=== PATIENT | male | born 1950 | race Caucasian/White ===

== ENCOUNTER 2016-09-04 22:00 | Inpatient (IN) | payer OTHER ==
[~2016-09-04] VITALS: Ht 172.7 cm; Wt 88.6 kg
[2016-09-04] MEDS ORDERED: TESTOSTERONE SUPP PO (22:29)
[2016-09-04] MEDS ORDERED: LEVO-519 PO (22:29)
[2016-09-04] MEDS ORDERED: MULT-513 PO (22:29)
[2016-09-04] MEDS ORDERED: LOSA50TA54 PO (22:29)
[2016-09-04] MEDS ORDERED: ACETAMINOPHEN 500 MG TAB PO STA (22:59)
[2016-09-04] MEDS ORDERED: CEFTRIAXONE SOD INJ 1 GM ADDVIAL IV STA (22:59)
[2016-09-04 23:59] LABS: PROTHROMBIN TIME (PATIENT) 10.7 SECONDS (9.0-12.0)
[2016-09-05 00:05] LABS: BUN/CREATININE RATIO 17.3 (10-20); CALCIUM 8.7 mg/dl (8.5-10.1); CREATININE 1.2 mg/dl (0.60-1.40); POTASSIUM 4.2 mmol/L (3.5-5.1)
[2016-09-05 00:08] LABS: ALB/GLOB RATIO 0.8 (0.9-2)
[2016-09-05 00:16] LABS: BASO % 0.1 %; BASO ABS # 0.02 K/uL (0-0.2); COMPLETE YES; EOS % 0.1 %; HEMATOCRIT 36.7 % (42-52); IG% 0.1 %; LYMPH % 6.1 %; LYMPH ABS # 0.86 K/uL (1.2-3.4); MEAN CELL VOLUME 86.6 fL (80-100); MEAN CORPUSCULAR HEMOGLOBIN 29.7 pg (25-34); MEAN CORPUSCULAR HGB CONC 34.3 g/dl (32-36); MEAN PLATELET VOLUME 10.9 fL (7.4-10.4); MONO % 7.2 %; NEUT % 86.4 %; PLATELET COUNT 85 K/uL (130-400); PLT ESTIMATE DECREASED; RED BLOOD COUNT 4.24 M/uL (4.7-6.1); WHITE BLOOD COUNT 14.08 K/uL (4.8-10.8)
[2016-09-05 00:38] LABS: LYME DISEASE AB IGG POS (NEG); LYME DISEASE AB IGM NEG (NEG)
[2016-09-05] MEDS ORDERED: OPTIRAY 320 IV PRN (01:15)
[2016-09-05] MEDS ORDERED: DOXYCYCLINE HYCLATE 100 MG CAP PO ONE (01:15)
--- NOTE | 2016-09-05 03:11 | EMERGENCY ROOM VISIT NOTE ---
History First contact with patient: 22:47 Chief Complaint: LEG PAIN,LEG INJURY Stated Complaint: RT LEG PAIN History of Present Illness The patient is a 65 year old male who presents to the Emergency Room with complaints of fever, chills, left knee and posterior thigh pain for the past day. Patient had tick bites before. No temperature was taken. Patient denies injury to the chest and, dyspnea, abdominal pain, vomiting, diarrhea, numbness, tingling. No IV drug abuse. No HIV. Review of Systems See HPI for pertinent positives & negatives. A total of 10 systems reviewed and were otherwise negative. Past Medical/Surgical History Hypertension, psoriasis, kidney stones, hypothyroidism, thrombocythemia Social History Smoking Status: Never Smoker Smokeless Tobacco Use: No Alcohol Use: none Drug Use: none Occupation Status: employed Current/Historical Medications Scheduled Levothyroxine Sodium (Synthroid), 137 MCG PO DAILY Losartan Potassium (Cozaar), 50 MG PO DAILY Multivitamins/Minerals (Mvi With Minerals), 1 TAB PO DAILY [Testosterone Supp], 1 TAB PO DAILY Allergies Uncoded Allergies: PCN (Allergy, Unknown, 10/24/02) Physical Exam Vital Signs Date Time Temp Pulse Resp B/P Pulse Ox O2 Delivery O2 Flow Rate FiO2 09/05/16 02:39 73 18 162/77 98 Room Air 09/05/16 00:40 85 18 138/68 97 Room Air 09/04/16 23:53 87 20 155/77 97 Room Air 09/04/16 22:08 37.8 107 20 168/94 97 Room Air Physical Exam VITALS: Vitals are noted on the nurse's note and reviewed by myself. Vital signs stable. GENERAL: Right posterior thigh erythematous and edematous concerning for cellulitis extending from the knee up to the groin region , in no acute distress , nondiaphoretic, well-developed well-nourished. SKIN: The skin was without rashes, erythema, edema, or bruising. There is no tenting of the skin. Capillary reflex less than 2 seconds. HEAD: Normocephalic atraumatic. EARS: External auditory canals clear, tympanic membranes pearly landry without erythema or effusion bilaterally. EYES: Pupils equal round and reactive to light and accommodation. Conjunctivae without injection, sclerae without icterus. Extraocular movements intact. NOSE: Patent, turbinates without inflammation or discharge. MOUTH: Mucous membranes moist. Pharynx without erythema or exudate. Uvula midline. Airway patent. Tongue does not deviate. NECK: Supple without nuchal rigidity. No lymphadenopathy. No thyromegaly. Cervical spine is nontender. No JVD. HEART: Regular rate and rhythm without murmurs gallops or rubs. LUNGS: Clear to auscultation bilaterally without wheezes, rales or rhonchi. No dullness to percussion. No retractions or accessory muscle use. ABDOMEN: Positive bowel sounds x 4. Normal tympanic percussion. Soft, nontender, without masses or organomegaly. Santo sign negative. No guarding or rebound tenderness. MUSCULOSKELETAL: No muscle atrophy, erythema, or edema noted. Right knee is slightly edematous and nontender to palpation. Right hip, ankle and foot nontender to palpation. Pedal pulses +2 equal present bilaterally. exam: No perineal infection, no testicular infection. Salon Manager present NEURO: Patient was alert and oriented to person place and time. Normal sensation to light and sharp touch. No focal neurological deficits. Medical Decision & Procedures Laboratory Results 09/04/16 23:30 Red Blood Count 4.24, Mean Corpuscular Volume 86.6, Mean Corpuscular Hemoglobin 29.7, Mean Corpuscular Hemoglobin Concent 34.3, Mean Platelet Volume 10.9, Neutrophils (%) (Auto) 86.4, Lymphocytes (%) (Auto) 6.1, Monocytes (%) (Auto) 7.2, Eosinophils (%) (Auto) 0.1, Basophils (%) (Auto) 0.1, Neutrophils # (Auto) 12.16, Lymphocytes # (Auto) 0.86, Monocytes # (Auto) 1.01, Eosinophils # (Auto) 0.01, Basophils # (Auto) 0.02 09/04/16 23:30 Test 09/04/16 23:30 09/04/16 23:45 White Blood Count 14.08 K/uL (4.8-10.8) Red Blood Count 4.24 M/uL (4.7-6.1) Hemoglobin 12.6 g/dL (14.0-18.0) Hematocrit 36.7 % (42-52) Mean Corpuscular Volume 86.6 fL (80-100) Mean Corpuscular Hemoglobin 29.7 pg (25-34) Mean Corpuscular Hemoglobin Concent 34.3 g/dl (32-36) Platelet Count 85 K/uL (130-400) Mean Platelet Volume 10.9 fL (7.4-10.4) Neutrophils (%) (Auto) 86.4 % Lymphocytes (%) (Auto) 6.1 % Monocytes (%) (Auto) 7.2 % Eosinophils (%) (Auto) 0.1 % Basophils (%) (Auto) 0.1 % Neutrophils # (Auto) 12.16 K/uL (1.4-6.5) Lymphocytes # (Auto) 0.86 K/uL (1.2-3.4) Monocytes # (Auto) 1.01 K/uL (0.11-0.59) Eosinophils # (Auto) 0.01 K/uL (0-0.5) Basophils # (Auto) 0.02 K/uL (0-0.2) RDW Standard Deviation 40.4 fL (36.4-46.3) RDW Coefficient of Variation 12.7 % (11.5-14.5) Immature Granulocyte % (Auto) 0.1 % Immature Granulocyte # (Auto) 0.02 K/uL (0.00-0.02) Platelet Estimate DECREASED Red Blood Cell Morphology Unremarkable Prothrombin Time 10.7 SECONDS (9.0-12.0) Prothromb Time International Ratio 1.0 (0.9-1.1) Activated Partial Thromboplast Time 25.4 SECONDS (21.0-31.0) Partial Thromboplastin Ratio 1.0 Anion Gap 9.0 mmol/L (3-11) Est Creatinine Clear Calc Drug Dose 68.7 ml/min Estimated GFR () 73.6 Estimated GFR (Non- 63.5 BUN/Creatinine Ratio 17.3 (10-20) Calcium Level 8.7 mg/dl (8.5-10.1) Total Bilirubin 0.8 mg/dl (0.2-1) Aspartate Amino Transf (AST/SGOT) 29 U/L (15-37) Alanine Aminotransferase (ALT/SGPT) 36 U/L (12-78) Alkaline Phosphatase 97 U/L (45-117) Total Protein 7.2 gm/dl (6.4-8.2) Albumin 3.3 gm/dl (3.4-5.0) Globulin 3.9 gm/dl (2.5-4.0) Albumin/Globulin Ratio 0.8 (0.9-2) Lyme Disease IgG Antibody POS (NEG) Bedside Lactic Acid Venous 1.21 mmol/L (0.90-1.70) Medications Administered Medications (Trade) Dose Ordered Sig/Jasmyne Route Start Time Stop Time Status Last Admin Dose Admin Ceftriaxone Sodium (Rocephin Inj) 1 gm NOW STAT IV 09/04/16 22:59 09/04/16 23:02 DC 09/04/16 23:49 1 GM Acetaminophen (Tylenol Tab) 1,000 mg NOW STAT PO 09/04/16 22:59 09/04/16 23:02 DC 09/04/16 23:49 1,000 MG Doxycycline Hyclate (Vibramycin Cap) 100 mg ONE ONCE PO 09/05/16 01:15 09/05/16 01:16 DC 09/05/16 01:10 100 MG ED Course Prior records reviewed and summarized as above. Triage Nursing notes reviewed. Additional history obtained from friend. The patient's history was concerning for swelling and redness of the skin. Differential diagnosis: Etiologies such as cellulitis, abscess, MRSA infection, DVT, necrotizing fasciitis, dermatitis, drug eruption, as well as others were entertained.. Physical examination: As above ER treatment provided: Rocephin, doxycycline On reassessment the patient felt better. Diagnostics interpreted by me: The labs revealed leukocytosis, thrombocytopenia, positive Lyme screen Imaging studies: Knee x-ray with soft tissue swelling without fracture per my interpretation CT EXTREMITY RIGHT LOWER: Comparison is made to right lower extremity venous ultrasound performed . Right knee demonstrates a large joint effusion. There is a multilobulated popliteal cyst extending from the popliteal fossa cephalad into the posterior soft tissues of the right thigh measuring approximately 1.8 x 3.4 x 18.2 cm. Mild peripheral enhancement within the popliteal cyst suggests synovitis. There is associated intramuscular edema within the posterior compartment of the thigh as well as edema along the fascial planes and in the subcutaneous tissues of the right thigh and leg. This may be a consequence of popliteal cyst rupture and/or cellulitis. Radiologist: Isaías Humphreys M.D. ultrasound was reviewed by radiology and CT was ordered per recommendation Consultation: A consultation was placed with Dr Noel, hospitalist. The case was discussed and diagnostics were reviewed. The patient was evaluated in the ER for further treatment. This appears to be extensive right leg cellulitis versus cyst rupture. Patient was febrile with a leukocytosis. He'll be evaluated by medicine. He was started on antibiotics. He had a positive Lyme screen. He was given doxycycline also. He has had tick bites in the past. Patient is agreeable to treatment plan. By the evaluation outlined above emergent etiologies such as DVT, as well as others were deemed relatively unlikely. The pt informed about the findings as listed above. All questions were answered and pleased with the treatment. case reviewed by my Attending Medical Decision As above Impression Primary Impression: Cellulitis of right leg Departure Information Dispostion Being Evaluated By Hospitalist Condition FAIR Referrals Rosalva Bowie M.D. (MEDICAL) (PCP) Patient Instructions A Signature Page, My [facility]
[2016-09-05] MEDS ORDERED: OXYCODONE/ACETAMINOPHEN 5-325 TAB PO PRN (05:00)
[2016-09-05] MEDS ORDERED: ONDANSETRON INJ 2 MG/ML 2 ML VIAL IV PRN (05:00)
[2016-09-05] MEDS ORDERED: CLONIDINE HCL 0.1 MG TAB PO PRN (05:00)
[2016-09-05] MEDS ORDERED: ACETAMINOPHEN 325 MG TAB PO PRN (05:00)
--- NOTE | 2016-09-05 05:04 | History and Physical ---
History & Physical Date & Time of Service: Sep 05, 2016 at 04:59 Chief Complaint: Rt Leg Pain Primary Care Physician: Rosalva Bowie M.D. (MEDICAL) History of Present Illness Source: patient, clinic records 65 year old male with history of hypertension, hypothyroidism presenting with right posterior knee and thigh swelling and pain x 2 days. Patient was at his usual state of health until about 2 days ago when he started to notice pain and swelling on the posterior aspect of his left knee, which eventually progressed to the posterior thigh. He also notes fever with this. He denies having any trauma to the leg. Last tick bite noted last year. Progression of symptoms prompted ER consult. Patient was received at the ER febrile, tachycardic,(+) leukocytosis. CT right leg reveals collection at the popliteal to the posterior thigh region. Doppler US of the right leg: no DVT. He was given Ceftri + Doxy. On my exam, patient was resting in bed, pleasant. He states his pain on the right thigh is severe. Denies any testicular pain. No chest pain, palpitations, dizziness, nausea/vomiting, abdominal pain, dyspnea. No other symptoms. Family History non contributory Social History Smoking Status: Never Smoker Smokeless Tobacco Use: No Drug Use: none Marital Status: Occupational Status: employed Multi-Drug Resistant Organisms History of MDRO: No Allergies Uncoded Allergies: PCN (Allergy, Unknown, 10/24/02) Home Medications Scheduled Levothyroxine Sodium (Synthroid), 137 MCG PO DAILY Losartan Potassium (Cozaar), 50 MG PO DAILY Multivitamins/Minerals (Mvi With Minerals), 1 TAB PO DAILY [Testosterone Supp], 1 TAB PO DAILY Review of Systems Constitutional- (+) as noted above Eyes- no acute visual changes ENT- no sinus drainage; no pharyngitis Pulmonary- no cough, no wheezing, no shortness of breath Cardiac- no chest pain, no palpitations, no orthopnea, no dependent edema GI- no nausea, no vomiting, no diarrhea, no melena, no hematochezia - no dysuria, no hematuria Musculoskeletal- (+) as noted above Derm- no rashes, no new skin lesions, no changing skin lesions Hematologic- no unusual bruising, no unusual bleeding Lymphatics- no adenopathy Endocrine- no polyuria or polydipsia; no heat or cold intolerance Neuro- no headaches, no focal neurologic symptoms Psych- no anxiety, no depression Physical Exam Vital Signs Date Time Temp Pulse Resp B/P Pulse Ox O2 Delivery O2 Flow Rate FiO2 09/05/16 04:39 82 18 146/62 97 Room Air 09/05/16 02:39 73 18 162/77 98 Room Air 09/05/16 00:40 85 18 138/68 97 Room Air 09/04/16 23:53 87 20 155/77 97 Room Air 09/04/16 22:08 37.8 107 20 168/94 97 Room Air General- adult , oriented x 3, not in distress, speaks in sentences with no effort Head- atraumatic Eyes- PERRL, EOMI, anicteric ENT- oropharynx clear Neck- supple, no JVD, no adenopathy, no thyromegaly Lungs- clear to auscultation bilaterally Heart-normal rate, regular rhythm; no murmur Abdomen- normal bowel sounds, soft, nontender Extremities- (+) right medial/posterior thigh edema, erythema, warmth, tenderness extending to right popliteal region left leg essentially normla Neuro- alert, oriented x 3; no gross focal deficits Skin- warm & dry Diagnostics Laboratory Results Results Past 24 Hours Test 09/04/16 23:30 09/04/16 23:45 Range/Units White Blood Count 14.08 4.8-10.8 K/uL Red Blood Count 4.24 4.7-6.1 M/uL Hemoglobin 12.6 14.0-18.0 g/dL Hematocrit 36.7 42-52 % Mean Corpuscular Volume 86.6 80-100 fL Mean Corpuscular Hemoglobin 29.7 25-34 pg Mean Corpuscular Hemoglobin Concent 34.3 32-36 g/dl Platelet Count 85 130-400 K/uL Mean Platelet Volume 10.9 7.4-10.4 fL Neutrophils (%) (Auto) 86.4 % Lymphocytes (%) (Auto) 6.1 % Monocytes (%) (Auto) 7.2 % Eosinophils (%) (Auto) 0.1 % Basophils (%) (Auto) 0.1 % Neutrophils # (Auto) 12.16 1.4-6.5 K/uL Lymphocytes # (Auto) 0.86 1.2-3.4 K/uL Monocytes # (Auto) 1.01 0.11-0.59 K/uL Eosinophils # (Auto) 0.01 0-0.5 K/uL Basophils # (Auto) 0.02 0-0.2 K/uL RDW Standard Deviation 40.4 36.4-46.3 fL RDW Coefficient of Variation 12.7 11.5-14.5 % Immature Granulocyte % (Auto) 0.1 % Immature Granulocyte # (Auto) 0.02 0.00-0.02 K/uL Platelet Estimate DECREASED Red Blood Cell Morphology Unremarkable Prothrombin Time 10.7 9.0-12.0 SECONDS Prothromb Time International Ratio 1.0 0.9-1.1 Activated Partial Thromboplast Time 25.4 21.0-31.0 SECONDS Partial Thromboplastin Ratio 1.0 Sodium Level 137 136-145 mmol/L Potassium Level 4.2 3.5-5.1 mmol/L Chloride Level 104 98-107 mmol/L Carbon Dioxide Level 24 21-32 mmol/L Anion Gap 9.0 3-11 mmol/L Blood Urea Nitrogen 21 7-18 mg/dl Creatinine 1.20 0.60-1.40 mg/dl Est Creatinine Clear Calc Drug Dose 68.7 ml/min Estimated GFR () 73.6 Estimated GFR (Non- 63.5 BUN/Creatinine Ratio 17.3 10-20 Random Glucose 167 70-99 mg/dl Calcium Level 8.7 8.5-10.1 mg/dl Total Bilirubin 0.8 0.2-1 mg/dl Aspartate Amino Transf (AST/SGOT) 29 15-37 U/L Alanine Aminotransferase (ALT/SGPT) 36 12-78 U/L Alkaline Phosphatase 97 45-117 U/L Total Protein 7.2 6.4-8.2 gm/dl Albumin 3.3 3.4-5.0 gm/dl Globulin 3.9 2.5-4.0 gm/dl Albumin/Globulin Ratio 0.8 0.9-2 Lyme Disease IgG Antibody POS NEG Lyme Disease IgM Antibody NEG NEG Bedside Lactic Acid Venous 1.21 0.90-1.70 mmol/L Microbiology Results 09/04/16 Blood Culture, Received Pending 09/04/16 Blood Culture, Received Pending Diagnostic Radiology CT leg: per H&P Doppler US: no DVT on the right leg Impression Assessment and Plan 65 year old male with history of hypertension, hypothyroidism presenting with right posterior knee and thigh swelling and pain x 2 days. SEPSIS SECONDARY TO POSSIBLE RIGHT KNEE SEPTIC ARTHRITIS VS. INFECTED RUPTURED POPLITEAL CYST R/O NECROTIZING FASCIITIS IV fluids empiric Daptomycin, Zosyn, Clindamycin IV ID and Ortho consult NPO for now PRN analgesics POSSIBLE LYME DISEASE ID consulted HYPERTENSION resume usual Losartan PRN Clonidine HYPOTHYROIDISM continue usual Lthyroxine CHRONIC THROMBOCYTOPENIA stable FULL CODE PER PATIENT SCDs for now DISPOSITION pending lives at home VTE Prophylaxis VTE Risk Assessment Done? Y/N: Yes Risk Level: Moderate
[2016-09-05 05:47] VITALS: BP 164/75; PULSE 77; TEMP 36.8; O2SAT 98; Ht 172.7 cm; Wt 88.6 kg
[2016-09-05] MEDS ORDERED: DAPTOMYCIN CONSULT ACTIVE PRN ×2 (06:15)
[2016-09-05] MEDS ORDERED: CLINDAMYCIN CONSULT ACTIVE PRN ×2 (06:15)
[2016-09-05] MEDS ORDERED: DAPTOMYCIN IV 500 MG in NSS 50ML IV SCH (06:15)
[2016-09-05] MEDS ORDERED: AZTREONAM CONSULT ACTIVE PRN ×2 (06:15)
[2016-09-05] MEDS: SODIUM CHLORIDE 0.9% 1000ML 1,000 ML IV SCH ×3 (06:17→19:06)
[2016-09-05] MEDS: TRAMADOL HCL 50 MG TAB PO PRN ×3 (06:18→20:05)
[2016-09-05] MEDS: LEVOTHYROXINE 137 MCG TAB PO SCH (06:18)
[2016-09-05] MEDS ORDERED: CLINDAMYCIN IV 900 MG in DEXTROSE 5% ADD-VANTAGE 100ML 100 ML IV SCH ×2 (07:00→08:00)
[2016-09-05] MEDS ORDERED: AZTREONAM 2000 MG in DEXTROSE 5% 100 ML IV ONE (07:00)
[2016-09-05 07:05] VITALS: BP 139/72; PULSE 79; TEMP 37.1; O2SAT 97
--- NOTE | 2016-09-05 07:06 | DIAGNOSTIC IMAGING REPORT ---
ULTRASOUND RIGHT LOWER EXTREMITY VENOUS CLINICAL HISTORY: Right leg pain and swelling. COMPARISON STUDY: No priors. TECHNIQUE: Real-time, grayscale, and color Doppler sonography of the deep veins of the right lower extremity was performed from the inguinal crease to the calf. Compression and augmentation were utilized. FINDINGS: There is no sonographic evidence of deep venous thrombosis identified in the right lower extremity. The common femoral, superficial femoral, and popliteal veins are patent and normally compressible. The greater saphenous vein and the profunda femoris vein at the junction with the common femoral vein are clear. The visualized calf veins are patent. A complex popliteal cyst measures 13.5 x 3.6 x 2.4 cm. IMPRESSION: 1. There is no sonographic evidence of deep venous thrombosis identified in the right lower extremity. 2. Complex popliteal cyst as above. Electronically signed by: Valdemar Carvajal M.D. 09/05/2016 7:05 AM
--- NOTE | 2016-09-05 07:18 | DIAGNOSTIC IMAGING REPORT ---
CT RIGHT THIGH WITH CONTRAST CT DOSE: 472.89 mGy.cm CLINICAL HISTORY: Right proximal leg swelling and redness. Possible abscess. TECHNIQUE: The patient was scanned in a dynamic helical fashion during intravenous administration of 92 cc of Optiray 320. Coronal and sagittal reformatted images were acquired. COMPARISON STUDY: DVT study dated 09/04/2016 FINDINGS: There are mildly prominent inguinal lymph nodes, likely reactive. The prostate is enlarged measuring 66 mm. There is diffuse soft tissue edema within the thigh. There is fluid abutting the muscular fascia laterally. Popliteal cyst which appears to extend cephalad into the posterior soft tissues of the right thigh. The popliteal fluid collection extends cephalad and measures 18 x 33 x 23 mm. The fluid collection extends within or adjacent to the semimembranosus muscle. There is edema within the posterior compartment of the thigh. No fractures are visualized. No bony destructive lesions are evident. IMPRESSION: 1. Large joint effusion 2. Popliteal cyst which appears to extend cephalad at the posterior soft tissues of the thigh measuring 18 x 33 x 23 mm. The fluid is contiguous with the semitendinosus muscle and there is posterior compartment edema 3. Nonspecific 9 mm hyperdense focus within the fluid collection abutting or within the semimembranous muscle. This could represent a small enhancing nodule, a focus of hemorrhage, or aneurysm. 4. Diffuse edema with fluid abutting the fascial margin of the vastus lateralis 5. No evidence of fracture. No destructive lesions identified 6. Prominent inguinal nodes likely reactive 7. Prostamegaly Electronically signed by: Stevo Lyon M.D. 09/05/2016 7:16 AM
--- NOTE | 2016-09-05 07:44 | DIAGNOSTIC IMAGING REPORT ---
RIGHT KNEE 3 VIEWS CLINICAL HISTORY: Right knee pain and swelling. FINDINGS: AP, crosstable lateral, and sunrise views of the right knee are obtained. No prior studies are available for comparison at the time of dictation. The skeletal structures are well mineralized. No fracture is seen. There is mild degenerative narrowing of the patellofemoral articulation. The medial and lateral compartments appear preserved. There are small patellar enthesophytes. A large joint effusion is identified. There is prepatellar soft tissue edema as well as soft tissue swelling present around the knee. IMPRESSION: Soft tissue edema and joint effusion. No acute bony abnormality is identified in the right knee. Electronically signed by: Valdemar Carvajal M.D. 09/05/2016 7:43 AM
[2016-09-05] MEDS: CEROVITE ADV FORMULA TAB PO SCH (09:23)
[2016-09-05] MEDS: LOSARTAN POTASSIUM 50 MG TAB PO SCH (09:23)
--- NOTE | 2016-09-05 12:39 | Medical Consult ---
Consultation Date of Consultation: Sep 05, 2016. Attending Physician: Martin Elizabeth M.D. Reason for Consultation: Right leg cellulitis History of Present Illness Patient is a 65 yo male who presented to the ED with concerns of fever, chills, right knee and posterior thigh pain, and malaise for the past few days. The patient states that the swelling behind his knee started approximately 3 days ago, but gradually worsened since that time. He states that he has had mild swelling of his knee in the past but it has typically gone away "on its own". This time, the swelling began to increase and he noted pain and erythema of the knee and right inner thigh. The patient started to feel ill and his family encouraged him to be evaluated at the ED. the patient was initially given IV Ceftriaxone and Doxycycline in the ED. He denies groin pain. His fever, sweats and chills have subsided since admission. He had a low grade fever of 37.8 C on admission but has since been afebrile. WBC count on admission was 14.08. His platelets were noted to be low at 85. Creatinine was 1.2. Lyme screen IgG is positive and IgM is negative. WB is pending. He was changed to IV Daptomycin, Aztreonam, and Clindamycin. Blood cultures are pending. Right lower extremity CT scan showed large joint effusion, popliteal cyst measuring [id number] mm extending into the posterior soft tissues of the thigh, hyperdense focus within that fluid, diffuse edema, prominent inguinal lymph nodes, and prostatomegaly. Patient states that he did noted some swelling over the posterior portion of his knee approximately 2 years ago which resolved on its own at the time. He has not had swelling in that area since, but does get on and off swelling of the prepatellar region that resolves on its own. The patient does have mild psoriasis as well which he has a small lesion over his right prepatellar area now. He also notes that he does sometimes get some tenderness in his bilateral inguinal/groin areas which feels like he was "kicked in the groin". He notes this feeling approximately 1-2 times per year. Following the groin tenderness, he then develops mild fever, sweats, and chills for a days or so. After the fever resolves, he gets severe penile swelling for multiple days. He does not have difficulty urinating when this happens, but he does have difficulty with intercourse and also pain/tenderness of the area. He has never had this evaluated. The patient also notes that he had a kidney stone which require lithotripsy approximately 10 years ago or so at which time he had routine labs drawn pre-op and was noted to have a platelet count of 4,000. He had these labs drawn again and was still very low. He was evaluated for splenectomy but did not wish to have that done at the time. He was given a long course of prednisone during which time his platelets did increase slightly. He has not had labs drawn since that time, but was noted to have mild thrombocytopenia on admission. Past Medical/Surgical History Medical Problems: (1) Cellulitis of right leg Status: Acute Medical Problems: (1) Sepsis Family History Noncontributory Social History Smoking Status: Never Smoker Smokeless Tobacco Use: No Drug Use: none Marital Status: Occupation Status: employed Allergies Coded Allergies: Penicillins (Verified Allergy, Unknown, ., 09/05/16) Home Medications Reported Home Medications Medications Dose Route/Sig Max Daily Dose Days Date Category [Testosterone Supp] 1 Tab PO DAILY 09/04/16 Reported Mvi With Minerals (Multivitamins/Minerals) Tab 1 Tab PO DAILY 09/04/16 Reported Cozaar (Losartan Potassium) 50 Mg Tab 50 Mg PO DAILY 09/04/16 Reported Synthroid (Levothyroxine Sodium) 137 Mcg Tab 137 Mcg PO DAILY 09/04/16 Reported Current Inpatient Medications Current Inpatient Medications Medications (Trade) Dose Ordered Sig/Jasmyne Route Start Time Stop Time Status Last Admin Dose Admin Ioversol (Optiray 320) 100 ml UD PRN IV 09/05/16 01:15 09/09/16 01:14 Acetaminophen (Tylenol Tab) 650 mg Q4H PRN PO 09/05/16 05:00 10/05/16 04:59 Ondansetron HCl 4 mg 4 mg Q6H PRN IV 09/05/16 05:00 10/05/16 04:59 Sodium Chloride (Nss 1000ml) 1,000 ml @ 150 mls/hr Q6H40M IV 09/05/16 06:00 10/05/16 05:59 09/05/16 06:17 150 MLS/HR Daptomycin (Consult) 1 ea UD PRN N/A 09/05/16 06:15 10/05/16 06:14 Tramadol HCl (Ultram Tab) 50 mg Q6H PRN PO 09/05/16 05:00 10/05/16 04:59 09/05/16 06:18 50 MG Oxycodone/ Acetaminophen (Percocet 5-325MG Tab) 1 tab Q6H PRN PO 09/05/16 05:00 09/19/16 04:59 Levothyroxine Sodium (Synthroid Tab) 137 mcg DAILYBB PO 09/05/16 06:00 10/05/16 05:59 09/05/16 06:18 137 MCG Losartan Potassium (coZAAR TAB) 50 mg DAILY PO 09/05/16 09:00 10/05/16 08:59 09/05/16 09:23 50 MG Multivitamins/ Minerals (Multivitamin W/ Minerals Tab) 1 tab DAILY PO 09/05/16 09:00 10/05/16 08:59 09/05/16 09:23 1 TAB Clonidine HCl (Catapres Tab) 0.1 mg Q6H PRN PO 09/05/16 05:00 10/05/16 04:59 Aztreonam (Consult) 1 ea UD PRN N/A 09/05/16 06:15 10/05/16 06:14 Clindamycin Phosphate 1 ea 1 ea UD PRN N/A 09/05/16 06:15 10/05/16 06:14 Daptomycin 525 mg/ Sodium Chloride 60.5 ml @ 120 mls/hr Q24H IV 09/06/16 06:00 09/15/16 05:59 Aztreonam 2000 mg/ Dextrose 110 ml @ 110 mls/hr Q8H IV 09/05/16 16:00 09/15/16 15:59 Clindamycin Phosphate/Dextrose (Cleocin Iv/ Dextrose Add-[place] 100ML) 106 ml @ 106 mls/hr Q8H IV 09/05/16 16:00 09/15/16 15:59 Review of Systems Constitutional: + chills, + fever (101 F at home), + sweats (OSTOMY RN- now resolved) Eyes: No worsening of vision ENT: No hearing loss, No sore throat Respiratory: No cough, No shortness of breath Cardiovascular: No chest pain, No palpitations Abdomen: No diarrhea, No nausea, No pain, No vomiting Musculoskeletal: + joint pain (right knee- severe, can not weight bear), + swelling (right thigh, posterior knee (right)) Genitourinary - Male: + problem reported (intermittent groin pain/penile swelling described in HPI), No dysuria, No hematuria, No urinary frequency Neurologic: No numbness/tingling Integumentary: + color change (erythema right thigh), No rash Physical Exam Date Time Temp Pulse Resp B/P Pulse Ox O2 Delivery O2 Flow Rate FiO2 09/05/16 08:00 Room Air 09/05/16 07:05 37.1 79 16 139/72 97 Room Air 09/05/16 05:47 36.8 77 20 164/75 98 Room Air 09/05/16 05:06 37.0 82 18 146/62 97 09/05/16 04:39 82 18 146/62 97 Room Air 09/05/16 02:39 73 18 162/77 98 Room Air 09/05/16 00:40 85 18 138/68 97 Room Air 09/04/16 23:53 87 20 155/77 97 Room Air 09/04/16 22:08 37.8 107 20 168/94 97 Room Air General Appearance: WD/WN, no apparent distress Head: normocephalic, atraumatic Eyes: normal inspection, sclerae normal ENT: hearing grossly normal Neck: supple, trachea midline Respiratory/Chest: chest non-tender, normal breath sounds, no respiratory distress, no accessory muscle use, + crackles (mild bilateral bases) Cardiovascular: regular rate, rhythm Abdomen/GI: normal bowel sounds, non tender, soft Back: normal inspection Extremities/Musculoskelatal: + swelling (right knee joint with mild swelling. Posterior knee moderate swelling and tenderness. Inner thigh with moderate swelling/induration) Neurologic/Psych: alert, normal mood/affect Skin: warm/dry, no rash, + pertinent finding (Moderate erythema of the right inner thigh tracking down below knee and up almost to groin) Laboratory Results CT RIGHT THIGH WITH CONTRAST CT DOSE: 472.89 mGy.cm CLINICAL HISTORY: Right proximal leg swelling and redness. Possible abscess. TECHNIQUE: The patient was scanned in a dynamic helical fashion during intravenous administration of 92 cc of Optiray 320. Coronal and sagittal reformatted images were acquired. COMPARISON STUDY: DVT study dated 09/04/2016 FINDINGS: There are mildly prominent inguinal lymph nodes, likely reactive. The prostate is enlarged measuring 66 mm. There is diffuse soft tissue edema within the thigh. There is fluid abutting the muscular fascia laterally. Popliteal cyst which appears to extend cephalad into the posterior soft tissues of the right thigh. The popliteal fluid collection extends cephalad and measures 18 x 33 x 23 mm. The fluid collection extends within or adjacent to the semimembranosus muscle. There is edema within the posterior compartment of the thigh. No fractures are visualized. No bony destructive lesions are evident. IMPRESSION: 1. Large joint effusion 2. Popliteal cyst which appears to extend cephalad at the posterior soft tissues of the thigh measuring 18 x 33 x 23 mm. The fluid is contiguous with the semitendinosus muscle and there is posterior compartment edema 3. Nonspecific 9 mm hyperdense focus within the fluid collection abutting or within the semimembranous muscle. This could represent a small enhancing nodule, a focus of hemorrhage, or aneurysm. 4. Diffuse edema with fluid abutting the fascial margin of the vastus lateralis 5. No evidence of fracture. No destructive lesions identified 6. Prominent inguinal nodes likely reactive 7. Prostamegaly Item Value Date Time Blood Culture Received 09/04/162337 Blood Pending Blood Culture Received 09/04/162329 Blood Pending Last 24 Hours Test 09/04/16 23:30 09/04/16 23:45 White Blood Count 14.08 K/uL Red Blood Count 4.24 M/uL Hemoglobin 12.6 g/dL Hematocrit 36.7 % Mean Corpuscular Volume 86.6 fL Mean Corpuscular Hemoglobin 29.7 pg Mean Corpuscular Hemoglobin Concent 34.3 g/dl Platelet Count 85 K/uL Mean Platelet Volume 10.9 fL Neutrophils (%) (Auto) 86.4 % Lymphocytes (%) (Auto) 6.1 % Monocytes (%) (Auto) 7.2 % Eosinophils (%) (Auto) 0.1 % Basophils (%) (Auto) 0.1 % Neutrophils # (Auto) 12.16 K/uL Lymphocytes # (Auto) 0.86 K/uL Monocytes # (Auto) 1.01 K/uL Eosinophils # (Auto) 0.01 K/uL Basophils # (Auto) 0.02 K/uL RDW Standard Deviation 40.4 fL RDW Coefficient of Variation 12.7 % Immature Granulocyte % (Auto) 0.1 % Immature Granulocyte # (Auto) 0.02 K/uL Platelet Estimate DECREASED Red Blood Cell Morphology Unremarkable Prothrombin Time 10.7 SECONDS Prothromb Time International Ratio 1.0 Activated Partial Thromboplast Time 25.4 SECONDS Partial Thromboplastin Ratio 1.0 Sodium Level 137 mmol/L Potassium Level 4.2 mmol/L Chloride Level 104 mmol/L Carbon Dioxide Level 24 mmol/L Anion Gap 9.0 mmol/L Blood Urea Nitrogen 21 mg/dl Creatinine 1.20 mg/dl Est Creatinine Clear Calc Drug Dose 68.7 ml/min Estimated GFR () 73.6 Estimated GFR (Non- 63.5 BUN/Creatinine Ratio 17.3 Random Glucose 167 mg/dl Calcium Level 8.7 mg/dl Total Bilirubin 0.8 mg/dl Aspartate Amino Transf (AST/SGOT) 29 U/L Alanine Aminotransferase (ALT/SGPT) 36 U/L Alkaline Phosphatase 97 U/L Total Protein 7.2 gm/dl Albumin 3.3 gm/dl Globulin 3.9 gm/dl Albumin/Globulin Ratio 0.8 Lyme Disease IgG Antibody POS Lyme Disease IgM Antibody NEG Bedside Lactic Acid Venous 1.21 mmol/L Assessment & Plan Patient with right inner thigh, posterior knee, and knee joint swelling along with erythema and warmth. Question whether this patient may have septic popiteal cyst versus cellulitis versus septic joint. No history of knee surgery/ trauma. Patient is currently on IV Azactam, IV Clindamycin, and IV Daptomycin. Will change IV Daptomycin to IV Vancomycin, but otherwise this is appropriate coverage given the patient's PCN allergy and severe infection. Continue Clindamycin for anaerobic coverage and toxin reduction. Will wait orthopedic opinion but feel that this patient likely will need an aspiration of the right knee/popliteal fossa if able due to fluid collection with clear surrounding infection. We will continue to follow and adjust abx as able. Plan: 1. D/C Daptomycin- start IV Vancomycin 2. Continue Clinda and Azactam 3. Await ortho opinion- aspiration? 4. Still question possibility of Lyme arthritis, but seems less likely- will await aspiration. Case reviewed and agree with above assessment.
[2016-09-05] MEDS ORDERED: NURSING VERBAL MED ORDER ONE (14:00)
[2016-09-05] MEDS ORDERED: LIDOCAINE HCL 1% 20 ML VIAL INFIL SCH (14:15)
[2016-09-05 15:05] VITALS: BP 132/71; PULSE 77; TEMP 36.8; O2SAT 97
[2016-09-05] MEDS: AZTREONAM 2000 MG in DEXTROSE 5% 100 ML IV SCH ×2 (15:38→23:20)
[2016-09-05] MEDS: CLINDAMYCIN IV 900 MG in DEXTROSE 5% ADD-VANTAGE 100ML 100 ML IV SCH ×2 (15:40→23:24)
--- NOTE | 2016-09-05 16:38 | OPERATIVE REPORT ---
DATE OF OPERATION: 09/05/2016 PREOPERATIVE DIAGNOSIS: Large effusion, right knee. POSTOPERATIVE DIAGNOSIS: Same. PROCEDURE: Aspiration, right knee. SURGEON: Dr. York. ANESTHESIA: Local using 3 mL of 1% lidocaine. CULTURES: Aerobic and anaerobic. COMPLICATIONS: None. DESCRIPTION OF PROCEDURE: Following satisfactory local anesthesia using lidocaine, the site was prepared with Betadine and alcohol was discussed with the patient. An aspiration was then performed using an 18 gauge needle in the superior lateral portal. Approximately 60-80 mL of what appeared to be inflammatory class fluid which was not purulent, but inflammatory in nature was aspirated and sent for culture, Gram stain, synovial fluid analysis and cell count also crystal analysis. A dry dressing was applied. The patient tolerated the procedure well. I attest to the content of the Intraoperative Record and any orders documented therein. Any exceptio ns are noted below.
--- NOTE | 2016-09-05 16:50 | ORTHOPEDIC CONSULTATION ---
DATE OF CONSULTATION: 09/05/2016 CHIEF COMPLAINT: Right knee swelling and pain. HISTORY OF PRESENT ILLNESS: This patient is a 65-year-old male with a relatively benign medical history which includes hypertension and hypothyroidism. He was admitted on the evening prior because of swelling and discomfort in his knee. He states that he was in his usual state of health. Approximately 3 or 4 days ago began noticing some swelling. The swelling got worse over the last 24-48 hours and became more intolerable. He was admitted apparently yesterday for rule out infection versus sepsis. The patient has been on IV antibiotics. He basically is complaining of significant knee pain. He states that he did have a similar episode about a year or two ago where the knee swelled up, but it went away on without any specific treatment. Has a remote history of tick bite as well. MEDICAL AND SURGICAL HISTORY: See history and physical. MEDICATIONS: On admission Synthroid 137 mcg per day and Cozaar 50 mg per day. REVIEW OF SYSTEMS: No real fever or chills. Is positive for mostly pain and swelling in the knee. PHYSICAL EXAMINATION: Pleasant, engaging gentleman who is in bed. General exam of the skin shows he has some mild psoriatic lesions on the knee. His knee is somewhat swollen and very warm to touch. It is not really that red. His swelling is mostly in the knee and in the popliteal space. I do not appreciate any cellulitis. The knee is painful on range of motion. White blood cell count is 14.8. Differential shows 86% neutrophils. Of note, other laboratories sed rate and CRP are not done, uric acid is also not done. X-rays were reviewed, plain imaging of the knee shows a relatively normal knee with moderate effusion but no arthritis. CT scan shows a large joint effusion with popliteal cyst continuous. There is diffuse edema. IMPRESSION: Knee swelling and discomfort. PROCEDURE: The patient's knee was aspirated. This was aspirated under sterile technique for about 65-80 mL of what appeared to be inflammatory fluid. It did not look like pus. The appearance of this fluid would be more consistent with gout than it would be infection. Fluid was sent for Gram stain, culture, cell count and synovial fluid analysis. IMPRESSION: Knee effusion most likely due to gout. PLAN: At this point, await cultures, would recommend continuing IV antibiotics pending the culture results. Would also recommend obtaining a serum uric acid, sed rate, CRP and began empiric treatment for gout. This was discussed with the attending physician. We will follow him pending the results of his cultures. Thank you for this consult.
[2016-09-05] MEDS ORDERED: VANCOMYCIN CONSULT ACTIVE PRN (17:00)
[2016-09-05 17:23] LABS: SYNOVIAL FLUID APPEARANCE TURBID; SYNOVIAL FLUID COLOR YELLOW
[2016-09-05 17:24] LABS: SYNOVIAL FLUID MONONUC RELAT 5.7 %; SYNOVIAL FLUID POLYNUC RELAT 94.3 %
[2016-09-05 17:25] LABS: SALINE CHECK YES
--- NOTE | 2016-09-05 17:57 | Progress Note ---
Medicine Progress Note Date & Time of Visit: Sep 05, 2016 at 17:32. Subjective Pt was seen and examined Lying in bed watching TV with no distress Pt said that the pain improved, but pigment furnace tender if he tries to bed the knee Denies any fever, palpitation, dizziness and SOB Pt said that he is hungry Objective Last 8 Hrs Date Time Temp Pulse Resp B/P Pulse Ox O2 Delivery O2 Flow Rate FiO2 09/05/16 15:05 36.8 77 16 132/71 97 Room Air Physical Exam: General- No acute distress, very pleasant Head- atraumatic Eyes- PERRL, EOMI ENT- oropharynx clear Neck- supple, no JVD Lungs- clear to auscultation and percussion Heart- regular rhythm; no murmur Abdomen- normal bowel sounds, soft, nontender Extremities- right knee swelling and tenderness and warm, Neuro- alert, oriented x 3; PERRL, EOMI Skin- warm & dry Laboratory Results: Last 24 Hours Test 09/04/16 23:30 09/04/16 23:45 09/05/16 16:15 White Blood Count 14.08 K/uL Red Blood Count 4.24 M/uL Hemoglobin 12.6 g/dL Hematocrit 36.7 % Mean Corpuscular Volume 86.6 fL Mean Corpuscular Hemoglobin 29.7 pg Mean Corpuscular Hemoglobin Concent 34.3 g/dl Platelet Count 85 K/uL Mean Platelet Volume 10.9 fL Neutrophils (%) (Auto) 86.4 % Lymphocytes (%) (Auto) 6.1 % Monocytes (%) (Auto) 7.2 % Eosinophils (%) (Auto) 0.1 % Basophils (%) (Auto) 0.1 % Neutrophils # (Auto) 12.16 K/uL Lymphocytes # (Auto) 0.86 K/uL Monocytes # (Auto) 1.01 K/uL Eosinophils # (Auto) 0.01 K/uL Basophils # (Auto) 0.02 K/uL RDW Standard Deviation 40.4 fL RDW Coefficient of Variation 12.7 % Immature Granulocyte % (Auto) 0.1 % Immature Granulocyte # (Auto) 0.02 K/uL Platelet Estimate DECREASED Red Blood Cell Morphology Unremarkable Prothrombin Time 10.7 SECONDS Prothromb Time International Ratio 1.0 Activated Partial Thromboplast Time 25.4 SECONDS Partial Thromboplastin Ratio 1.0 Sodium Level 137 mmol/L Potassium Level 4.2 mmol/L Chloride Level 104 mmol/L Carbon Dioxide Level 24 mmol/L Anion Gap 9.0 mmol/L Blood Urea Nitrogen 21 mg/dl Creatinine 1.20 mg/dl Est Creatinine Clear Calc Drug Dose 68.7 ml/min Estimated GFR () 73.6 Estimated GFR (Non- 63.5 BUN/Creatinine Ratio 17.3 Random Glucose 167 mg/dl Calcium Level 8.7 mg/dl Total Bilirubin 0.8 mg/dl Aspartate Amino Transf (AST/SGOT) 29 U/L Alanine Aminotransferase (ALT/SGPT) 36 U/L Alkaline Phosphatase 97 U/L Total Protein 7.2 gm/dl Albumin 3.3 gm/dl Globulin 3.9 gm/dl Albumin/Globulin Ratio 0.8 Lyme Disease IgG Antibody POS Lyme Disease IgM Antibody NEG Bedside Lactic Acid Venous 1.21 mmol/L Synovial Fluid Source RIGHT KNEE ASPIRATE Synovial Fluid Color YELLOW Synovial Fluid Appearance TURBID Synovial Fluid WBC 47808 /uL Synovial Fluid RBC 3000 /uL Synovial Fluid Polynuclear WBCs % 94.3 % Synovial Fluid Mononuclear WBCs % 5.7 % Date/Time Source Procedure Growth Status 09/04/16 23:38 Blood Blood Culture Pending Received 09/04/16 23:30 Blood Blood Culture Pending Received 09/05/16 16:15 Joint Fluid/Space (Synovial) Knee Right Gram Stain Pending Received 09/05/16 16:15 Joint Fluid/Space (Synovial) Knee Right Bacterial Culture Pending Received Assessment & Plan Right knee swollen, tenderness an warm Possible related to cellulitis vs septic joint vs gout CT done showed Large joint effusion. Popliteal cyst which appears to extend cephalad at the posterior soft tissues of the thigh measuring 18 x 33 x 23 mm. ID consulted recommended to continue clinda and azactam. Dapto changed to IV vanco Knee aspiration done today by ortho Dr. York that removed about 65-80 mL that looks more of inflammatory fluid, there was no pus. Waiting for cultures, Gram stain, culture, cell count and synovial fluid analysis. will start pt on treatment for gout with indomethacin will check for ESR, CRP and uric acid level Continue pain management HYPERTENSION Continue Losartan PRN Clonidine Stable HYPOTHYROIDISM continue usual Lthyroxine Stable CHRONIC THROMBOCYTOPENIA stable DVT px SCDs CODE STATUS FULL CODE DISPOSITION Consultants: Ortho ID Current Inpatient Medications: Current Inpatient Medications Medications (Trade) Dose Ordered Sig/Jasmyne Route Start Time Stop Time Status Last Admin Dose Admin Ioversol (Optiray 320) 100 ml UD PRN IV 09/05/16 01:15 09/09/16 01:14 Acetaminophen (Tylenol Tab) 650 mg Q4H PRN PO 09/05/16 05:00 10/05/16 04:59 Ondansetron HCl 4 mg 4 mg Q6H PRN IV 09/05/16 05:00 10/05/16 04:59 Sodium Chloride (Nss 1000ml) 1,000 ml @ 150 mls/hr Q6H40M IV 09/05/16 06:00 10/05/16 05:59 09/05/16 13:41 150 MLS/HR Tramadol HCl (Ultram Tab) 50 mg Q6H PRN PO 09/05/16 05:00 10/05/16 04:59 09/05/16 13:38 50 MG Oxycodone/ Acetaminophen (Percocet 5-325MG Tab) 1 tab Q6H PRN PO 09/05/16 05:00 09/19/16 04:59 Levothyroxine Sodium (Synthroid Tab) 137 mcg DAILYBB PO 09/05/16 06:00 10/05/16 05:59 09/05/16 06:18 137 MCG Losartan Potassium (coZAAR TAB) 50 mg DAILY PO 09/05/16 09:00 10/05/16 08:59 09/05/16 09:23 50 MG Multivitamins/ Minerals (Multivitamin W/ Minerals Tab) 1 tab DAILY PO 09/05/16 09:00 10/05/16 08:59 09/05/16 09:23 1 TAB Clonidine HCl (Catapres Tab) 0.1 mg Q6H PRN PO 09/05/16 05:00 10/05/16 04:59 Aztreonam (Consult) 1 ea UD PRN N/A 09/05/16 06:15 10/05/16 06:14 Clindamycin Phosphate 1 ea 1 ea UD PRN N/A 09/05/16 06:15 10/05/16 06:14 Aztreonam 2000 mg/ Dextrose 110 ml @ 110 mls/hr Q8H IV 09/05/16 16:00 09/15/16 15:59 09/05/16 15:38 110 MLS/HR Clindamycin Phosphate 900 mg/ Dextrose 106 ml @ 106 mls/hr Q8H IV 09/05/16 16:00 09/15/16 15:59 09/05/16 15:40 106 MLS/HR Vancomycin HCl/ Sodium Chloride (Vancomycin Inj/ Nss 500ml) 535 ml @ 200 mls/hr TODAY@0400 IV 09/06/16 04:00 09/06/16 06:41 Vancomycin HCl 1 ea 1 ea UD PRN N/A 09/05/16 17:00 10/05/16 16:59 Vancomycin HCl/ Sodium Chloride (Vancomycin Inj/ Nss 250ml) 277 ml @ 125 mls/hr Q14H IV 09/06/16 16:00 09/14/16 15:59
--- NOTE | 2016-09-05 19:08 | Pharmacy Progress Note ---
Pharmacy Antibiotic Consult Date of Service: Sep 05, 2016. Pharmacy Dosing Scope Pharmacy is consulted to initiate vancomycin IV dosing therapy, order appropriate labs and adjust drug dose/frequency. Subjective The patient is a 65 year old male admitted on Sep 05, 2016 at 04:48 Objective Height (Feet): 5 Height (Inches): 8.00 Weight (Kilograms): 88.600 Lab Results (24hrs): Laboratory Tests Test 09/04/16 23:30 BUN/Creatinine Ratio 17.3 Blood Urea Nitrogen 21 mg/dl Creatinine 1.20 mg/dl White Blood Count 14.08 K/uL Red Blood Count 4.24 M/uL Hemoglobin 12.6 g/dL Hematocrit 36.7 % Mean Corpuscular Volume 86.6 fL Mean Corpuscular Hemoglobin 29.7 pg Mean Corpuscular Hemoglobin Concent 34.3 g/dl Platelet Count 85 K/uL Mean Platelet Volume 10.9 fL Neutrophils (%) (Auto) 86.4 % Lymphocytes (%) (Auto) 6.1 % Monocytes (%) (Auto) 7.2 % Eosinophils (%) (Auto) 0.1 % Basophils (%) (Auto) 0.1 % Neutrophils # (Auto) 12.16 K/uL Lymphocytes # (Auto) 0.86 K/uL Monocytes # (Auto) 1.01 K/uL Eosinophils # (Auto) 0.01 K/uL Basophils # (Auto) 0.02 K/uL Micro Results: Item Value Date Time Blood Culture Received 09/04/16 2330 Blood Pending Blood Culture Received 09/04/16 2338 Blood Pending Gram Stain Received 09/05/16 1615 Joint Fluid/Space (Synovial) Knee Right Pending Item Value Date Time Lyme Disease IgM Antibody NEG 09/04/16 2330 Lyme Disease IgG Antibody POS H 09/04/16 2330 Synovial Fluid Source RIGHT KNEE ASPIRATE 09/05/16 1615 Synovial Fluid Color YELLOW 09/05/16 1615 Synovial Fluid WBC 16387 /uL H 09/05/16 1615 Synovial Fluid Appearance TURBID 09/05/16 1615 Synovial Fluid RBC 3000 /uL 09/05/16 1615 Synovial Fluid Polynuclear WBCs % 94.3 % 09/05/16 1615 Synovial Fluid Mononuclear WBCs % 5.7 % 09/05/16 1615 Recent Pertinent Medications Item Value Date Time Aztreonam 2000 mg/ 110 ml @ 110 mls/hr 09/05/16 1600 Dextrose Q8H/IV CONTINUES 09/05/16 1538 Aztreonam 2000 mg/ 110 ml @ 110 mls/hr 09/05/16 0700 Dextrose TODAY@0700 ONCE/IV ONE TIME DOSE 09/05/16 0720 Ceftriaxone Sodium 1 gm 09/04/16 2259 (Rocephin Inj) NOW STAT/IV ONE TIME DOSE IN ED 09/04/16 2349 Clindamycin 106 ml @ 106 mls/hr 09/05/16 1600 Phosphate 900 mg/ Q8H/IV 09/05/16 1540 Dextrose CONTINUES Clindamycin 106 ml @ 106 mls/hr 09/05/16 0700 Phosphate 900 mg/ TODAY@0700/IV 09/05/16 0720 Dextrose ONE TIME DOSE Daptomycin 500 mg/ 60 ml @ 120 mls/hr 09/05/16 0615 Sodium Chloride TODAY@0615/IV ONE TIME DOSE 09/05/16 0642 Daptomycin 525 mg/ 60.5 ml @ 120 mls/hr 09/06/16 0600 Sodium Chloride Q24H/IV DISCONTINUED Doxycycline 100 mg 09/05/16 0115 Hyclate ONE ONCE/PO 09/05/16 0110 (Vibramycin Cap) ONE TIME DOSE Assessment & Plan Assessment: * 65 y/o male with possible cellulitis vs septic joint vs gout * CT done showed Large joint effusion. Popliteal cyst which appears to extend cephalad at the posterior soft tissues of the thigh measuring 18 x 33 x 23 mm. * ID consulted recommended to continue clindamycin and Azactam. Daptomycin changed to IV vancomycin * Knee aspiration done today by ortho Dr. York that removed about 65-80 mL that looks more of inflammatory fluid, there was no pus. * Waiting for cultures, Gram stain, culture, cell count and synovial fluid analysis. Plan: 1.) Begin vancomycin * start ~24 hours after daptomycin dose 2/2 decreasing overlapping of therapy * Loading dose: 1750 mg IV X 1 dose * Maintenance dose: 1350 mg IV q14 hours * Estimated kinetics: T1/2~ 11 hours, Haroldo~ 0.06hours-1, Vd ~0.7L/kg * Goal trough 15-20mcg/mL if septic joint * may have success with lower trough if only cellulitis * Trough level prior to 10:00 dose on 09/08/16 2.) Continue aztreonam and clindamycin * Aztreonam 2000mg IV q8 hours * no dose adj needed * gram negative coverage for patient with PCN allergy * Clindamycin 900mg IV q8 hours * no dose adj needed * used for antitoxin effect Pharmacy will continue to follow and will adjust dose/frequency as necessary. Thank you
[2016-09-05] MEDS: INDOMETHACIN 25 MG CAP PO SCH (20:32)
[2016-09-05 23:21] VITALS: BP 130/79; PULSE 69; TEMP 36.7; O2SAT 96
[2016-09-06] VITALS (7 sets, daily range): BP systolic 126–152; BP diastolic 64–80; PULSE 66–75; TEMP 36.4–36.9; O2SAT 96–99
[2016-09-06] MEDS: SODIUM CHLORIDE 0.9% 1000ML 1,000 ML IV SCH ×4 (01:48→22:23)
[2016-09-06] MEDS ORDERED: VANCOMYCIN INJ 1,750 MG in SODIUM CHLORIDE 0.9% 500ML 500 ML IV SCH (04:00)
[2016-09-06] MEDS: LEVOTHYROXINE 137 MCG TAB PO SCH (05:45)
[2016-09-06] MEDS ORDERED: DAPTOmycin IV 525 MG in SODIUM CHLORIDE 0.9% 50ML 50 ML IV SCH (06:00)
[2016-09-06 07:36] LABS: HEMATOCRIT 33.5 % (42-52); MEAN CELL VOLUME 87.5 fL (80-100); MEAN CORPUSCULAR HGB CONC 34.3 g/dl (32-36); RED BLOOD COUNT 3.83 M/uL (4.7-6.1); WHITE BLOOD COUNT 9.96 K/uL (4.8-10.8)
[2016-09-06 07:38] LABS: MEAN PLATELET VOLUME 11.7 fL (7.4-10.4); PLATELET COUNT 78 K/uL (130-400)
[2016-09-06 08:05] LABS: BASO % 0.1 %; BASO ABS # 0.01 K/uL (0-0.2); COMPLETE YES; IG% 0.2 %; LARGE PLATELETS 1+; LYMPH % 10.5 %; LYMPH ABS # 1.05 K/uL (1.2-3.4); MONO % 6.7 %; NEUT % 81.5 %; PLT ESTIMATE DECREASED
[2016-09-06 08:08] LABS: BUN/CREATININE RATIO 20.5 (10-20); CALCIUM 8.2 mg/dl (8.5-10.1); CREATININE 0.91 mg/dl (0.60-1.40); URIC ACID 3.7 mg/dl (2.6-7.2)
[2016-09-06 08:13] LABS: C-REACTIVE PROTEIN 21.9 mg/dl (0-0.29)
[2016-09-06] MEDS: AZTREONAM 2000 MG in DEXTROSE 5% 100 ML IV SCH ×2 (08:33→15:32)
[2016-09-06] MEDS: CLINDAMYCIN IV 900 MG in DEXTROSE 5% ADD-VANTAGE 100ML 100 ML IV SCH ×2 (08:33→15:32)
[2016-09-06] MEDS: INDOMETHACIN 25 MG CAP PO SCH ×2 (08:34→13:43)
[2016-09-06] MEDS: LOSARTAN POTASSIUM 50 MG TAB PO SCH (08:35)
[2016-09-06] MEDS: CEROVITE ADV FORMULA TAB PO SCH (08:35)
--- NOTE | 2016-09-06 10:26 | Progress Note ---
Subjective Date of Service: Sep 06, 2016. Subjective Pt evaluation today including: conversation w/ patient, physical exam, chart review, lab review pt seen in follow up, s/p aspiration of right knee yesterday, >5000wbc, no crystals seen. culture pending gram stain negative, blood cultures negative. still with pain and swelling, states knee still feels warm to touch. no erythema. has some eczema over knee, states unchanged for years, no recent bleeding or drainage from the area. denies any trauma to the knee. no f/c overnight. Continues on multiple abx, tolerating well. wbc improved. pt npo for possible OR washout. All remaining ros reviewed and are negative, except as noted. Problem List Medical Problems: (1) Cellulitis of right leg Status: Acute Objective Vital Signs Date Time Temp Pulse Resp B/P Pulse Ox O2 Delivery O2 Flow Rate FiO2 09/06/16 06:52 36.7 75 18 133/64 98 Room Air 09/05/16 23:21 36.7 69 18 130/79 96 Room Air 09/05/16 19:15 Room Air 09/05/16 15:30 Room Air 09/05/16 15:05 36.8 77 16 132/71 97 Room Air Physical Exam General Appearance: WD/WN, no apparent distress Eyes: EOMI Neck: supple Respiratory/Chest: lungs clear, normal breath sounds, no respiratory distress Cardiovascular: no edema Abdomen: soft Extremities: no pedal edema Neurologic/Psychiatric: alert, + abnormal cerebellar tests Skin: normal color Comments: right knee with edema and warmth, no erythema, no open areas, tender to touch Laboratory Results Item Value Date Time Gram Stain - Final Resulted 09/05/16 1615 Joint Fluid/Space (Synovial) Knee Right Blood Culture - Preliminary Resulted 09/04/16 2338 Blood NO GROWTH TO DATE. Blood Culture - Preliminary Resulted 09/04/16 2330 Blood NO GROWTH TO DATE. Synovial Fluid WBC 57635 /uL H 09/05/16 1615 Last 24 Hours Test 09/05/16 16:15 09/06/16 06:55 Synovial Fluid Source RIGHT KNEE ASPIRATE Synovial Fluid Color YELLOW Synovial Fluid Appearance TURBID Synovial Fluid WBC 75073 /uL Synovial Fluid RBC 3000 /uL Synovial Fluid Polynuclear WBCs % 94.3 % Synovial Fluid Mononuclear WBCs % 5.7 % Synovial Fluid Crystals White Blood Count 9.96 K/uL Red Blood Count 3.83 M/uL Hemoglobin 11.5 g/dL Hematocrit 33.5 % Mean Corpuscular Volume 87.5 fL Mean Corpuscular Hemoglobin 30.0 pg Mean Corpuscular Hemoglobin Concent 34.3 g/dl Platelet Count 78 K/uL Mean Platelet Volume 11.7 fL Neutrophils (%) (Auto) 81.5 % Lymphocytes (%) (Auto) 10.5 % Monocytes (%) (Auto) 6.7 % Eosinophils (%) (Auto) 1.0 % Basophils (%) (Auto) 0.1 % Neutrophils # (Auto) 8.11 K/uL Lymphocytes # (Auto) 1.05 K/uL Monocytes # (Auto) 0.67 K/uL Eosinophils # (Auto) 0.10 K/uL Basophils # (Auto) 0.01 K/uL RDW Standard Deviation 41.8 fL RDW Coefficient of Variation 12.9 % Immature Granulocyte % (Auto) 0.2 % Immature Granulocyte # (Auto) 0.02 K/uL Platelet Estimate DECREASED Large Platelets 1+ Erythrocyte Sedimentation Rate 40 mm/hr Sodium Level 138 mmol/L Potassium Level 4.0 mmol/L Chloride Level 106 mmol/L Carbon Dioxide Level 24 mmol/L Anion Gap 8.0 mmol/L Blood Urea Nitrogen 19 mg/dl Creatinine 0.91 mg/dl Est Creatinine Clear Calc Drug Dose 88.7 ml/min Estimated GFR () 102.9 Estimated GFR (Non- 88.8 BUN/Creatinine Ratio 20.5 Random Glucose 117 mg/dl Uric Acid 3.7 mg/dl Calcium Level 8.2 mg/dl C-Reactive Protein 21.90 mg/dl Assessment and Plan (1) Cellulitis of right leg Status: Acute Assessment & Plan: concerned for septic arthritis, no crystals seen. follow cultures, continue broad spectrum abx for now. will follow cultures and adjust abx as needed. await decision regarding OR.
--- NOTE | 2016-09-06 12:21 | Orthopedic Progress Note ---
Orthopedic Progress Note Date of Service Sep 06, 2016. Subjective Additional Notes: STIL W DISCOMFORT Objective KNEE SWOLLEN WARM Date Time Temp Pulse Resp B/P Pulse Ox O2 Delivery O2 Flow Rate FiO2 09/06/16 08:30 Room Air 09/06/16 06:52 36.7 75 18 133/64 98 Room Air 09/05/16 23:21 36.7 69 18 130/79 96 Room Air 09/05/16 19:15 Room Air 09/05/16 15:30 Room Air 09/05/16 15:05 36.8 77 16 132/71 97 Room Air Laboratory Results 24 Hours: Test 09/06/16 06:55 White Blood Count 9.96 K/uL Red Blood Count 3.83 M/uL Hemoglobin 11.5 g/dL Hematocrit 33.5 % Mean Corpuscular Volume 87.5 fL Mean Corpuscular Hemoglobin 30.0 pg Mean Corpuscular Hemoglobin Concent 34.3 g/dl Platelet Count 78 K/uL Mean Platelet Volume 11.7 fL Neutrophils (%) (Auto) 81.5 % Lymphocytes (%) (Auto) 10.5 % Monocytes (%) (Auto) 6.7 % Eosinophils (%) (Auto) 1.0 % Basophils (%) (Auto) 0.1 % Neutrophils # (Auto) 8.11 K/uL Lymphocytes # (Auto) 1.05 K/uL Monocytes # (Auto) 0.67 K/uL Eosinophils # (Auto) 0.10 K/uL Basophils # (Auto) 0.01 K/uL Assessment & Plan Assessment: PROBABLE INFECTION R KNEE NO CRYSTALS IN FLUID 55K WBC Plan: PT WILL NEED I AND D MOST LIKELY ARTHROSCOPIC DISCUSSED W PT CONSENT OBTAINED FOR OR TODAY (1) Cellulitis of right leg Acute
[2016-09-06] MEDS ORDERED: MIDAZOLAM HCL 1 MG/ML 2ML VIAL ONE (16:17)
[2016-09-06] MEDS ORDERED: FENTANYL CITRATE INJ 50 MCG/1 ML 2 ML VIAL ONE (16:17)
[2016-09-06] MEDS ORDERED: CEFAZOLIN IV 2,000 MG/60 ML D5W IV ONE (17:48)
[2016-09-06] MEDS ORDERED: NURSING VERBAL MED ORDER ONE (18:00)
--- NOTE | 2016-09-06 18:04 | History & Physical Bridge Note ---
H&P Re-Evaluation Bridge Note: I have examined the patient, reviewed the History & Physical and in the interval since the performance of the History & Physical I have noted the following changes of clinical significance: + Knee aspirate for 55k WBC
[2016-09-06] MEDS ORDERED: PROPOFOL IV EMULSION 10 MG/ML 20 ML VIAL IV ONE (18:17)
[2016-09-06] MEDS ORDERED: LIDOCAINE HCL 2% 2 ML VIAL (20MG/ML) ONE (18:17)
[2016-09-06] MEDS ORDERED: ONDANSETRON INJ 2 MG/ML 2 ML VIAL ONE (18:17)
[2016-09-06] MEDS ORDERED: BACITRACIN 50,000 UNITS IR ONE (18:38)
[2016-09-06] MEDS ORDERED: KETOROLAC TROMETHAMINE 30 MG/ML VIAL ONE (18:41)
[2016-09-06] MEDS ORDERED: BUPIVACAINE/EPINEPHRINE 0.5% MPF 1:200,000 30 ML VIAL INJ ONE (18:51)
--- NOTE | 2016-09-06 19:12 | [facility] Post Operative Brief Note ---
Immediate Operative Summary Operative Date Sep 06, 2016. Pre-Operative Diagnosis Right Knee Septic Arthritis Post-Operative Diagnosis Right Knee Septic Arthritis, Lateral Meniscus Tear, Synovitis Procedure(s) Performed Right knee arthroscopic irrigation and debridement, partial lateral menisectomy, major synovectomy Surgeon Dr. Wesley Legal Paraprofessional Surgeon(s) None Estimated Blood Loss 20ml Findings See dict Specimens None Drains HV x 1 Anesthesia GLMA w/ local Complication(s) None Disposition Recovery Room / PACU
[2016-09-06] MEDS ORDERED: HYDROmorphone INJ 1 MG/ML SYR IV PRN (19:15)
[2016-09-06] MEDS ORDERED: FLUMAZENIL 0.1 MG/1 ML 10 ML VIAL IV PRN (19:15)
[2016-09-06] MEDS ORDERED: EpHEDrine SULFATE INJ 50 MG/ML AMP IV PRN (19:15)
[2016-09-06] MEDS ORDERED: ATROPINE SULFATE 0.1 MG/ML 5ML SYR IV PRN (19:15)
[2016-09-06] MEDS ORDERED: ONDANSETRON INJ 2 MG/ML 2 ML VIAL IV PRN (19:15)
[2016-09-06] MEDS ORDERED: NALOXONE HCL 0.4 MG/1 ML VIAL/CARP IV PRN (19:15)
[2016-09-06] MEDS ORDERED: PROMETHAZINE HCL INJ 12.5 MG in SODIUM CHLORIDE 0.9% 50ML 50 ML IV PRN (19:15)
[2016-09-06] MEDS ORDERED: LABETALOL HCL IV 5 MG/ML 20ML IV PRN (19:15)
--- NOTE | 2016-09-06 19:35 | Anesthesiology Progress Note ---
Anesthesia Post Op Note Date & Time Sep 06, 2016 at 19:35 Vital Signs Pain Intensity: 0 Vital Signs Past 12 Hours Date Time Temp Pulse Resp B/P Pulse Ox O2 Delivery O2 Flow Rate FiO2 09/06/16 19:20 59 14 135/72 97 Nasal Cannula 3 09/06/16 19:19 59 13 135/72 97 09/06/16 19:19 58 13 09/06/16 19:14 61 16 122/67 97 09/06/16 19:14 61 16 09/06/16 19:10 58 16 117/67 99 Mask 10 09/06/16 19:09 68 16 117/67 98 09/06/16 19:09 59 16 09/06/16 19:04 58 13 09/06/16 19:04 57 13 116/74 97 09/06/16 19:04 36.8 57 16 122/67 98 Mask 10 09/06/16 15:17 36.6 69 18 147/76 97 Room Air 09/06/16 15:15 Room Air 09/06/16 08:30 Room Air Notes Mental Status: alert / awake / arousable, participated in evaluation Pt Amnestic to Procedure: Yes Nausea / Vomiting: adequately controlled Pain: adequately controlled Airway Patency, RR, SpO2: stable & adequate BP & HR: stable & adequate Hydration State: stable & adequate Anesthetic Complications: no major complications apparent
--- NOTE | 2016-09-06 19:47 | Progress Note ---
Internal Med Progress Note Date of Service: Sep 06, 2016. Provider Documentation: SUBJECTIVE: was taken OR today for I&D of his rt knee no fever or chills OBJECTIVE: Vital Signs-as noted below Exam: General-no sign of distress Eyes-sclera non icteric , PERRLA/EOMI ENT-NAD Neck-TRACHEA midline , no thyromegaly Lungs-CTA , no wheeze or rales Heart-regular S1/S2 Abdomen-sot, non tender Extremities-no rash or deformity Neuro-no focal neurological deficit Lab data as noted below. ASSESSMENT & PLAN: INFECTED Right knee CT done showed Large joint effusion. Popliteal cyst which appears to extend cephalad at the posterior soft tissues of the thigh measuring 18 x 33 x 23 mm. ID consulted recommended to continue clinda and Azactam. Dapto changed to IV vanco Knee aspiration done today by ortho Dr. York that removed about 65-80 mL that looks more of inflammatory fluid, there was no pus. synovial fluid gram stain : many WBC no organism culture -no growth blood culture X2 no growth synovial fluid analysis shows no Crystals, WBC > 55 K suggestive of infected /septic joint appreciate Ortho eval pt is taken to OR today for arthroscopic I&D HYPERTENSION Continue Losartan PRN Clonidine Stable HYPOTHYROIDISM continue usual L thyroxine Stable CHRONIC THROMBOCYTOPENIA stable DVT px SCDs CODE STATUS FULL CODE DVT PROPHYLAXIS scd and teds added sub q heparin -high risk for DVT post knee procedure DISPOSITION possible discharge home when medically stable Vital Signs: Date Time Temp Pulse Resp B/P Pulse Ox O2 Delivery O2 Flow Rate FiO2 09/07/16 15:16 36.9 74 18 118/68 96 Room Air 09/07/16 11:35 36.8 66 18 122/70 97 Room Air 09/07/16 07:55 Room Air 09/07/16 07:05 36.8 68 16 132/79 98 Room Air 09/07/16 03:26 36.8 70 16 125/62 97 Room Air 09/06/16 23:30 Room Air 09/06/16 22:58 36.9 69 16 127/72 97 Room Air 09/06/16 21:49 36.4 72 18 152/80 98 Nasal Cannula 2.0 09/06/16 21:21 36.6 69 18 126/75 98 Nasal Cannula 2.0 09/06/16 20:29 36.4 66 18 135/71 99 Nasal Cannula 2.0 09/06/16 19:50 96 Nasal Cannula 2.0 09/06/16 19:40 36.6 58 16 129/69 97 Nasal Cannula 2 09/06/16 19:30 36.6 17 141/74 97 Nasal Cannula 2 09/06/16 19:20 59 14 135/72 97 Nasal Cannula 3 09/06/16 19:19 59 13 135/72 97 09/06/16 19:19 58 13 09/06/16 19:14 61 16 122/67 97 09/06/16 19:14 61 16 09/06/16 19:10 58 16 117/67 99 Mask 10 09/06/16 19:09 68 16 117/67 98 09/06/16 19:09 59 16 09/06/16 19:04 58 13 09/06/16 19:04 57 13 116/74 97 09/06/16 19:04 36.8 57 16 122/67 98 Mask 10 Lab Results: Results Past 24 Hours Test 09/07/16 06:20 Range/Units White Blood Count 8.11 4.8-10.8 K/uL Red Blood Count 3.64 4.7-6.1 M/uL Hemoglobin 10.8 14.0-18.0 g/dL Hematocrit 32.1 42-52 % Mean Corpuscular Volume 88.2 80-100 fL Mean Corpuscular Hemoglobin 29.7 25-34 pg Mean Corpuscular Hemoglobin Concent 33.6 32-36 g/dl Platelet Count 101 130-400 K/uL Mean Platelet Volume 11.8 7.4-10.4 fL Neutrophils (%) (Auto) 77.8 % Lymphocytes (%) (Auto) 13.7 % Monocytes (%) (Auto) 7.4 % Eosinophils (%) (Auto) 0.9 % Basophils (%) (Auto) 0.1 % Neutrophils # (Auto) 6.31 1.4-6.5 K/uL Lymphocytes # (Auto) 1.11 1.2-3.4 K/uL Monocytes # (Auto) 0.60 0.11-0.59 K/uL Eosinophils # (Auto) 0.07 0-0.5 K/uL Basophils # (Auto) 0.01 0-0.2 K/uL RDW Standard Deviation 42.4 36.4-46.3 fL RDW Coefficient of Variation 13.0 11.5-14.5 % Immature Granulocyte % (Auto) 0.1 % Immature Granulocyte # (Auto) 0.01 0.00-0.02 K/uL Sodium Level 141 136-145 mmol/L Potassium Level 4.0 3.5-5.1 mmol/L Chloride Level 107 98-107 mmol/L Carbon Dioxide Level 26 21-32 mmol/L Anion Gap 8.0 3-11 mmol/L Blood Urea Nitrogen 16 7-18 mg/dl Creatinine 0.96 0.60-1.40 mg/dl Est Creatinine Clear Calc Drug Dose 84.1 ml/min Estimated GFR () 96.4 Estimated GFR (Non- 83.2 BUN/Creatinine Ratio 16.4 10-20 Random Glucose 93 70-99 mg/dl Calcium Level 8.2 8.5-10.1 mg/dl
[2016-09-06] MEDS: VANCOMYCIN INJ 1,350 MG in SODIUM CHLORIDE 0.9% 250ML 250 ML IV SCH (20:04)
--- NOTE | 2016-09-06 21:15 | OPERATIVE REPORT ---
DATE OF OPERATION: 09/06/2016 PREOPERATIVE DIAGNOSIS: Right knee septic arthritis. POSTOPERATIVE DIAGNOSES: 1. Right knee septic arthritis. 2. Lateral meniscus tear, posterior horn. 3. Synovitis major. PROCEDURES: 1. Right knee arthroscopic irrigation and debridement. 2. Partial lateral meniscectomy. 3. Major synovectomy. SURGEON: Dr. Wesley. WEBMETHODS ARCHITECT: None. ANESTHESIA: General LMA with local. SPECIMENS: None. Previous aspirate had been processed. DRAINS: Hemovac x1. COMPLICATIONS: None. BLOOD LOSS: 20 mL. PERTINENT HISTORY: This is a 65-year-old gentleman with onset of right knee pain and swelling. It had been progressive over 3-4 days, he presented to the Emergency Department and was then eventually admitted to the hospital. Orthopedics was consulted, my partner Dr. York aspirated the knee. The patient was noted to have 55,000 white cells within the synovial fluid, presents for Lyme and other potential causes, none was revealed. The patient is felt to have a culture negative septic arthritis. The patient was then scheduled for arthroscopic irrigation and debridement. All potential risks, benefits, complications, alternatives, rehab, potential for incomplete relief of symptoms, need for further surgery, DVT, PE, , persistent pain, swelling, scarring, weakness, neurovascular injury, wound complications or further sepsis was discussed with the patient. The patient decided to proceed with the procedure as indicated. DESCRIPTION OF PROCEDURE: The patient was taken to the operative suite, placed supine on the operating room table. After review of the consent and identification of proper operative site, the patient was anesthetized, LMA was placed. Tourniquet was placed high on the right thigh over cast padding. Right lower extremity was then sterilely prepped and draped in usual fashion, elevated and tourniquet inflated to 350 mmHg. There was no exsanguination performed due to the infection. Next, an 11 blade scalpel was used to make an incision inferolateral aspect the following placement of blunt trocar and sleeve, camera and inflow. Next, a superior medial portal was established for outflow, a 11-blade scalpel incision followed up with placement of blunt trocar, sleeve and outflow. Next, sequential diagnostic arthroscopy was commenced in the suprapatellar pouch noting thick murky fluid within the suprapatellar pouch. Did not have the consistency of typical infectious exudate; however, certainly more dense than typical synovial fluid. The suprapatellar pouch was inspected and noted to have significant synovitis both centrally, medially and laterally extending into the medial and lateral gutters. Next, the medial gutter was inspected. No loose bodies, significant synovitis in the medial gutter. Next, the medial compartment was inspected, 18 gauge spinal needle was inserted for localization for the medial portal followed with 11-blade scalpel incision followed by placement 4.5 mm incisor sucker shaver. The compartment was lavaged and a synovectomy was performed in the medial compartment. Next, the blunt tipped probe was inserted, the meniscus was probed and noted to be stable and intact. There was noted to be some traces of grade 2 chondromalacia on the medial femoral condyle; however, there was nothing operable. There is some slight softening and fissuring. No significant fibrillation. Next, the synovectomy was then performed of the anterior compartment to improve visualization and also to remove hypertrophic synovium. Next, the ACL and PCL were probed with small blunt tipped probe and noted to be stable and intact. Next, the lateral compartment was inspected and noted to have synovitis. Synovectomy was performed with the sucker shaver and the posterior horn of the lateral meniscus noted to have tear in the white-white zone extending into the red-white zone. At this point, the sucker shaver was used to perform a partial lateral meniscectomy. After this was completed, the chondral surfaces were inspected and noted to be essentially unremarkable with the exception of some minor grade 1 chondromalacia. Next, the scope was directed into the lateral gutter and synovitis was noted. No loose bodies. Synovectomy was performed in the lateral gutter and then continuing, the scope was then directed into the suprapatellar pouch. Synovectomy was performed and then attention was then directed back toward the medial gutter and synovectomy was performed in the medial gutter with the sucker shaver. After this was completed, final pass through the compartments of the joint was then performed to ensure no loose bodies. Next lavage was completed with 9 liters total with bacitracin laden lavage solution. Next, a 10 Telugu Hemovac drain was passed through the superior medial portal and the cannula was then removed. Next, the portal sites were then closed using 3-0 nylon suture due to the thickness of the patient's skin. Of note, there is noted to be small psoriatic plaques in the infrapatellar region of the right knee as well as was noted prior to surgery in the infrapatellar region of the left knee. After the portal sites were closed, approximately 30 mL of 0.25% Marcaine with epinephrine was injected into the joint for postop pain and bleeding control. Next, a sterile compressive dressing was applied, overwrapped with ABD pads x2 and a double length Dwaine wrap. The tourniquet was released. The patient was awakened and taken to recovery in stable condition. I attest to the content of the Intraoperative Record and any orders documented therein. Any exceptio ns are noted below.
[2016-09-07 03:26] VITALS: BP 125/62; PULSE 70; TEMP 36.8; O2SAT 97
[2016-09-07] MEDS: SODIUM CHLORIDE 0.9% 1000ML 1,000 ML IV SCH ×4 (04:56→18:05)
[2016-09-07] MEDS: LEVOTHYROXINE 137 MCG TAB PO SCH (06:36)
[2016-09-07] MEDS: VANCOMYCIN INJ 1,350 MG in SODIUM CHLORIDE 0.9% 250ML 250 ML IV SCH ×2 (06:37→20:27)
[2016-09-07 07:02] LABS: BASO % 0.1 %; BASO ABS # 0.01 K/uL (0-0.2); COMPLETE YES; EOS % 0.9 %; HEMATOCRIT 32.1 % (42-52); IG% 0.1 %; LYMPH % 13.7 %; LYMPH ABS # 1.11 K/uL (1.2-3.4); MEAN CELL VOLUME 88.2 fL (80-100); MEAN CORPUSCULAR HEMOGLOBIN 29.7 pg (25-34); MEAN CORPUSCULAR HGB CONC 33.6 g/dl (32-36); MEAN PLATELET VOLUME 11.8 fL (7.4-10.4); MONO % 7.4 %; NEUT % 77.8 %; PLATELET COUNT 101 K/uL (130-400); RED BLOOD COUNT 3.64 M/uL (4.7-6.1); WHITE BLOOD COUNT 8.11 K/uL (4.8-10.8)
[2016-09-07 07:05] VITALS: BP 132/79; PULSE 68; TEMP 36.8; O2SAT 98
[2016-09-07 07:38] LABS: BUN/CREATININE RATIO 16.4 (10-20); CALCIUM 8.2 mg/dl (8.5-10.1); CREATININE 0.96 mg/dl (0.60-1.40)
--- NOTE | 2016-09-07 09:01 | Anesthesiology Progress Note ---
Anesthesia Post Op Note Date & Time Sep 07, 2016 at 09:01 Vital Signs Pain Intensity: 0.0 Vital Signs Past 12 Hours Date Time Temp Pulse Resp B/P Pulse Ox O2 Delivery O2 Flow Rate FiO2 09/07/16 07:05 36.8 68 16 132/79 98 Room Air 09/07/16 03:26 36.8 70 16 125/62 97 Room Air 09/06/16 23:30 Room Air 09/06/16 22:58 36.9 69 16 127/72 97 Room Air 09/06/16 21:49 36.4 72 18 152/80 98 Nasal Cannula 2.0 09/06/16 21:21 36.6 69 18 126/75 98 Nasal Cannula 2.0 Notes Mental Status: alert / awake / arousable, participated in evaluation Pt Amnestic to Procedure: Yes Nausea / Vomiting: adequately controlled Pain: adequately controlled Airway Patency, RR, SpO2: stable & adequate BP & HR: stable & adequate Hydration State: stable & adequate Anesthetic Complications: no major complications apparent
--- NOTE | 2016-09-07 10:02 | Orthopedic Progress Note ---
Orthopedic Progress Note Date of Service Sep 07, 2016. Subjective Reports: complaints (Knee pain improved. Continued swelling and tenderness medial thigh. No F/C. ), feeling well, Denies: SOB, calf pain, chest pain, light headedness, nausea / vomiting Objective calves soft nontender, N/V intact, capillary refill less than 2 sec., dressing C /D/I, A&O x3, toes mobile, hemovac drainage (25cc) Diminished effusion knee with slight increase ease of AROM/PROM. DP/PT 2/4 B LE. Date Time Temp Pulse Resp B/P Pulse Ox O2 Delivery O2 Flow Rate FiO2 09/07/16 07:05 36.8 68 16 132/79 98 Room Air 09/07/16 03:26 36.8 70 16 125/62 97 Room Air 09/06/16 23:30 Room Air 09/06/16 22:58 36.9 69 16 127/72 97 Room Air 09/06/16 21:49 36.4 72 18 152/80 98 Nasal Cannula 2.0 09/06/16 21:21 36.6 69 18 126/75 98 Nasal Cannula 2.0 09/06/16 20:29 36.4 66 18 135/71 99 Nasal Cannula 2.0 09/06/16 19:50 96 Nasal Cannula 2.0 09/06/16 19:40 36.6 58 16 129/69 97 Nasal Cannula 2 09/06/16 19:30 36.6 17 141/74 97 Nasal Cannula 2 09/06/16 19:20 59 14 135/72 97 Nasal Cannula 3 09/06/16 19:19 59 13 135/72 97 09/06/16 19:19 58 13 09/06/16 19:14 61 16 122/67 97 09/06/16 19:14 61 16 09/06/16 19:10 58 16 117/67 99 Mask 10 09/06/16 19:09 68 16 117/67 98 09/06/16 19:09 59 16 09/06/16 19:04 58 13 09/06/16 19:04 57 13 116/74 97 09/06/16 19:04 36.8 57 16 122/67 98 Mask 10 09/06/16 15:17 36.6 69 18 147/76 97 Room Air 09/06/16 15:15 Room Air Laboratory Results 24 Hours: Test 09/07/16 06:20 White Blood Count 8.11 K/uL Red Blood Count 3.64 M/uL Hemoglobin 10.8 g/dL Hematocrit 32.1 % Mean Corpuscular Volume 88.2 fL Mean Corpuscular Hemoglobin 29.7 pg Mean Corpuscular Hemoglobin Concent 33.6 g/dl Platelet Count 101 K/uL Mean Platelet Volume 11.8 fL Neutrophils (%) (Auto) 77.8 % Lymphocytes (%) (Auto) 13.7 % Monocytes (%) (Auto) 7.4 % Eosinophils (%) (Auto) 0.9 % Basophils (%) (Auto) 0.1 % Neutrophils # (Auto) 6.31 K/uL Lymphocytes # (Auto) 1.11 K/uL Monocytes # (Auto) 0.60 K/uL Eosinophils # (Auto) 0.07 K/uL Basophils # (Auto) 0.01 K/uL Assessment & Plan Assessment: Culture Negative septic arthritis right knee S/P Arthroscopic I and D right knee POD#1 Plan: Continue IV anbx Continue Hemovac drain NPO after MN for reassessment and possible repeat arthroscopic I and D with I and D adductor canal/ medial thigh tomorrow by Dr Bishop. (1) Cellulitis of right leg Acute
[2016-09-07] MEDS: AZTREONAM 2000 MG in DEXTROSE 5% 100 ML IV SCH ×5 (10:17→23:33)
[2016-09-07] MEDS: CEROVITE ADV FORMULA TAB PO SCH (10:17)
[2016-09-07] MEDS: LOSARTAN POTASSIUM 50 MG TAB PO SCH (10:17)
[2016-09-07] MEDS: CLINDAMYCIN IV 900 MG in DEXTROSE 5% ADD-VANTAGE 100ML 100 ML IV SCH ×5 (10:17→23:33)
--- NOTE | 2016-09-07 10:30 | Progress Note ---
Subjective Date of Service: Sep 07, 2016. Subjective s/p washout yesterday, for ? repeat OR in am. Initial cultures remain negative, blood cultures negative as well. Tolerating abx,remains on broad spectrum abx. Afebrile. wbc 8.1. No crystals noted on aspirate fluid. No overnight events. Problem List Medical Problems: (1) Cellulitis of right leg Status: Acute Objective Vital Signs Date Time Temp Pulse Resp B/P Pulse Ox O2 Delivery O2 Flow Rate FiO2 09/07/16 07:05 36.8 68 16 132/79 98 Room Air 09/07/16 03:26 36.8 70 16 125/62 97 Room Air 09/06/16 23:30 Room Air 09/06/16 22:58 36.9 69 16 127/72 97 Room Air 09/06/16 21:49 36.4 72 18 152/80 98 Nasal Cannula 2.0 09/06/16 21:21 36.6 69 18 126/75 98 Nasal Cannula 2.0 09/06/16 20:29 36.4 66 18 135/71 99 Nasal Cannula 2.0 09/06/16 19:50 96 Nasal Cannula 2.0 09/06/16 19:40 36.6 58 16 129/69 97 Nasal Cannula 2 09/06/16 19:30 36.6 17 141/74 97 Nasal Cannula 2 09/06/16 19:20 59 14 135/72 97 Nasal Cannula 3 09/06/16 19:19 59 13 135/72 97 09/06/16 19:19 58 13 09/06/16 19:14 61 16 122/67 97 09/06/16 19:14 61 16 09/06/16 19:10 58 16 117/67 99 Mask 10 09/06/16 19:09 68 16 117/67 98 09/06/16 19:09 59 16 09/06/16 19:04 58 13 09/06/16 19:04 57 13 116/74 97 09/06/16 19:04 36.8 57 16 122/67 98 Mask 10 09/06/16 15:17 36.6 69 18 147/76 97 Room Air 09/06/16 15:15 Room Air Laboratory Results Item Value Date Time Gram Stain - Final Resulted 09/05/16 1615 Joint Fluid/Space (Synovial) Knee Right Blood Culture - Preliminary Resulted 09/04/16 2338 Blood NO GROWTH TO DATE. Blood Culture - Preliminary Resulted 09/04/16 2330 Blood NO GROWTH TO DATE. Last 24 Hours Test 09/07/16 06:20 White Blood Count 8.11 K/uL Red Blood Count 3.64 M/uL Hemoglobin 10.8 g/dL Hematocrit 32.1 % Mean Corpuscular Volume 88.2 fL Mean Corpuscular Hemoglobin 29.7 pg Mean Corpuscular Hemoglobin Concent 33.6 g/dl Platelet Count 101 K/uL Mean Platelet Volume 11.8 fL Neutrophils (%) (Auto) 77.8 % Lymphocytes (%) (Auto) 13.7 % Monocytes (%) (Auto) 7.4 % Eosinophils (%) (Auto) 0.9 % Basophils (%) (Auto) 0.1 % Neutrophils # (Auto) 6.31 K/uL Lymphocytes # (Auto) 1.11 K/uL Monocytes # (Auto) 0.60 K/uL Eosinophils # (Auto) 0.07 K/uL Basophils # (Auto) 0.01 K/uL RDW Standard Deviation 42.4 fL RDW Coefficient of Variation 13.0 % Immature Granulocyte % (Auto) 0.1 % Immature Granulocyte # (Auto) 0.01 K/uL Sodium Level 141 mmol/L Potassium Level 4.0 mmol/L Chloride Level 107 mmol/L Carbon Dioxide Level 26 mmol/L Anion Gap 8.0 mmol/L Blood Urea Nitrogen 16 mg/dl Creatinine 0.96 mg/dl Est Creatinine Clear Calc Drug Dose 84.1 ml/min Estimated GFR () 96.4 Estimated GFR (Non- 83.2 BUN/Creatinine Ratio 16.4 Random Glucose 93 mg/dl Calcium Level 8.2 mg/dl Assessment and Plan (1) Cellulitis of right leg Status: Acute Assessment & Plan: continue abx, follow cultures, negative to date. For repeat OR in am, follow results, if any findings concerning for infection, please send for culture. If cultures remain negative, will likely suggest course of po abx but will await initial cultures and repeat OR findings.
[2016-09-07 11:35] VITALS: BP 122/70; PULSE 66; TEMP 36.8; O2SAT 97
[2016-09-07 15:16] VITALS: BP 118/68; PULSE 74; TEMP 36.9; O2SAT 96
--- NOTE | 2016-09-07 18:31 | Progress Note ---
Internal Med Progress Note Date of Service: Sep 07, 2016. Provider Documentation: SUBJECTIVE: having pain on rt inner and upper thigh area no fever or chills rt knee still remains swelled OBJECTIVE: Vital Signs-as noted below Exam: General-no sign of distress Eyes-sclera non icteric , PERRLA/EOMI ENT-NAD Neck-TRACHEA midline , no thyromegaly Lungs-CTA , no wheeze or rales Heart-regular S1/S2 Abdomen-sot, non tender Extremities-no rash or deformity ; rt knee bandage /drain present , + erythema on inner upper rt thigh Neuro-no focal neurological deficit Lab data as noted below. ASSESSMENT & PLAN: INFECTED Right knee CT done showed Large joint effusion. Popliteal cyst which appears to extend cephalad at the posterior soft tissues of the thigh measuring 18 x 33 x 23 mm. ID consulted on clindamycin and Azactam. Dapto changed to IV vanco Knee aspiration done by ortho Dr. York synovial fluid analysis shows no Crystals, WBC > 55 K suggestive of infected /septic joint appreciate Ortho eval pt is taken to OR today for arthroscopic I&D synovial fluid culture and gram stain 09/05/16 shows multiple WBC , no organism culture negative pt continues to have clinical sign of septic joint plan for OR tomorrow for further exploration of rt joint in AM HYPERTENSION Continue Losartan PRN Clonidine Stable HYPOTHYROIDISM continue usual L thyroxine Stable CHRONIC THROMBOCYTOPENIA stable DVT px SCDs CODE STATUS FULL CODE DVT PROPHYLAXIS scd and teds hold sub q heparin - knee procedure DISPOSITION possible discharge home when medically stable pt may need skilled nursing Abx -depending on culture -will be determined IV vs PO will need continued PT/rehab of Rt knee Social service consulted for DC planning updated at bedside Vital Signs: Date Time Temp Pulse Resp B/P Pulse Ox O2 Delivery O2 Flow Rate FiO2 09/07/16 15:16 36.9 74 18 118/68 96 Room Air 09/07/16 11:35 36.8 66 18 122/70 97 Room Air 09/07/16 07:55 Room Air 09/07/16 07:05 36.8 68 16 132/79 98 Room Air 09/07/16 03:26 36.8 70 16 125/62 97 Room Air 09/06/16 23:30 Room Air 09/06/16 22:58 36.9 69 16 127/72 97 Room Air 09/06/16 21:49 36.4 72 18 152/80 98 Nasal Cannula 2.0 09/06/16 21:21 36.6 69 18 126/75 98 Nasal Cannula 2.0 09/06/16 20:29 36.4 66 18 135/71 99 Nasal Cannula 2.0 Lab Results: Results Past 24 Hours Test 09/07/16 06:20 Range/Units White Blood Count 8.11 4.8-10.8 K/uL Red Blood Count 3.64 4.7-6.1 M/uL Hemoglobin 10.8 14.0-18.0 g/dL Hematocrit 32.1 42-52 % Mean Corpuscular Volume 88.2 80-100 fL Mean Corpuscular Hemoglobin 29.7 25-34 pg Mean Corpuscular Hemoglobin Concent 33.6 32-36 g/dl Platelet Count 101 130-400 K/uL Mean Platelet Volume 11.8 7.4-10.4 fL Neutrophils (%) (Auto) 77.8 % Lymphocytes (%) (Auto) 13.7 % Monocytes (%) (Auto) 7.4 % Eosinophils (%) (Auto) 0.9 % Basophils (%) (Auto) 0.1 % Neutrophils # (Auto) 6.31 1.4-6.5 K/uL Lymphocytes # (Auto) 1.11 1.2-3.4 K/uL Monocytes # (Auto) 0.60 0.11-0.59 K/uL Eosinophils # (Auto) 0.07 0-0.5 K/uL Basophils # (Auto) 0.01 0-0.2 K/uL RDW Standard Deviation 42.4 36.4-46.3 fL RDW Coefficient of Variation 13.0 11.5-14.5 % Immature Granulocyte % (Auto) 0.1 % Immature Granulocyte # (Auto) 0.01 0.00-0.02 K/uL Sodium Level 141 136-145 mmol/L Potassium Level 4.0 3.5-5.1 mmol/L Chloride Level 107 98-107 mmol/L Carbon Dioxide Level 26 21-32 mmol/L Anion Gap 8.0 3-11 mmol/L Blood Urea Nitrogen 16 7-18 mg/dl Creatinine 0.96 0.60-1.40 mg/dl Est Creatinine Clear Calc Drug Dose 84.1 ml/min Estimated GFR () 96.4 Estimated GFR (Non- 83.2 BUN/Creatinine Ratio 16.4 10-20 Random Glucose 93 70-99 mg/dl Calcium Level 8.2 8.5-10.1 mg/dl
[2016-09-07 23:04] VITALS: BP 132/68; PULSE 73; TEMP 37; O2SAT 97
[2016-09-08] MEDS: LEVOTHYROXINE 137 MCG TAB PO SCH (05:51)
[2016-09-08 07:03] LABS: HEMATOCRIT 32.1 % (42-52); MEAN CELL VOLUME 88.4 fL (80-100); MEAN CORPUSCULAR HEMOGLOBIN 29.5 pg (25-34); MEAN CORPUSCULAR HGB CONC 33.3 g/dl (32-36); MEAN PLATELET VOLUME 10.9 fL (7.4-10.4); PLATELET COUNT 152 K/uL (130-400); RED BLOOD COUNT 3.63 M/uL (4.7-6.1)
[2016-09-08 07:15] LABS: BASO % 0.3 %; BASO ABS # 0.02 K/uL (0-0.2); COMPLETE YES; EOS % 2.5 %; IG% 0.3 %; LYMPH % 16.4 %; LYMPH ABS # 1.13 K/uL (1.2-3.4); MONO % 9.6 %; NEUT % 70.9 %
[2016-09-08 07:16] LABS: BUN/CREATININE RATIO 13.2 (10-20); CALCIUM 8.1 mg/dl (8.5-10.1); CREATININE 0.95 mg/dl (0.60-1.40); POTASSIUM 4.4 mmol/L (3.5-5.1)
[2016-09-08 07:23] VITALS: BP 155/88; PULSE 69; TEMP 37; O2SAT 98
[2016-09-08] MEDS: CLINDAMYCIN IV 900 MG in DEXTROSE 5% ADD-VANTAGE 100ML 100 ML IV SCH (08:40)
[2016-09-08] MEDS: AZTREONAM 2000 MG in DEXTROSE 5% 100 ML IV SCH (08:40)
[2016-09-08] MEDS: CEROVITE ADV FORMULA TAB PO SCH (08:41)
[2016-09-08] MEDS: LOSARTAN POTASSIUM 50 MG TAB PO SCH (08:41)
[2016-09-08] MEDS ORDERED: VANCOMYCIN TROUGH SCH (09:30)
[2016-09-08] MEDS: VANCOMYCIN INJ 1,350 MG in SODIUM CHLORIDE 0.9% 250ML 250 ML IV SCH (09:57)
--- NOTE | 2016-09-08 12:05 | Infectious Disease Progress Nt ---
Progress Note Date of Service Sep 08, 2016. Subjective Pt evaluation today including: conversation w/ patient, physical exam, chart review, lab review, review of studies, review of inpatient medication list White blood cell count today is 6.90. His creatinine was 0.95. His joint space fluid culture was finalized with no growth. His blood cultures continue to show no growth. His Western blot is pending. His synovial fluid analysis showed 55,000 white blood cells and no crystals. He has been afebrile. He states that he does have some pain and aching in his right knee and thigh. He does still have tenderness to touch of the right thigh as well. He is anticipating a possible 2nd right knee washout today. All Other Systems: Reviewed and Negative Medications Current Inpatient Medications Medications (Trade) Dose Ordered Sig/Jasmyne Route Start Time Stop Time Status Last Admin Dose Admin Ioversol (Optiray 320) 100 ml UD PRN IV 09/05/16 01:15 09/09/16 01:14 Acetaminophen (Tylenol Tab) 650 mg Q4H PRN PO 09/05/16 05:00 10/05/16 04:59 Ondansetron HCl (Zofran Inj) 4 mg Q6H PRN IV 09/05/16 05:00 10/05/16 04:59 Tramadol HCl (Ultram Tab) 50 mg Q6H PRN PO 09/05/16 05:00 10/05/16 04:59 09/05/16 20:05 50 MG Oxycodone/ Acetaminophen (Percocet 5-325MG Tab) 1 tab Q6H PRN PO 09/05/16 05:00 09/19/16 04:59 Levothyroxine Sodium (Synthroid Tab) 137 mcg DAILYBB PO 09/05/16 06:00 10/05/16 05:59 09/08/16 05:51 137 MCG Losartan Potassium (coZAAR TAB) 50 mg DAILY PO 09/05/16 09:00 10/05/16 08:59 09/08/16 08:41 50 MG Multivitamins/ Minerals (Multivitamin W/ Minerals Tab) 1 tab DAILY PO 09/05/16 09:00 10/05/16 08:59 09/08/16 08:41 1 TAB Clonidine HCl (Catapres Tab) 0.1 mg Q6H PRN PO 09/05/16 05:00 10/05/16 04:59 Vancomycin HCl 1 ea 1 ea UD PRN N/A 09/05/16 17:00 10/05/16 16:59 Vancomycin HCl 1500 mg/Sodium Chloride 530 ml @ 200 mls/hr Q12H IV 09/08/16 18:00 09/14/16 15:59 Ceftriaxone Sodium/Dextrose (Rocephin Inj/D5 50ml) 70 ml @ 100 mls/hr Q24H IV 09/08/16 16:00 09/18/16 11:59 Objective Vital Signs Date Time Temp Pulse Resp B/P Pulse Ox O2 Delivery O2 Flow Rate FiO2 09/08/16 07:23 37.0 69 16 155/88 98 Room Air 09/08/16 07:15 Room Air 09/07/16 23:38 Room Air 09/07/16 23:04 37.0 73 16 132/68 97 Room Air 09/07/16 15:50 Room Air 09/07/16 15:16 36.9 74 18 118/68 96 Room Air Physical Exam General Appearance: WD/WN, no apparent distress Eyes: normal inspection, sclerae normal ENT: hearing grossly normal Neck: supple, trachea midline Respiratory/Chest: no respiratory distress, no accessory muscle use Cardiovascular: regular rate, rhythm Extremities: + pertinent finding (Large dressing on the entire right leg. Note some drainage around the surgical drain of the right knee saturating the dressing in this area.) Neurologic/Psychiatric: alert, normal mood/affect Skin: warm/dry, + pertinent finding (Continued mild erythema of the right inner thigh) Laboratory Results Item Value Date Time Gram Stain - Final Complete 09/05/16 1615 Joint Fluid/Space (Synovial) Knee Right Blood Culture - Preliminary Resulted 09/04/16 2338 Blood NO GROWTH TO DATE. Blood Culture - Preliminary Resulted 09/04/16 2330 Blood NO GROWTH TO DATE. RUN DATE: 09/07/16 [facility] PAGE 1 RUN TIME: 1218 Specimen Inquiry PATIENT: KISHA NIELSEN [facility] [facility] [place] : [id number] AGE/SX: 65/M ROOM: [facility] REG : 09/05/[address]: Alexandra Castillo M.D. : 1950 BED: 2 DIS : STATUS: ADM IN TLOC: SPEC #: [id number] OPAL: 09/05/16 STATUS: COMP REQ #: [id number] RECD: 09/05/[address] [facility] [address]: Douglas York M.D. SOURCE: JOINT FLSP ENTR: 09/05/[address] [facility] [address]: Torsten Muhammad MD SPDES: KNEE RIGHT Rosalva Bowie M.D. (MEDICAL) Martin Elizabeth M.D. Panlilio, Robin A., MD Roeshot, Douglas, M.D. ORDERED: CAMILA FL/SP CU/SM Procedure Result Verified Site GRAM STAIN Final 09/06/16-905 RESULT MANY WBCs SEEN NO ORGANISMS SEEN JOINT FLUID/SPACE CULTURE Final 09/07/16-1217 NO GROWTH Last 24 Hours Test 09/08/16 06:20 09/08/16 09:30 White Blood Count 6.90 K/uL Red Blood Count 3.63 M/uL Hemoglobin 10.7 g/dL Hematocrit 32.1 % Mean Corpuscular Volume 88.4 fL Mean Corpuscular Hemoglobin 29.5 pg Mean Corpuscular Hemoglobin Concent 33.3 g/dl Platelet Count 152 K/uL Mean Platelet Volume 10.9 fL Neutrophils (%) (Auto) 70.9 % Lymphocytes (%) (Auto) 16.4 % Monocytes (%) (Auto) 9.6 % Eosinophils (%) (Auto) 2.5 % Basophils (%) (Auto) 0.3 % Neutrophils # (Auto) 4.90 K/uL Lymphocytes # (Auto) 1.13 K/uL Monocytes # (Auto) 0.66 K/uL Eosinophils # (Auto) 0.17 K/uL Basophils # (Auto) 0.02 K/uL RDW Standard Deviation 42.8 fL RDW Coefficient of Variation 13.1 % Immature Granulocyte % (Auto) 0.3 % Immature Granulocyte # (Auto) 0.02 K/uL Sodium Level 143 mmol/L Potassium Level 4.4 mmol/L Chloride Level 110 mmol/L Carbon Dioxide Level 26 mmol/L Anion Gap 7.0 mmol/L Blood Urea Nitrogen 13 mg/dl Creatinine 0.95 mg/dl Est Creatinine Clear Calc Drug Dose 85.0 ml/min Estimated GFR () 97.7 Estimated GFR (Non- 84.3 BUN/Creatinine Ratio 13.2 Random Glucose 115 mg/dl Calcium Level 8.1 mg/dl Vancomycin Level Trough 9.2 mcg/ml Assessment and Plan (1) Cellulitis of right leg Status: Acute Patient with right inner thigh, posterior knee, and knee joint swelling along with erythema and warmth. Patient is s/p knee aspiration and s/p I & D of the right knee as well. Aspirate culture is showing no growth to date. No crystals seen on analysis but 55,000 WBC's. Patient with positive Lyme IgG as well but WB pending. Question whether patient has septic arthritis versus Lyme arthritis versus Psoriatic arthritis with superimposed cellulitis of the right thigh. He is currently on IV Azactam, Clindamycin, and Vancomycin. He is tolerating these well. He has completed 48 hours of Clindamycin for toxin reduction, therefore will D/C this. Will also change IV Azactam to IV Ceftriaxone for coverage of gram negatives but also for the possibility of Lyme arthritis. Will await repeat operative findings. Patient continues to have tenderness and erythema of the right inner thigh- question underlying infection in this area. We will follow. Plan: 1. Continue IV Vancomycin 2. D/C Clindamycin and Azactam- change to IV Ceftriaxone 3. Await further operative findings- please culture findings case reviewed and agree with above assessment.
--- NOTE | 2016-09-08 14:03 | Pharmacy Progress Note ---
Pharmacy Antibiotic Prog Note Date of Service: Sep 08, 2016. Subjective: The patient is currently receiving vancomycin and aztreonam for the treatment of RLE cellulitis, r/o septic joint. The patient is currently on day # 4 of anti-MRSA antibiotics (daptomycin then vancomycin) and day # 4 aztreonam/clindamycin IV therapy. Objective: Height (Feet): 5 Height (Inches): 8.00 Weight (Kilograms): 88.600 Levels: Item Value Date Time Vancomycin Level Trough 9.2 mcg/ml 09/08/16 0930 Lab Results (24hrs): Laboratory Tests Test 09/08/16 06:20 BUN/Creatinine Ratio 13.2 Blood Urea Nitrogen 13 mg/dl Creatinine 0.95 mg/dl White Blood Count 6.90 K/uL Red Blood Count 3.63 M/uL Hemoglobin 10.7 g/dL Hematocrit 32.1 % Mean Corpuscular Volume 88.4 fL Mean Corpuscular Hemoglobin 29.5 pg Mean Corpuscular Hemoglobin Concent 33.3 g/dl Platelet Count 152 K/uL Mean Platelet Volume 10.9 fL Neutrophils (%) (Auto) 70.9 % Lymphocytes (%) (Auto) 16.4 % Monocytes (%) (Auto) 9.6 % Eosinophils (%) (Auto) 2.5 % Basophils (%) (Auto) 0.3 % Neutrophils # (Auto) 4.90 K/uL Lymphocytes # (Auto) 1.13 K/uL Monocytes # (Auto) 0.66 K/uL Eosinophils # (Auto) 0.17 K/uL Basophils # (Auto) 0.02 K/uL Micro Results: Item Value Date Time Blood Culture - Preliminary Resulted 09/04/16 2330 Blood NO GROWTH TO DATE. Blood Culture - Preliminary Resulted 09/04/16 2338 Blood NO GROWTH TO DATE. Gram Stain - Final Complete 09/05/16 1615 Joint Fluid/Space (Synovial) Knee Right Assessment & Plan: Assessment: * 65 y/o male with possible cellulitis vs septic joint vs gout PER ID NOTE: * Patient is s/p knee aspiration and s/p I & D of the right knee as well. * Aspirate culture is showing no growth to date. No crystals seen on analysis but 55,000 WBC's. * Patient with positive Lyme IgG as well but WB pending. * Question whether patient has septic arthritis versus Lyme arthritis versus Psoriatic arthritis with superimposed cellulitis of the right thigh. * He is currently on IV Azactam, Clindamycin, and Vancomycin. * He is tolerating these well. He has completed 48 hours of Clindamycin for toxin reduction, therefore will D/C this. * Will also change IV Azactam to IV Ceftriaxone for coverage of gram negatives but also for the possibility of Lyme arthritis. Plan: 1.) Continue vancomycin * Current level shows sub-therapeutic concentrations * increase dose to 1500mg IV q12H * follow up trough on 09/10 prior to the 06:00 dose * Goal trough 15-20mcg/mL if septic joint 2.) Aztreonam and clindamycin discontinued 3.) Ceftriaxone began * 2000mg IV q24H for both gram negative and Lyme disease coverage Pharmacy will continue to follow and will adjust dose/frequency as necessary. Thank you
--- NOTE | 2016-09-08 15:06 | ORTHOPEDICS PROGRESS NOTE ---
DATE: 09/08/2016 DATE: 09/08/2016. SUBJECTIVE: The patient is a 65-year-old male who has got a suspected septic left knee and possible abscess in his thigh. He was originally made n.p.o. for an I\T\D today, but this was not communicated to me and I do not appreciate enough of a collection on imaging currently available to know where I would even approach this. PHYSICAL EXAMINATION: The patient appears to be comfortable, complaining of medial thigh pain. Cultures continue to show no gross. ASSESSMENT: Possible ongoing septic left knee, possible abscess thigh. PLAN: Will feed today, make him n.p.o. after midnight once again, consult general surgery and order an MRI for more definitive soft tissue imaging of the right thigh.
[2016-09-08 15:35] VITALS: BP 144/85; PULSE 62; TEMP 36.5; O2SAT 99
[2016-09-08] MEDS: CEFTRIAXONE SOD INJ 2,000 MG in DEXTROSE 5% 50ML 50 ML IV SCH (16:00)
[2016-09-08 16:23] VITALS: O2SAT 99
[2016-09-08] MEDS: VANCOMYCIN INJ 1,500 MG in SODIUM CHLORIDE 0.9% 500ML 500 ML IV SCH (18:04)
--- NOTE | 2016-09-08 22:15 | DIAGNOSTIC IMAGING REPORT ---
MRI THE RIGHT THIGH NO CONTRAST CLINICAL HISTORY: Right thigh abscess COMPARISON STUDY: CT scan dated 09/05/2016 FINDINGS: Imaging was performed in the sagittal coronal and axial planes. There are no pathologic foci of marrow replacement. There is a suprapatellar joint effusion. There is a popliteal cyst present. There is edema present within the abductor maría muscle. Foci of edema are also present within the vastus medialis and vastus intermedius. There is moderate cutaneous and subcutaneous edema present. There is edema surrounding the periosteum of the mid to distal femur. There is a fluid collection measuring 21 x 5 x 2 cm located between the semimembranosus and abductor maría muscles. Given the clinical history, this could represent an abscess. Foci of intramuscular edema could indicate a myositis. IMPRESSION: 1. 21 x 5 x 2 cm fluid collection within the posterior thigh located between the semimembranosus and abductor maría muscles. Given the clinical history this could represent an abscess 2. Foci of intramuscular edema within the abductor maría, vastus medialis, and vastus intermedius muscles. This may indicate a myositis. 3. Cutaneous and subcutaneous edema consistent with a cellulitis 4. Joint effusion popliteal cyst 5. No evidence of pathologic marrow edema Electronically signed by: Stevo Lyon M.D. 09/08/2016 10:13 PM
[2016-09-08 23:03] VITALS: BP 157/77; PULSE 65; TEMP 36.9; O2SAT 97
--- NOTE | 2016-09-08 23:11 | Progress Note ---
Internal Med Progress Note Date of Service: Sep 08, 2016. Provider Documentation: SUBJECTIVE: continued to have pain and discomfort in rt inner thigh no fever or chills OBJECTIVE: Vital Signs-as noted below Exam: General-no sign of distress Eyes-sclera non icteric , PERRLA/EOMI ENT-NAD Neck-TRACHEA midline , no thyromegaly Lungs-CTA , no wheeze or rales Heart-regular S1/S2 Abdomen-sot, non tender Extremities-no rash or deformity ; rt knee bandage /drain present , + persisted erythema/swelling and tenderness on Rt inner upper thigh Neuro-no focal neurological deficit Lab data as noted below. ASSESSMENT & PLAN: INFECTED Right knee CT done showed Large joint effusion. Popliteal cyst which appears to extend cephalad at the posterior soft tissues of the thigh measuring 18 x 33 x 23 mm. Knee aspiration done by ortho Dr. York synovial fluid analysis shows no Crystals, WBC > 55 K suggestive of infected /septic joint appreciate Ortho wilmaral underwent arthroscopic I&D of rt knee synovial fluid culture and gram stain 09/05/16 shows multiple WBC , no organism culture negative ID following Lyme Ig G + ve , western blot pending as per pt had multiple tickbite last year , does no recall any tick exposure this year Abx adjusted to IV Vancomycin /Rocephin pt is afebrile , normal white count RT INNER THIGH PAIN : has ongoing pain /erythema extending form rt upper knee to inner thigh general surgery consulted MRI of lower ext shows: 1. 21 x 5 x 2 cm fluid collection within the posterior thigh located between the semimembranosus and abductor maría muscles. 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 Abx -depending on culture -will be determined IV vs PO will need continued PT/rehab of Rt knee Social service consulted for DC planning Vital Signs: Date Time Temp Pulse Resp B/P Pulse Ox O2 Delivery O2 Flow Rate FiO2 09/09/16 07:14 36.7 69 16 138/92 97 Room Air 09/08/16 23:32 Room Air 09/08/16 23:03 36.9 65 16 157/77 97 Room Air 09/08/16 16:23 99 Room Air 09/08/16 15:35 36.5 62 16 144/85 99 Room Air Lab Results: Results Past 24 Hours Test 09/08/16 09:30 09/09/16 06:25 Range/Units Vancomycin Level Trough 9.2 SEE COMMENT mcg/ml White Blood Count 8.38 4.8-10.8 K/uL Red Blood Count 4.23 4.7-6.1 M/uL Hemoglobin 12.9 14.0-18.0 g/dL Hematocrit 37.7 42-52 % Mean Corpuscular Volume 89.1 80-100 fL Mean Corpuscular Hemoglobin 30.5 25-34 pg Mean Corpuscular Hemoglobin Concent 34.2 32-36 g/dl Platelet Count 242 130-400 K/uL Mean Platelet Volume 10.5 7.4-10.4 fL Neutrophils (%) (Auto) 71.0 % Lymphocytes (%) (Auto) 18.5 % Monocytes (%) (Auto) 7.6 % Eosinophils (%) (Auto) 2.3 % Basophils (%) (Auto) 0.5 % Neutrophils # (Auto) 5.95 1.4-6.5 K/uL Lymphocytes # (Auto) 1.55 1.2-3.4 K/uL Monocytes # (Auto) 0.64 0.11-0.59 K/uL Eosinophils # (Auto) 0.19 0-0.5 K/uL Basophils # (Auto) 0.04 0-0.2 K/uL RDW Standard Deviation 42.5 36.4-46.3 fL RDW Coefficient of Variation 13.1 11.5-14.5 % Immature Granulocyte % (Auto) 0.1 % Immature Granulocyte # (Auto) 0.01 0.00-0.02 K/uL Sodium Level 140 136-145 mmol/L Potassium Level 4.1 3.5-5.1 mmol/L Chloride Level 104 98-107 mmol/L Carbon Dioxide Level 28 21-32 mmol/L Anion Gap 8.0 3-11 mmol/L Blood Urea Nitrogen 13 7-18 mg/dl Creatinine 1.00 0.60-1.40 mg/dl Est Creatinine Clear Calc Drug Dose 80.7 ml/min Estimated GFR () 91.8 Estimated GFR (Non- 79.2 BUN/Creatinine Ratio 13.3 10-20 Random Glucose 128 70-99 mg/dl Calcium Level 8.9 8.5-10.1 mg/dl
--- NOTE | 2016-09-08 23:55 | SURGICAL CONSULTATION ---
DATE OF CONSULTATION: 09/08/2016 PROVIDER: Dr. Condon, general surgery. CONSULTATION REPORT: I have been asked by Dr. Bishop to evaluate this patient regarding a potential right medial thigh abscess. HISTORY OF PRESENT ILLNESS: This is a 65-year-old male who developed a painful right knee joint and medial thigh about 5 days ago. One day later, he came to the hospital and was found to be febrile leukocytosis with a tachycardia. A CT scan at that time revealed a large right knee joint effusion, popliteal cyst measuring 1.8 x 3.3 x 2.3 cm, a 9 mm hyperdense focus in the fluid collection abutting the semimembranous muscle, diffuse edema and fluid abutting the fascial margin of the vastus lateralis. The patient had aspiration of the knee joint which yielded serous colored fluid. The white count was 55,000. The following day, he underwent a right knee arthroscopy, irrigation and debridement with partial lateral meniscectomy and major synovectomy. The patient presently has drains in place. He still has significant pain of his knee, but mostly of his right medial thigh with redness and tenderness progressing up to the proximal medial thigh. The right lower leg is spared. The patient presently does not have fever, chills, night sweats, nausea or vomiting. PAST MEDICAL HISTORY: Hypertension, hypothyroidism, psoriasis. PAST SURGICAL HISTORY: Recent arthritis. ALLERGIES: PENICILLIN. PRESENT MEDICATION: Levothyroxine, losartan, testosterone supplement, and multiple vitamins. SOCIAL HISTORY: No tobacco use or drug use. FAMILY HISTORY: Unknown. REVIEW OF SYSTEMS: GENERAL: The patient has no weakness or fatigue. SKIN: He does have some active psoriasis, rashes but no itching. EYES: No visual change or ocular pain. BREASTS: No breast lump or nipple discharge. CARDIAC: No chest pain or palpitations. PULMONARY: No shortness of breath or productive cough. ABDOMEN: No nausea, vomiting. GENITOURINARY: No penile discharge or frequent urination. NEUROLOGIC: No seizures or numbness. SKELETAL: No back pain, but he does have right joint pain. PHYSICAL EXAMINATION: VITAL SIGNS: Temperature 36.5, blood pressure 144/85, heart rate 62, respirations 16, O2 saturation 99% on room air. HEENT: Ears, nose and throat clear. Pupils equal and reactive. Nonicteric sclerae. Normal skin turgor, normal hearing, dentition intact. Midline tongue. NECK: Soft, supple, no cervical bruits or lymphadenopathy, midline trachea. CHEST: Clear. No rales or rhonchi. HEART: Regular rate and rhythm with a very soft systolic murmur may be 1/6. GASTROINTESTINAL: Abdomen slightly distended, soft, nontender, no guarding, no rebound. Bowel sounds are present in all 4 quadrants. No scars, no palpable masses or hernias. GENITOURINARY: Normal external genitalia, no inguinal masses. NEUROLOGIC: Alert, oriented x3. Cranial nerves III-XII intact. Peripheral sensory equal and symmetrical. EXTREMITIES: Normal range of motion of bilateral arm and left leg. The right knee is slightly stiff. It is still swollen. He has active drains in the right knee. He also has a large area of erythema and induration with tenderness arising from the medial thigh at the level of the knee joint all the way up to the proximal thigh just below the groin. There is no discrete fluctuant mass. There are no pustules or pointing in the skin. No evidence of lymphangitis. Bilateral calves are soft, supple and nontender to palpation. LABORATORY DATA: White count 6.9, hemoglobin 10.7, platelets 152, polys 71%. Electrolytes normal. Glucose 115. IMPRESSION: 1. Right knee joint effusion. 2. Right medial thigh cellulitis, etiology unknown. 3. Possible ruptured right Be cyst. 4. No obvious clinical abscess, right thigh. PLAN: From a clinical point of view, I do not see a discrete abscess fluid collection that needs to be drained immediately. The patient states that he is scheduled for an imaging study of the right thigh. Hopefully, this will give us further inflammation. If there is an underlying abscess, we can schedule him for drainage. I will have the nursing staff rewrapped the dressings and apply an Dwaine wrap. Dr. Justice will cover Dr. Condon starting at 7:00 a.m. on 09/09/2016. I have discussed my clinical findings with the patient and his . They understand that he will not be scheduled for an incision and drainage of abscess tonight. The imaging study will first need to be done. They understand that I am coming off service tomorrow morning and that Dr. Justice and TABATHA Romero will be covering the surgery service.
[2016-09-09] VITALS (7 sets, daily range): BP systolic 136–167; BP diastolic 68–92; PULSE 55–69; TEMP 36.3–36.7; O2SAT 94–100
[2016-09-09] MEDS: LEVOTHYROXINE 137 MCG TAB PO SCH ×2 (05:42→07:33)
[2016-09-09] MEDS: VANCOMYCIN INJ 1,500 MG in SODIUM CHLORIDE 0.9% 500ML 500 ML IV SCH ×2 (05:50→18:16)
[2016-09-09 07:04] LABS: BASO % 0.5 %; BASO ABS # 0.04 K/uL (0-0.2); COMPLETE YES; EOS % 2.3 %; HEMATOCRIT 37.7 % (42-52); IG% 0.1 %; LYMPH % 18.5 %; LYMPH ABS # 1.55 K/uL (1.2-3.4); MEAN CELL VOLUME 89.1 fL (80-100); MEAN CORPUSCULAR HEMOGLOBIN 30.5 pg (25-34); MEAN CORPUSCULAR HGB CONC 34.2 g/dl (32-36); MEAN PLATELET VOLUME 10.5 fL (7.4-10.4); MONO % 7.6 %; PLATELET COUNT 242 K/uL (130-400); RED BLOOD COUNT 4.23 M/uL (4.7-6.1); WHITE BLOOD COUNT 8.38 K/uL (4.8-10.8)
[2016-09-09 07:15] LABS: BUN/CREATININE RATIO 13.3 (10-20); CALCIUM 8.9 mg/dl (8.5-10.1); POTASSIUM 4.1 mmol/L (3.5-5.1)
--- NOTE | 2016-09-09 07:58 | Progress Note ---
Progress Note ATTENDING NOTE : LOWER EXTREMITY MRI : 21 x 5 x 2 cm fluid collection within the posterior thigh located between the semimembranosus and abductor maría muscles. Given the clinical history this could represent an abscess Paged Surgery team -MRI finding updated to Fredis Justice shipping lead person for surgical team pt will be kept NPO till evaluated by surgical team
[2016-09-09] MEDS: CEROVITE ADV FORMULA TAB PO SCH (08:25)
[2016-09-09] MEDS: LOSARTAN POTASSIUM 50 MG TAB PO SCH (08:25)
--- NOTE | 2016-09-09 10:29 | Infectious Disease Progress Nt ---
Progress Note Date of Service Sep 09, 2016. Subjective Pt evaluation today including: conversation w/ patient, physical exam, chart review, lab review, review of studies, conversation w/ funeral pre need consultant (general surgery), review of inpatient medication list Patient is feeling OK this morning, but continues to have erythema and tenderness of the right medial thigh. His right thigh MRI showed a fluid collection measuring 21 x 5x 2 cm within the posterior thigh between the musculature suggestive of possible abscess along with potential surrounding myositis, cutaneous and subcutaneous edema, and joint effusion with popliteal cyst. His platelets are increase to 242 today. Western blot is still pending. WBC count today is 8.38. He is currently on IV Vancomycin and Ceftriaxone and tolerating these well. He states he did have a mildly loose bowel movement this morning, but no diarrhea or abdominal pain. All Other Systems: Reviewed and Negative Medications Current Inpatient Medications Medications (Trade) Dose Ordered Sig/Jasmyne Route Start Time Stop Time Status Last Admin Dose Admin Acetaminophen (Tylenol Tab) 650 mg Q4H PRN PO 09/05/16 05:00 10/05/16 04:59 Ondansetron HCl (Zofran Inj) 4 mg Q6H PRN IV 09/05/16 05:00 10/05/16 04:59 Tramadol HCl (Ultram Tab) 50 mg Q6H PRN PO 09/05/16 05:00 10/05/16 04:59 09/05/16 20:05 50 MG Oxycodone/ Acetaminophen (Percocet 5-325MG Tab) 1 tab Q6H PRN PO 09/05/16 05:00 09/19/16 04:59 Levothyroxine Sodium (Synthroid Tab) 137 mcg DAILYBB PO 09/05/16 06:00 10/05/16 05:59 09/09/16 07:33 137 MCG Losartan Potassium (coZAAR TAB) 50 mg DAILY PO 09/05/16 09:00 10/05/16 08:59 09/09/16 08:25 50 MG Multivitamins/ Minerals (Multivitamin W/ Minerals Tab) 1 tab DAILY PO 09/05/16 09:00 10/05/16 08:59 09/09/16 08:25 1 TAB Clonidine HCl (Catapres Tab) 0.1 mg Q6H PRN PO 09/05/16 05:00 10/05/16 04:59 Vancomycin HCl 1 ea 1 ea UD PRN N/A 09/05/16 17:00 10/05/16 16:59 Vancomycin HCl 1500 mg/Sodium Chloride 530 ml @ 200 mls/hr Q12H IV 09/08/16 18:00 09/14/16 15:59 09/09/16 05:50 200 MLS/HR Ceftriaxone Sodium/Dextrose (Rocephin Inj/D5 50ml) 70 ml @ 100 mls/hr Q24H IV 09/08/16 16:00 09/18/16 11:59 09/08/16 16:00 100 MLS/HR Objective Vital Signs Date Time Temp Pulse Resp B/P Pulse Ox O2 Delivery O2 Flow Rate FiO2 09/09/16 07:30 Room Air 09/09/16 07:14 36.7 69 16 138/92 97 Room Air 09/08/16 23:32 Room Air 09/08/16 23:03 36.9 65 16 157/77 97 Room Air 09/08/16 16:23 99 Room Air 09/08/16 15:35 36.5 62 16 144/85 99 Room Air Physical Exam General Appearance: WD/WN, no apparent distress Eyes: normal inspection, sclerae normal ENT: hearing grossly normal Neck: supple, trachea midline Respiratory/Chest: no respiratory distress, no accessory muscle use Cardiovascular: regular rate, rhythm Extremities: + pertinent finding (right inner thigh continued induration and tenderness. Dressing on the right lower extremity with continued saturation around the right knee) Neurologic/Psychiatric: alert, normal mood/affect Skin: warm/dry, + pertinent finding (mild erythema of the right inner thigh) Laboratory Results MRI THE RIGHT THIGH NO CONTRAST CLINICAL HISTORY: Right thigh abscess COMPARISON STUDY: CT scan dated 09/05/2016 FINDINGS: Imaging was performed in the sagittal coronal and axial planes. There are no pathologic foci of marrow replacement. There is a suprapatellar joint effusion. There is a popliteal cyst present. There is edema present within the abductor maría muscle. Foci of edema are also present within the vastus medialis and vastus intermedius. There is moderate cutaneous and subcutaneous edema present. There is edema surrounding the periosteum of the mid to distal femur. There is a fluid collection measuring 21 x 5 x 2 cm located between the semimembranosus and abductor maría muscles. Given the clinical history, this could represent an abscess. Foci of intramuscular edema could indicate a myositis. IMPRESSION: 1. 21 x 5 x 2 cm fluid collection within the posterior thigh located between the semimembranosus and abductor maría muscles. Given the clinical history this could represent an abscess 2. Foci of intramuscular edema within the abductor maría, vastus medialis, and vastus intermedius muscles. This may indicate a myositis. 3. Cutaneous and subcutaneous edema consistent with a cellulitis 4. Joint effusion popliteal cyst 5. No evidence of pathologic marrow edema Last 24 Hours Test 09/09/16 06:25 White Blood Count 8.38 K/uL Red Blood Count 4.23 M/uL Hemoglobin 12.9 g/dL Hematocrit 37.7 % Mean Corpuscular Volume 89.1 fL Mean Corpuscular Hemoglobin 30.5 pg Mean Corpuscular Hemoglobin Concent 34.2 g/dl Platelet Count 242 K/uL Mean Platelet Volume 10.5 fL Neutrophils (%) (Auto) 71.0 % Lymphocytes (%) (Auto) 18.5 % Monocytes (%) (Auto) 7.6 % Eosinophils (%) (Auto) 2.3 % Basophils (%) (Auto) 0.5 % Neutrophils # (Auto) 5.95 K/uL Lymphocytes # (Auto) 1.55 K/uL Monocytes # (Auto) 0.64 K/uL Eosinophils # (Auto) 0.19 K/uL Basophils # (Auto) 0.04 K/uL RDW Standard Deviation 42.5 fL RDW Coefficient of Variation 13.1 % Immature Granulocyte % (Auto) 0.1 % Immature Granulocyte # (Auto) 0.01 K/uL Sodium Level 140 mmol/L Potassium Level 4.1 mmol/L Chloride Level 104 mmol/L Carbon Dioxide Level 28 mmol/L Anion Gap 8.0 mmol/L Blood Urea Nitrogen 13 mg/dl Creatinine 1.00 mg/dl Est Creatinine Clear Calc Drug Dose 80.7 ml/min Estimated GFR () 91.8 Estimated GFR (Non- 79.2 BUN/Creatinine Ratio 13.3 Random Glucose 128 mg/dl Calcium Level 8.9 mg/dl Assessment and Plan (1) Cellulitis of right leg Status: Acute Patient with right inner thigh, posterior knee, and knee joint swelling along with erythema and warmth. Patient is s/p knee aspiration and s/p I & D of the right knee as well. Aspirate culture is showing no growth to date. No crystals seen on analysis but 55,000 WBC's. Patient with positive Lyme IgG as well but WB pending. Question whether patient has septic arthritis versus Lyme arthritis versus Psoriatic arthritis with superimposed cellulitis of the right thigh. He is currently on IV Ceftriaxone and Vancomycin. He is tolerating these well. It appears that the patient will need an I & D to drain the large muscular fluid collection of the right thigh. This is highly concerning for abscess with overlying induration/cellulitis. Because his cultures were negative thus far, will also order rheumatoid panel and GC/Chlamydia screen to R/O Rheumatoid or reactive cause of inflammatory arthritis. We will continue to follow. More than likely this patient will need treatment for both abscess and the potential for Lyme arthritis pending his culture. Continue current abx pending further I & D. Plan: 1. Continue IV Vancomycin and Ceftriaxone 2. Await further operative findings- please culture findings 3. Rheumatoid panel, GC/Chlamydia test Case reviewed and agree with above assessment, continue abx, follow cultures.
[2016-09-09] MEDS ORDERED: MIDAZOLAM HCL 1 MG/ML 2ML VIAL ONE ×2 (10:46→13:02)
[2016-09-09] MEDS ORDERED: FENTANYL CITRATE INJ 50 MCG/1 ML 2 ML VIAL ONE ×3 (10:46→13:59)
[2016-09-09] MEDS ORDERED: HYDROmorphone INJ 1 MG/ML SYR IV PRN (11:45)
[2016-09-09] MEDS ORDERED: ONDANSETRON INJ 2 MG/ML 2 ML VIAL IV PRN (11:45)
[2016-09-09] MEDS ORDERED: ATROPINE SULFATE 0.1 MG/ML 5ML SYR IV PRN (11:45)
[2016-09-09] MEDS ORDERED: EpHEDrine SULFATE INJ 50 MG/ML AMP IV PRN (11:45)
--- NOTE | 2016-09-09 13:07 | History & Physical Bridge Note ---
H&P Re-Evaluation Bridge Note: I have examined the patient, reviewed the History & Physical and in the interval since the performance of the History & Physical I have noted the following changes of clinical significance: Continued effusion with recurrent Hemovac drainage from knee. Medial thigh region with diminished erythema, edema and turgor. No fluctuance medial thigh.
[2016-09-09] MEDS ORDERED: BACITRACIN 50000 UNIT VIAL IR ONE (14:32)
[2016-09-09] MEDS ORDERED: DEXAMETHASONE SOD INJ 4 MG/ML VIAL ONE (14:40)
[2016-09-09] MEDS ORDERED: ONDANSETRON INJ 2 MG/ML 2 ML VIAL ONE (14:40)
[2016-09-09 14:44] LABS: 18KDIGG BAND REACTIVE (NONREACTIVE); 23KDIGG BAND NONREACTIVE (NONREACTIVE); 23KDIGM BAND NONREACTIVE (NONREACTIVE); 28KDIGG BAND REACTIVE (NONREACTIVE); 30KDIGG BAND NONREACTIVE (NONREACTIVE); 39KDIGG BAND REACTIVE (NONREACTIVE); 39KDIGM BAND NONREACTIVE (NONREACTIVE); 41KDIGG BAND REACTIVE (NONREACTIVE); 41KDIGM BAND NONREACTIVE (NONREACTIVE); 45KDIGG BAND REACTIVE (NONREACTIVE); 58KDIGG BAND REACTIVE (NONREACTIVE); 66KDIGG BAND REACTIVE (NONREACTIVE); 93KDIGG BAND REACTIVE (NONREACTIVE)
[2016-09-09] MEDS: FENTANYL CITRATE INJ 50 MCG/1 ML 2 ML VIAL IV PRN ×2 (14:50→14:55)
--- NOTE | 2016-09-09 14:54 | Anesthesiology Progress Note ---
Anesthesia Post Op Note Date & Time Sep 09, 2016 at 14:54 Vital Signs Pain Intensity: 3 Vital Signs Past 12 Hours Date Time Temp Pulse Resp B/P Pulse Ox O2 Delivery O2 Flow Rate FiO2 09/09/16 07:30 Room Air 09/09/16 07:14 36.7 69 16 138/92 97 Room Air Notes Mental Status: alert / awake / arousable, participated in evaluation Pt Amnestic to Procedure: Yes Nausea / Vomiting: adequately controlled Pain: adequately controlled Airway Patency, RR, SpO2: stable & adequate BP & HR: stable & adequate Hydration State: stable & adequate Anesthetic Complications: no major complications apparent
--- NOTE | 2016-09-09 14:55 | [facility] Post Operative Brief Note ---
Immediate Operative Summary Operative Date Sep 09, 2016. Pre-Operative Diagnosis Right knee Septic arthritis and effusion Post-Operative Diagnosis Right knee Septic Arthritis, Effusion, Synovitis Procedure(s) Performed Arthroscopic Irrigation and Debridement Right Knee, Synovectomy Surgeon Dr. Mina Wesley Tanning Salon Attendant Surgeon(s) None Estimated Blood Loss 10ml Findings See dict Specimens None per surgeon Drains HV x 1 Anesthesia GLMA Complication(s) None Disposition Recovery Room / PACU
[2016-09-09] MEDS: TRAMADOL HCL 50 MG TAB PO PRN (15:53)
[2016-09-09] MEDS: CEFTRIAXONE SOD INJ 2,000 MG in DEXTROSE 5% 50ML 50 ML IV SCH (15:54)
--- NOTE | 2016-09-09 17:27 | OPERATIVE REPORT ---
DATE OF OPERATION: 09/09/2016 PREOPERATIVE DIAGNOSES: 1. Septic arthritis right knee. 2. Effusion of the right knee. POSTOPERATIVE DIAGNOSES: Same. PROCEDURES: 1. Arthroscopic irrigation and debridement of the right knee. 2. Synovectomy of the knee. SURGEON: DO DAVID Rosa ASSISTANT: None. ANESTHESIA: General LMA. SPECIMENS: None. DRAINS: Hemovac x1. COMPLICATIONS: None. BLOOD LOSS: 10 mL. PERTINENT HISTORY: This is a 65-year-old gentleman with culture negative septic right knee with persistent pain in the knee, onset several days prior to first I\T\D. He had some improvements after the previous I\T\D; however, continued to have some continued drainage and effusion with medial-sided cellulitis extending slightly proximal into the thigh. This is improved somewhat within the thigh; however, the primary focus of infection appeared to be the knee. Therefore, he was scheduled for arthroscopic irrigation and debridement of the right knee. All potential risks, benefits, complications, alternatives, rehab, potential for incomplete relief of symptoms, need for further surgery, DVT, PE, , persistent pain, swelling, scarring, weakness, neurovascular injury, wound complications, need for further surgery, need for further I\T\D, DVT, PE, were discussed with patient. The patient decided to proceed with the procedure as indicated. DESCRIPTION OF PROCEDURE: The patient was taken to the operative suite and placed supine on the operating room table. I reviewed the consent and identification of proper operative site. The patient was anesthetized. LMA was placed. Tourniquet was placed high on the right thigh over cast padding. Right lower extremity was then sterilely prepped and draped in usual fashion, elevated and tourniquet inflated to 350 mmHg. There was no exsanguination performed due to the infection of the limb. Next, the previously placed sutures were then removed with a suture scissor and a hemostat followed by insertion of arthroscopic cannula in the inferolateral portal outflow on the superior medial portal and the inferomedial portal was then utilized for use with sucker shaver. Under direct visualization, sucker shaver was then used to debride the tissues of the capsule and the knee, and some hypertrophic synovium was noted. Synovectomy was performed throughout the knee joint beginning with the suprapatellar pouch, medial joint space, medial gutter, lateral joint space, lateral gutter until all was completely debrided. Nine liters of bacitracin-laden lavage solution was used and once this was completed, all excess fluid was expressed from the joint and the inferior portal sites were closed using interrupted 3-0 nylon sutures and the Hemovac 10-Czech drain was then placed through the superomedial portal. The drain was not sewn into the knee; however, the portal was closed superomedially with 3-0 nylon. Next, a sterile compressive dressing was applied overwrapped with ABD pads and an Dwaine wrap. The tourniquet was released. The patient was awakened and taken to recovery in stable condition. I attest to the content of the Intraoperative Record and any orders documented therein. Any exceptio ns are noted below.
--- NOTE | 2016-09-09 23:04 | Progress Note ---
Internal Med Progress Note Date of Service: Sep 09, 2016. Provider Documentation: SUBJECTIVE: continued to have pain and discomfort in rt inner thigh no fever or chills OBJECTIVE: Vital Signs-as noted below Exam: General-no sign of distress Eyes-sclera non icteric , PERRLA/EOMI ENT-NAD Neck-TRACHEA midline , no thyromegaly Lungs-CTA , no wheeze or rales Heart-regular S1/S2 Abdomen-sot, non tender Extremities-no rash or deformity ; rt knee bandage /drain present , + persisted erythema/swelling and tenderness on Rt inner upper thigh Neuro-no focal neurological deficit Lab data as noted below. ASSESSMENT & PLAN: INFECTED Right knee CT done showed Large joint effusion. Popliteal cyst which appears to extend cephalad at the posterior soft tissues of the thigh measuring 18 x 33 x 23 mm. Knee aspiration done by ortho Dr. York synovial fluid analysis shows no Crystals, WBC > 55 K suggestive of infected /septic joint appreciate Ortho eval underwent arthroscopic I&D of rt knee synovial fluid culture and gram stain 09/05/16 shows multiple WBC , no organism culture negative had repeat I&D with synovectomy today of rt knee ID following Lyme Ig G + ve , western blot + ve suggestive of Lyme arthritis -superimposed with cellulitis will D/c vancomycin cont IV Rocephin will need 2 weeks IV Abx will D/w ID plan for PICC line tomorrow D/w pt and , comfortable for home Iv Abx and PICC line management RT INNER THIGH PAIN : has ongoing pain /erythema extending form rt upper knee to inner thigh general surgery consulted MRI of lower ext shows: 1. 21 x 5 x 2 cm fluid collection within the posterior thigh located between the semimembranosus and abductor maría muscles. Given the clinical history this could represent an abscess surgery team updated regarding MRI finding given toady pain and discomfort improved on rt inner thigh no emergent indication for I&D D/w Ortho plan for continue IV abx for 2-3 weeks out pt imaging CT of lower ext to see improvement /resolution of fluid collection pt will be followed with ID team and Ortho as out pt if clinically symptom worsened /imaging shows unchanged or increased size of fluid while on IV abx pt need to re evaluated in hospital for I&D pt and in agreement with above option HYPERTENSION Continue Losartan Stable HYPOTHYROIDISM continue usual L thyroxine CHRONIC THROMBOCYTOPENIA follow CBC avoid antiplatelets CODE STATUS FULL CODE DVT PROPHYLAXIS scd and teds hold sub q heparin - surgical procedure /thrombocytopenia DISPOSITION possible discharge home in 1-2 days will order PICC Line tomorrow will need terminal carman 2-3 weeks of home Abx -IV Rocephin 1 gm daily Social service consulted for DC planning will update CM Vital Signs: Date Time Temp Pulse Resp B/P Pulse Ox O2 Delivery O2 Flow Rate FiO2 09/09/16 19:43 36.7 66 18 136/68 94 Room Air 09/09/16 18:42 Room Air 09/09/16 17:30 36.6 66 16 148/73 98 Room Air 09/09/16 16:30 36.4 57 18 167/89 100 Nasal Cannula 1.0 09/09/16 16:03 36.4 55 16 157/84 100 Nasal Cannula 2.0 09/09/16 16:00 Nasal Cannula 3.0 09/09/16 16:00 Nasal Cannula 3.0 09/09/16 15:30 36.3 65 18 164/88 99 Nasal Cannula 3.0 09/09/16 15:10 36.5 66 20 151/93 98 Nasal Cannula 3 09/09/16 15:00 62 20 144/86 98 Nasal Cannula 3 09/09/16 14:50 73 20 138/94 100 Mask 10 09/09/16 14:41 36.7 72 20 146/82 100 Mask 10 09/09/16 07:30 Room Air 09/09/16 07:14 36.7 69 16 138/92 97 Room Air 09/08/16 23:32 Room Air 09/08/16 23:03 36.9 65 16 157/77 97 Room Air Lab Results: Results Past 24 Hours Test 09/09/16 06:25 09/09/16 10:38 09/09/16 11:15 Range/Units White Blood Count 8.38 4.8-10.8 K/uL Red Blood Count 4.23 4.7-6.1 M/uL Hemoglobin 12.9 14.0-18.0 g/dL Hematocrit 37.7 42-52 % Mean Corpuscular Volume 89.1 80-100 fL Mean Corpuscular Hemoglobin 30.5 25-34 pg Mean Corpuscular Hemoglobin Concent 34.2 32-36 g/dl Platelet Count 242 130-400 K/uL Mean Platelet Volume 10.5 7.4-10.4 fL Neutrophils (%) (Auto) 71.0 % Lymphocytes (%) (Auto) 18.5 % Monocytes (%) (Auto) 7.6 % Eosinophils (%) (Auto) 2.3 % Basophils (%) (Auto) 0.5 % Neutrophils # (Auto) 5.95 1.4-6.5 K/uL Lymphocytes # (Auto) 1.55 1.2-3.4 K/uL Monocytes # (Auto) 0.64 0.11-0.59 K/uL Eosinophils # (Auto) 0.19 0-0.5 K/uL Basophils # (Auto) 0.04 0-0.2 K/uL RDW Standard Deviation 42.5 36.4-46.3 fL RDW Coefficient of Variation 13.1 11.5-14.5 % Immature Granulocyte % (Auto) 0.1 % Immature Granulocyte # (Auto) 0.01 0.00-0.02 K/uL Sodium Level 140 136-145 mmol/L Potassium Level 4.1 3.5-5.1 mmol/L Chloride Level 104 98-107 mmol/L Carbon Dioxide Level 28 21-32 mmol/L Anion Gap 8.0 3-11 mmol/L Blood Urea Nitrogen 13 7-18 mg/dl Creatinine 1.00 0.60-1.40 mg/dl Est Creatinine Clear Calc Drug Dose 80.7 ml/min Estimated GFR () 91.8 Estimated GFR (Non- 79.2 BUN/Creatinine Ratio 13.3 10-20 Random Glucose 128 70-99 mg/dl Calcium Level 8.9 8.5-10.1 mg/dl Rheumatoid Factor < 10.0 0-15 U/mL
[2016-09-10 03:44] VITALS: BP 131/77; PULSE 56; TEMP 36.6; O2SAT 98
[2016-09-10] MEDS ORDERED: VANCOMYCIN TROUGH SCH (05:30)
[2016-09-10 07:07] VITALS: BP 140/77; PULSE 60; TEMP 36.6; O2SAT 95
[2016-09-10 07:36] LABS: BASO % 0.2 %; BASO ABS # 0.02 K/uL (0-0.2); COMPLETE YES; EOS % 1.6 %; HEMATOCRIT 34.2 % (42-52); IG% 0.1 %; LYMPH % 17.7 %; LYMPH ABS # 1.44 K/uL (1.2-3.4); MEAN CELL VOLUME 88.4 fL (80-100); MEAN CORPUSCULAR HEMOGLOBIN 29.2 pg (25-34); MEAN PLATELET VOLUME 10.2 fL (7.4-10.4); MONO % 5.8 %; NEUT % 74.6 %; PLATELET COUNT 222 K/uL (130-400); RED BLOOD COUNT 3.87 M/uL (4.7-6.1); WHITE BLOOD COUNT 8.14 K/uL (4.8-10.8)
[2016-09-10 08:22] LABS: BUN/CREATININE RATIO 18.6 (10-20); CALCIUM 8.5 mg/dl (8.5-10.1); CREATININE 0.94 mg/dl (0.60-1.40); POTASSIUM 4.3 mmol/L (3.5-5.1)
[2016-09-10] MEDS: LOSARTAN POTASSIUM 50 MG TAB PO SCH (08:59)
[2016-09-10] MEDS: CEROVITE ADV FORMULA TAB PO SCH (08:59)
[2016-09-10 09:00] VITALS: BP 158/91; PULSE 60
--- NOTE | 2016-09-10 09:45 | Orthopedic Progress Note ---
Orthopedic Progress Note Date of Service Sep 10, 2016. Subjective Post OP Day: 1 Reports: feeling well, pain controlled w PO medications, Denies: SOB, calf pain , chest pain, complaints, light headedness, nausea / vomiting Objective calves soft nontender, N/V intact, capillary refill less than 2 sec., dressing C /D/I, A&O x3, toes mobile Date Time Temp Pulse Resp B/P Pulse Ox O2 Delivery O2 Flow Rate FiO2 09/10/16 09:00 60 158/91 09/10/16 07:07 36.6 60 19 140/77 95 Room Air 09/10/16 03:44 36.6 56 18 131/77 98 Room Air 09/10/16 00:15 Room Air 09/09/16 23:25 36.7 57 20 143/72 97 Room Air 09/09/16 19:43 36.7 66 18 136/68 94 Room Air 09/09/16 18:42 Room Air 09/09/16 17:30 36.6 66 16 148/73 98 Room Air 09/09/16 16:30 36.4 57 18 167/89 100 Nasal Cannula 1.0 09/09/16 16:03 36.4 55 16 157/84 100 Nasal Cannula 2.0 09/09/16 16:00 Nasal Cannula 3.0 09/09/16 16:00 Nasal Cannula 3.0 09/09/16 15:30 36.3 65 18 164/88 99 Nasal Cannula 3.0 09/09/16 15:10 36.5 66 20 151/93 98 Nasal Cannula 3 09/09/16 15:00 62 20 144/86 98 Nasal Cannula 3 09/09/16 14:50 73 20 138/94 100 Mask 10 09/09/16 14:41 36.7 72 20 146/82 100 Mask 10 Laboratory Results 24 Hours: Test 09/10/16 06:53 White Blood Count 8.14 K/uL Red Blood Count 3.87 M/uL Hemoglobin 11.3 g/dL Hematocrit 34.2 % Mean Corpuscular Volume 88.4 fL Mean Corpuscular Hemoglobin 29.2 pg Mean Corpuscular Hemoglobin Concent 33.0 g/dl Platelet Count 222 K/uL Mean Platelet Volume 10.2 fL Neutrophils (%) (Auto) 74.6 % Lymphocytes (%) (Auto) 17.7 % Monocytes (%) (Auto) 5.8 % Eosinophils (%) (Auto) 1.6 % Basophils (%) (Auto) 0.2 % Neutrophils # (Auto) 6.07 K/uL Lymphocytes # (Auto) 1.44 K/uL Monocytes # (Auto) 0.47 K/uL Eosinophils # (Auto) 0.13 K/uL Basophils # (Auto) 0.02 K/uL Assessment & Plan Assessment: POD #1, RIGHT KNEE ARTHROSCOPIC I&D, SYNOVECTOMY Plan: Continue IV anbx PER PRIMARY TEAM, ON CEFTRIAXONE Continue Hemovac drain WBAT RIGHT LE WILL GET PICC PER DR. JACKSON DISPOSITION PER PRIMARY TEAM. (1) Cellulitis of right leg Acute
--- NOTE | 2016-09-10 14:56 | Progress Note ---
Progress Note ATTENDING NOTE : D/W Mr Ahuja will order for PICC line today will need 2 weeks of IV Rocephin , out pt follow up with Orthopedics and ID team repeat CT of rt lower extremity before 2 weeks to see improvement of fluid collection in rt upper thigh may need extended IV ABx vs surgical drainage if clinically worsened or increase in size of fluid collection while on ABx pt is in agreement PICC line consent obtained plan for DC home with IV Rocephin 2 gm daily tomorrow for 14 days
[2016-09-10 15:38] VITALS: BP 154/89; PULSE 68; TEMP 36.8; O2SAT 97
[2016-09-10] MEDS: CEFTRIAXONE SOD INJ 2,000 MG in DEXTROSE 5% 50ML 50 ML IV SCH (16:31)
--- NOTE | 2016-09-10 18:32 | Progress Note ---
Internal Med Progress Note Date of Service: Sep 10, 2016. Provider Documentation: SUBJECTIVE: has PICC line placed already no pain or discomfort at PICC line placement site pain on rt inner thigh has improved minimum pain and swelling no fever or chills eager to be discharged home OBJECTIVE: Vital Signs-as noted below Exam: General-no sign of distress Eyes-sclera non icteric , PERRLA/EOMI ENT-NAD Neck-TRACHEA midline , no thyromegaly Lungs-CTA , no wheeze or rales Heart-regular S1/S2 Abdomen-sot, non tender Extremities-no rash or deformity ; rt knee bandage /drain present , improved erythema , swelling in rt inner thigh Neuro-no focal neurological deficit Lab data as noted below. ASSESSMENT & PLAN: INFECTED Right knee CT of lower ext Large joint effusion. Popliteal cyst which appears to extend cephalad at the posterior soft tissues of the thigh measuring 18 x 33 x 23 mm. Knee aspiration done by ortho Dr. York synovial fluid analysis shows no Crystals, WBC > 55 K suggestive of infected /septic joint appreciate Ortho eval underwent arthroscopic I&D of rt knee synovial fluid culture and gram stain 09/05/16 shows multiple WBC , no organism culture negative had repeat I&D with synovectomy today of rt knee ID following Lyme Ig G + ve , western blot + ve suggestive of Lyme arthritis -superimposed with cellulitis IV Rocephin will need 2 weeks IV Abx ID following PICC line placed D/w pt and , comfortable for home Iv Abx and PICC line management plan to D/c home tomorrow with IV Abx pt will be followed with Orthopedics service and ID as out pt RT INNER THIGH PAIN : has ongoing pain /erythema extending form rt upper knee to inner thigh general surgery consulted MRI of lower ext shows: 1. 21 x 5 x 2 cm fluid collection within the posterior thigh located between the semimembranosus and abductor maría muscles. Given the clinical history this could represent an abscess surgery team updated regarding MRI finding given pain and discomfort improved while on IV ABx on rt inner thigh no emergent indication for I&D D/w Ortho plan for continue IV abx for 2-3 weeks out pt imaging CT of lower ext to see improvement /resolution of fluid collection pt will be followed with ID team and Ortho as out pt if clinically symptom worsened /imaging shows unchanged or increased size of fluid while on IV abx pt need to re evaluated in hospital for I&D pt and in agreement with above option HYPERTENSION Continue Losartan Stable HYPOTHYROIDISM continue usual L thyroxine CHRONIC THROMBOCYTOPENIA follow CBC avoid antiplatelets CODE STATUS FULL CODE DVT PROPHYLAXIS scd and teds hold sub q heparin - surgical procedure /thrombocytopenia DISPOSITION possible discharge home in tomorrow will need half-way 2 weeks of home Abx -IV Rocephin 1 gm daily Social service consulted for DC planning Vital Signs: Date Time Temp Pulse Resp B/P Pulse Ox O2 Delivery O2 Flow Rate FiO2 09/11/16 07:07 36.9 69 18 151/78 98 Room Air 09/10/16 23:40 Room Air 09/10/16 23:05 36.7 77 18 149/73 97 Room Air 09/10/16 16:15 Room Air 09/10/16 15:38 36.8 68 16 154/89 97 Room Air 09/10/16 09:00 60 158/91 09/10/16 08:00 Room Air Lab Results:
[2016-09-10 23:05] VITALS: BP 149/73; PULSE 77; TEMP 36.7; O2SAT 97
[2016-09-11] MEDS: LEVOTHYROXINE 137 MCG TAB PO SCH (05:27)
[2016-09-11 07:07] VITALS: BP 151/78; PULSE 69; TEMP 36.9; O2SAT 98
[2016-09-11] MEDS ORDERED: OXYC-57 PO (08:01)
[2016-09-11] MEDS ORDERED: CEFT1INJ57 IV (08:01)
--- NOTE | 2016-09-11 08:08 | Discharge Instructions ---
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 (Alexandra Castillo M.D.) Instructions / Follow-Up Instructions / Follow-Up ORTHOPEDICS FOLLOW UP WITH DR JACKSON IN 2 WEEKS ID ( INFECTIOUS DISEASE FOLLOW UP ) IN 1-2 WEEKS , PLEASE CALL OFFICE FOR APPOINTMENT HOSPITAL FOLLOW UP WITH DR TANESHA BALLARD IN A WEEK , OFFICE WILL CALL WITH APPOINTMENT CT OF RT LOWER EXTREMITY WITH CONTRAST IN A WEEK TO ASSESS IMPROVEMENT OF RT UPPER THIGH CELLULITIS DISCONTINUE PICC LINE AFTER IV ANTIBIOTIC IS COMPLETE (Alexandra Castillo M.D.) Instructions / Follow-Up ACTIVITY RECOMMENDATIONS: * You may walk on the leg with or without crutches as comfort permits. * Bending of the knee should start at once. * Do not shower for 48 hours following surgery. SPECIAL CARE INSTRUCTIONS: * You may cleanse the skin adjacent to the small wounds with soap and water at the time of the first dressing change. * The application of an ice bag to the front and sides of the knee will decrease swelling and discomfort for the first 48 hours. * The small incisions may be sore and develop bruising. This bruising does not require any special care. SPECIAL PRECAUTIONS: * If you experience unusual pain unrelieved by prescriptions, temperature elevation (100 degrees F. or above) or progressive swelling or bleeding, you should contact our office at for further evaluation. * You may have been prescribed pain medication. If you experience nausea and/or fine skin rash, discontinue this medication and contact our office at for an alternate medication. DRESSING: * Dressing should be comfortable and absorb any leakage of fluid and/or blood. * The dressing may become moist or bloodstained. * Dressing may be removed 48 hours after surgery and bandaids placed over the small surgical incisions. If can be removed sooner if it becomes very soiled or loose. * Bandaids may be used over next several days as needed and can be discontinued when there is not further drainage from the wounds. FOLLOW UP VISIT: If appointment is not already scheduled: Please call [facility] [place] to make a follow-up appointment for 10 -14 days from the day of your surgery at . (Samuel RomoP.A.) Current Hospital Diet Patient's current hospital diet: AHA Diet (Heart Healthy) (Alexandra Castillo M.D.) Discharge Diet Recommended Diet: AHA Diet (Heart Healthy) (Alexandra Castillo M.D.) Procedures Procedures Performed: Arthroscopic Irrigation and Debridement Right Knee, Synovectomy (Alexandra Castillo M.D.) Pending Studies Studies pending at discharge: yes List of pending studies: CT OF RT LOWER EXTREMITY WITH CONTRAST IN 1 WEEK , PRIOR TO COMPLETION OF IV ANTIBIOTIC (Alexandra Castillo M.D.) Medical Emergencies . Who to Call and When: Medical Emergencies: If at any time you feel your situation is an emergency, please call 911 immediately. . (Alexandra Castillo M.D.) Non-Emergent Contact Non-Emergency issues call your: Primary Care Provider . (Alexandra Castillo M.D.) . "Provider Documentation" section prepared by Alexandra Castillo. (Alexandra Castillo M.D.) VTE Core Measure Inpt VTE Proph given/why not?: Lorenzo Gonzalez, SCD's (Alexandra Castillo M.D.) [place] Drug Monitoring Program Search Results: no issues identified (Alexandra Castillo M.D.)
[2016-09-11] MEDS: CEROVITE ADV FORMULA TAB PO SCH (08:37)
[2016-09-11] MEDS: LOSARTAN POTASSIUM 50 MG TAB PO SCH (08:38)
--- NOTE | 2016-09-11 09:29 | Orthopedic Progress Note ---
Orthopedic Progress Note Date of Service Sep 11, 2016. Subjective Reports: feeling well Additional Notes: Pt is s/p Arthroscopic I&D x 2. POD 2 from the most recent. Pt states he is feeling much better now. Swelling and erythema have gone considerably down. Thigh pain that he had earlier is now resolved. Hoping to go home today. Objective calves soft nontender, A&O x3, toes mobile Dressings removed. Drain taken out. Approx 25ml of drainage noted in HV reservoir that is serous in nature. No erythema of knee but knee still has some swelling to it. Pt states that it is decreased since he's been here. Better ROM of the knee with mild discomfort. Good SLR's. No pain in the medial thigh. No erythema noted at the medial thigh but the thigh continues to have some swelling compared to before. NT on palpation. Date Time Temp Pulse Resp B/P Pulse Ox O2 Delivery O2 Flow Rate FiO2 09/11/16 07:10 Room Air 09/11/16 07:07 36.9 69 18 151/78 98 Room Air 09/10/16 23:40 Room Air 09/10/16 23:05 36.7 77 18 149/73 97 Room Air 09/10/16 16:15 Room Air 09/10/16 15:38 36.8 68 16 154/89 97 Room Air Assessment & Plan Assessment: POD #2, RIGHT KNEE ARTHROSCOPIC I&D , SYNOVECTOMY Plan: Continue IV antibx PER PRIMARY TEAM, ON CEFTRIAXONE WBAT RIGHT LE PICC line in ARTHROSCOPY DISCHARGE INSTRUCTIONS PLACED IN DC TEMPLATE F/U WITH DR JACKSON IN 10-14 DAYS. OK FOR DC PER ORTHO. WILL ADD ASA 325MG TABLET DAILY FOR 2 WEEKS DISPOSITION PER PRIMARY TEAM. (1) Cellulitis of right leg Acute Inhouse Planning Pain Management: Percocet
[2016-09-11] MEDS ORDERED: ASPEC325 PO (09:30)
[2016-09-11] MEDS ORDERED: NURSING VERBAL MED ORDER ONE (11:45)
[2016-09-11 11:46] VITALS: BP 151/78; PULSE 69; TEMP 36.9; O2SAT 98
[2016-09-11] MEDS ORDERED: CEFTRIAXONE SOD INJ 2,000 MG in DEXTROSE 5% 50ML 50 ML IV SCH (12:00)
--- NOTE | 2016-09-11 20:56 | Discharge Summary ---
Discharge Summary Admission Date: Sep 05, 2016 at 04:48 Discharge Date: Sep 11, 2016 Discharge Disposition: Home Principal Diagnosis: LYME ARTHRITIS OF RT KNEE /CELLULITES OF RT UPPER THIGH Secondary Diagnoses/Problems: Medical Problems: (1) HTN (hypertension) Status: Chronic (2) Hypothyroidism Status: Chronic (3) Thrombocytopenia Status: Chronic Surgical Problems: (1) H/O: vasectomy Status: Chronic Procedures: Procedures Performed: Arthroscopic Irrigation and Debridement Right Knee, Synovectomy Consultations: Ortho ID Pending Studies/Follow-Up: ORTHOPEDICS FOLLOW UP WITH DR WESLEY IN 2 WEEKS ID ( INFECTIOUS DISEASE FOLLOW UP ) IN 1-2 WEEKS , PLEASE CALL OFFICE FOR APPOINTMENT HOSPITAL FOLLOW UP WITH DR TANESHA BALLARD IN A WEEK , OFFICE WILL CALL WITH APPOINTMENT CT OF RT LOWER EXTREMITY WITH CONTRAST IN A WEEK TO ASSESS IMPROVEMENT OF RT UPPER THIGH CELLULITIS DISCONTINUE PICC LINE AFTER IV ANTIBIOTIC IS COMPLETE Medication Reconciliation New Medications: Aspirin (Aspirin) 325 Mg Ectab 1 TAB PO DAILY for 14 Days Ceftriaxone Sod (Rocephin) 1 Gm Inj 2 GM IV DAILY for 10 Days, #10 VIAL Oxycodone/Acetaminophen 5MG/325MG (Percocet 5MG/325MG) Tab 1 TAB PO Q6H PRN for SEVERE PAIN, #30 TAB PAIN Continued Medications: Levothyroxine Sodium (Synthroid) 137 Mcg Tab 137 MCG PO DAILY Losartan Potassium (Cozaar) 50 Mg Tab 50 MG PO DAILY, TAB Multivitamins/Minerals (Mvi With Minerals) Tab 1 TAB PO DAILY, TAB [Testosterone Supp] () 1 TAB PO DAILY Referrals At Discharge Follow up Referrals: Physician Referral - Within 1-2 Weeks with Mina Wesley D.O. Physician Referral - Within 1-2 Weeks with Sara Blanco PA-C Admission Information HPI (per Admitting provider): 65 year old male with history of hypertension, hypothyroidism presenting with right posterior knee and thigh swelling and pain x 2 days. Patient was at his usual state of health until about 2 days ago when he started to notice pain and swelling on the posterior aspect of his left knee, which eventually progressed to the posterior thigh. He also notes fever with this. He denies having any trauma to the leg. Last tick bite noted last year. Progression of symptoms prompted ER consult. Patient was received at the ER febrile, tachycardic,(+) leukocytosis. CT right leg reveals collection at the popliteal to the posterior thigh region. Doppler US of the right leg: no DVT. He was given Ceftri + Doxy. On my exam, patient was resting in bed, pleasant. He states his pain on the right thigh is severe. Denies any testicular pain. No chest pain, palpitations, dizziness, nausea/vomiting, abdominal pain, dyspnea. No other symptoms. Physical Exam (per Admitting): General- adult , oriented x 3, not in distress, speaks in sentences with no effort Head- atraumatic Eyes- PERRL, EOMI, anicteric ENT- oropharynx clear Neck- supple, no JVD, no adenopathy, no thyromegaly Lungs- clear to auscultation bilaterally Heart-normal rate, regular rhythm; no murmur Abdomen- normal bowel sounds, soft, nontender Extremities- (+) right medial/posterior thigh edema, erythema, warmth, tenderness extending to right popliteal region left leg essentially normla Neuro- alert, oriented x 3; no gross focal deficits Skin- warm & dry Hospital Course INFECTED Right knee CT of lower ext Large joint effusion. Popliteal cyst which appears to extend cephalad at the posterior soft tissues of the thigh measuring 18 x 33 x 23 mm. Knee aspiration done by ortho Dr. York synovial fluid analysis shows no Crystals, WBC > 55 K suggestive of infected /septic joint appreciate Ortho estelita underwent arthroscopic I&D of rt knee synovial fluid culture and gram stain 09/05/16 shows multiple WBC , no organism culture negative had repeat I&D with synovectomy today of rt knee ID following Lyme Ig G + ve , western blot + ve suggestive of Lyme arthritis -superimposed with cellulitis IV Rocephin will need total 2 weeks IV Abx ID following PICC line placed arrangement made to out pt IV Rocephin at [facility] daily for 10 more remaining days ( home abx infusion could not be arrangement as pt does not have medical insurance /Self pay ) pt will be followed with Orthopedics service and ID as out pt repeat CT of rt lower ext in 1 weeks as out pt RT INNER THIGH PAIN : has ongoing pain /erythema extending form rt upper knee to inner thigh general surgery consulted MRI of lower ext shows: 1. 21 x 5 x 2 cm fluid collection within the posterior thigh located between the semimembranosus and abductor maría muscles. Given the clinical history this could represent an abscess surgery team updated regarding MRI finding given pain and discomfort improved while on IV ABx on rt inner thigh no emergent indication for I&D D/w Ortho pt will be treated with IV Rocephin for total 2 weeks out pt imaging CT of lower ext to see improvement /resolution of fluid collection pt will be followed with ID team and Ortho as out pt if clinically symptom worsened /imaging shows unchanged or increased size of fluid while on IV abx pt need to re evaluated in hospital for I&D pt and in agreement with above option HYPERTENSION Continue Losartan Stable HYPOTHYROIDISM continue usual L thyroxine CHRONIC THROMBOCYTOPENIA stable avoid antiplatelets CODE STATUS FULL CODE DVT PROPHYLAXIS scd and teds hold sub q heparin - surgical procedure /thrombocytopenia DISPOSITION discharge home in today Total time spent on discharge = 45 MINS This includes examination of the patient, discharge planning, medication reconciliation, and communication with other providers. Discharge Instructions Patient Name: Gerard Ahuja Unit Number: [id number] Date of : 1950 Patient Status: Discharged Inpatient Attending Doctor: Alexandra Castillo M.D. DI: Medical v4 Discharge Instructions Admission Reason for Admission: Sepsis (Alexandra Castillo M.D.) Discharge Discharge Diagnosis / Problem: LYME ARTHRITIS OF RT KNEE /CELLULITES OF RT UPPER THIGH (Alexandra Castillo M.D.) Discharge Goals Goal(s): Increase independence, Improve disease control, Diagnostic testing, Therapeutic intervention (Alexandra Castillo M.D.) Activity Recommendations Activity Limitations: as noted below ( TOLERATED , WT BEARING ON RT LEG TOLERATED ) Weightbearing Status: Right weightbearing (as tolerated) . (Alexandra Castillo M.D.) Instructions / Follow-Up Instructions / Follow-Up ORTHOPEDICS FOLLOW UP WITH DR WESLEY IN 2 WEEKS ID ( INFECTIOUS DISEASE FOLLOW UP ) IN 1-2 WEEKS , PLEASE CALL OFFICE FOR APPOINTMENT HOSPITAL FOLLOW UP WITH DR TANESHA BALLARD IN A WEEK , OFFICE WILL CALL WITH APPOINTMENT CT OF RT LOWER EXTREMITY WITH CONTRAST IN A WEEK TO ASSESS IMPROVEMENT OF RT UPPER THIGH CELLULITIS DISCONTINUE PICC LINE AFTER IV ANTIBIOTIC IS COMPLETE (Alexandra Castillo M.D.) Instructions / Follow-Up ACTIVITY RECOMMENDATIONS: * You may walk on the leg with or without crutches as comfort permits. * Bending of the knee should start at once. * Do not shower for 48 hours following surgery. SPECIAL CARE INSTRUCTIONS: * You may cleanse the skin adjacent to the small wounds with soap and water at the time of the first dressing change. * The application of an ice bag to the front and sides of the knee will decrease swelling and discomfort for the first 48 hours. * The small incisions may be sore and develop bruising. This bruising does not require any special care. SPECIAL PRECAUTIONS: * If you experience unusual pain unrelieved by prescriptions, temperature elevation (100 degrees F. or above) or progressive swelling or bleeding, you should contact our office at for further evaluation. * You may have been prescribed pain medication. If you experience nausea and/or fine skin rash, discontinue this medication and contact our office at for an alternate medication. DRESSING: * Dressing should be comfortable and absorb any leakage of fluid and/or blood. * The dressing may become moist or bloodstained. * Dressing may be removed 48 hours after surgery and bandaids placed over the small surgical incisions. If can be removed sooner if it becomes very soiled or loose. * Bandaids may be used over next several days as needed and can be discontinued when there is not further drainage from the wounds. FOLLOW UP VISIT: If appointment is not already scheduled: Please call [facility] [place] to make a follow-up appointment for 10 -14 days from the day of your surgery at . (Samuel Romo,P.A.) Current Hospital Diet Patient's current hospital diet: AHA Diet (Heart Healthy) (Alexandra Castillo M.D.) Discharge Diet Recommended Diet: AHA Diet (Heart Healthy) (Alexandra Castillo M.D.) Procedures Procedures Performed: Arthroscopic Irrigation and Debridement Right Knee, Synovectomy (Alexandra Castillo M.D.) Pending Studies Studies pending at discharge: yes List of pending studies: CT OF RT LOWER EXTREMITY WITH CONTRAST IN 1 WEEK , PRIOR TO COMPLETION OF IV ANTIBIOTIC (Alexandra Castillo M.D.) Medical Emergencies . Who to Call and When: Medical Emergencies: If at any time you feel your situation is an emergency, please call 911 immediately. . (Alexandra Castillo M.D.) Non-Emergent Contact Non-Emergency issues call your: Primary Care Provider . (Alexandra Castillo M.D.) . "Provider Documentation" section prepared by Alxeandra Castillo. (Alexandra Castillo M.D.) VTE Core Measure Inpt VTE Proph given/why not?: Lorenzo Gonzalez, SCD's (Alexandra Castillo M.D.) [place] Drug Monitoring Program Search Results: no issues identified (Alexandra Castillo M.D.) Additional Copies To Rosalva Ballard M.D. (MEDICAL) Sara Blanco ., [place]
[2016-09-14 14:53] LABS: CHLAMYDIA TRACH RNA*** NOT DETECTED (NOT DETECTED); GC (NEIS GONORRHOEAE)RNA** NOT DETECTED (NOT DETECTED)
== END 2016-09-11 15:30 | disposition home or self-care (01) | DRG 854 ==
LOC: CANRESERV → ENRESERVDT → ENRESERVTM → C.EDB 22:01 → C.MSN 09-05 04:48
PROVIDERS: ADMIT Internal Medicine; ATTEND Hospitalist
PROC: 0S9C3ZX Drainage of Right Knee Joint, Percutaneous Approach, Diagnostic (ICD-10-PCS; principal; 2016-09-05)
PROC: 0SBC4ZZ Excision of Right Knee Joint, Percutaneous Endoscopic Approach (ICD-10-PCS; 2016-09-06)
PROC: 0SBC4ZZ Excision of Right Knee Joint, Percutaneous Endoscopic Approach (ICD-10-PCS; 2016-09-09)
PROC: 02HV33Z Insertion of Infusion Device into Superior Vena Cava, Percutaneous Approach (ICD-10-PCS; 2016-09-10)
DX: A69.23 Arthritis due to Lyme disease (principal); L03.115 Cellulitis of right lower limb; I10 Essential (primary) hypertension; E03.9 Hypothyroidism, unspecified; D69.6 Thrombocytopenia, unspecified; Z79.899 Other long term (current) drug therapy

== ENCOUNTER 2017-03-24 14:15 | Emergency (ER) | payer OTHER ==
[~2017-03-24] VITALS: Ht 172.7 cm; Wt 89.7 kg
[~2017-03-24 14:15] MED LIST: ASPEC325 PO; LEVO-519 PO; LOSA50TA54 PO; MULT-513 PO; TESTOSTERONE SUPP PO
[2017-03-24 14:18] VITALS: TEMP 36.7; Ht 172.7 cm; Wt 89.7 kg
--- NOTE | 2017-03-24 15:47 | DIAGNOSTIC IMAGING REPORT ---
RIGHT KNEE 3 VIEWS CLINICAL HISTORY: Right knee pain and swelling. COMPARISON: Right knee radiographs August 30. FINDINGS: Alignment of the right knee is anatomic. No fracture or suspicious osseous lesion is identified. There is soft tissue swelling of the right knee. There is a possible right knee joint effusion. Joint spaces are preserved IMPRESSION: 1. No acute fracture. 2. Possible right knee joint effusion with soft tissue swelling of the right knee. Electronically signed by: Davon Ordaz M.D. 03/24/2017 3:46 PM Dictated Date/Time: 03/24/2017 3:44 PM
--- NOTE | 2017-03-24 16:22 | DIAGNOSTIC IMAGING REPORT ---
RIGHT VENOUS DOPP LOWER EXT UNILAT CLINICAL HISTORY: Right knee pain/swelling Right pain. Edema. TECHNIQUE: Venous Doppler COMPARISON STUDY: 09/04/2016 FINDINGS: No evidence for deep venous thrombosis. All major venous structures are unremarkable. 9 x 4 cm complex popliteal cyst posterior/nodule posterior to the right knee slightly diminished in maximum dimension compared to the prior study. The internal architecture of the potentially hemorrhagic popliteal fossa lesion is of concern. Orthopedic evaluation is suggested. IMPRESSION: 1. No evidence of deep venous thrombosis. 2. Solid/semisolid complex mass/hemorrhagic cyst posterior to the right knee. Although diminished in size from the prior study, its internal architecture is of some concern. Clinical or orthopedic follow-up is recommended. The above report was generated using voice recognition software. It may contain grammatical, syntax or spelling errors. Electronically signed by: Harry Thorpe M.D. 03/24/2017 4:21 PM Dictated Date/Time: 03/24/2017 4:17 PM
[2017-03-24 17:10] VITALS: BP 161/81; PULSE 71; O2SAT 96
--- NOTE | 2017-03-24 19:17 | EMERGENCY ROOM VISIT NOTE ---
History First contact with patient: 15:05 Chief Complaint: KNEEPAIN Stated Complaint: RIGHT KNEE History of Present Illness The patient is a 66 year old male who presents to the Emergency Room with complaints of right knee pain ongoing for the past several months. The patient states that his symptoms began the early part of this year when he was diagnosed with Lyme arthritis. He did have evaluation by orthopedics, and evidently had the joint drained. He was treated with antibiotics and had been doing fairly well. He has been following recently with his family doctor for ongoing pain in his right knee. He states that the pain is worse in the morning when he gets up and tries to walk. Over the course of the day the pain does worsen. He had been taking meloxicam for the past 3 weeks, however he has an upcoming prostate biopsy and had to discontinue NSAIDs and aspirin products. The patient states that he continues to have pain and swelling of this knee. No fevers, chills, chest pains, chest tightness, or shortness of breath. He does not have a history of DVT. There was discussion between him in orthopedics about removal of a large Be's cyst, but this has been put on hold pending more conservative measures. The patient rates his discomfort a 2/ 10 at rest and 6/10 with movement. No new injury or trauma that he can recall. Review of Systems More than 10 systems were reviewed and otherwise negative with the exception of history of present illness. Past Medical/Surgical History Medical Problems: (1) HTN (hypertension) (2) Hypothyroidism (3) Sepsis (4) Thrombocytopenia Surgical Problems: (1) H/O: vasectomy Family History Patient reports no known family medical history. Social History Smoking Status: Never Smoker Alcohol Use: none Drug Use: none Marital Status: Occupation Status: employed Current/Historical Medications Scheduled Levothyroxine Sodium (Synthroid), 137 MCG PO DAILY Losartan Potassium (Cozaar), 50 MG PO DAILY Multivitamins/Minerals (Mvi With Minerals), 1 TAB PO DAILY Allergies Coded Allergies: Penicillins (Verified Allergy, Unknown, ., 03/24/17) Physical Exam Vital Signs Date Time Temp Pulse Resp B/P (MAP) Pulse Ox O2 Delivery O2 Flow Rate FiO2 03/24/17 17:10 71 16 161/81 96 Room Air 03/24/17 15:30 61 15 157/78 96 03/24/17 14:18 36.7 68 15 171/94 95 Room Air Pain Rating (0-10): 4.0 Physical Exam VITALS: Vitals are noted on the nurse's note and reviewed by myself. Vital signs stable. GENERAL: Well-developed, well-nourished, white male, who is in no acute distress and resting comfortably. Patient is cooperative with the examination. HEAD: Normocephalic atraumatic. HEART: Regular rate and rhythm without murmurs gallops or rubs. LUNGS: Clear to auscultation bilaterally without wheezes, rales or rhonchi. No retractions or accessory muscle use. MUSCULOSKELETAL: The right knee is with some diffuse swelling. There is tenderness in the popliteal fossa without palpable cord throughout the right lower extremity. Neurovascular status is intact distally. Negative anterior/ posterior drawer. No laxity with varus valgus maneuvers. No obvious cellulitis. The patient is able to flex and extend the knee with full strength. NEURO: Patient was alert and oriented to person place and time. CN II through XII grossly intact. Deep tendon reflexes 2+ throughout. Medical Decision & Procedures ER Provider Diagnostic Interpretation: RIGHT KNEE 3 VIEWS CLINICAL HISTORY: Right knee pain and swelling. COMPARISON: Right knee radiographs August 30. FINDINGS: Alignment of the right knee is anatomic. No fracture or suspicious osseous lesion is identified. There is soft tissue swelling of the right knee. There is a possible right knee joint effusion. Joint spaces are preserved IMPRESSION: 1. No acute fracture. 2. Possible right knee joint effusion with soft tissue swelling of the right knee. RIGHT VENOUS DOPP LOWER EXT UNILAT CLINICAL HISTORY: Right knee pain/swelling Right pain. Edema. TECHNIQUE: Venous Doppler COMPARISON STUDY: 09/04/2016 FINDINGS: No evidence for deep venous thrombosis. All major venous structures are unremarkable. 9 x 4 cm complex popliteal cyst posterior/nodule posterior to the right knee slightly diminished in maximum dimension compared to the prior study. The internal architecture of the potentially hemorrhagic popliteal fossa lesion is of concern. Orthopedic evaluation is suggested. IMPRESSION: 1. No evidence of deep venous thrombosis. 2. Solid/semisolid complex mass/hemorrhagic cyst posterior to the right knee. Although diminished in size from the prior study, its internal architecture is of some concern. Clinical or orthopedic follow-up is recommended. ED Course Physical exam and history were performed. Nursing notes, EMR, and Medication List were personally reviewed. Patient appears to have right knee pain for the past several weeks. X-ray and ultrasound were performed. The x-ray does not show evidence of fracture or dislocation. There is some swelling which was appreciated on physical examination. The ultrasound does not show evidence of a DVT, however there appears to be a hemorrhagic cyst versus mass in the popliteal fossa. The patient does have tenderness in the area, and by history he has had a large Be's cyst in this region. Overall I discussed options of care with the patient. I did offer him crutches, knee brace, and pain medication, however he feels that an Dwaine wrap is sufficient as he has been able to ambulate on this. An Dwaine wrap was placed. The patient has an upcoming surgery and cannot take NSAIDs. He was asked to take Tylenol. He has followed with Dr. Wesley of [facility], and will be referred back to their service for further management. The patient was thoroughly invited back to the ER with any new, worsening, or concerning symptoms. The chart was completed utilizing [employer] Voice Recognition Software. Grammatical errors, random word insertions, pronoun errors, and incomplete sentences are an occasional consequence of this system due to software limitations, ambient noise, and hardware issues. Any formal questions or concerns about the content, text, or information contained within the body of this dictation should be directly addressed to the provider for clarification. . Medical Decision Differential diagnosis: Etiologies such as DVT, musculoskeletal, infection, joint effusion, trauma, lymphedema, idiopathic, CHF, as well as others were entertained.. Impression Primary Impression: Right knee pain Additional Impression: Hemorrhagic cyst Departure Information Dispostion Home / Self-Care Condition FAIR Referrals Mina Wesley D.O. Forms HOME CARE DOCUMENTATION FORM, IMPORTANT VISIT INFORMATION Patient Instructions My [facility] Additional Instructions You were seen and evaluated today on an emergency basis only. This is not a substitute for, or an effort to provide, complete comprehensive medical care. It is not possible to recognize and treat all injuries or illnesses in a single emergency department visit. For this reason it is recommended that you followup with [facility] , Dr. Wesley's office, by telephone to arrange a follow-up visit next week. Let them know you were seen in the ER to help make her appointment. Your ultrasound appears to show a hemorrhagic cyst. This does need orthopedic follow-up to ensure appropriate care. Wrap your knee for comfort. Rest and ice your knee as much as possible. You are welcome to return to the emergency department anytime with new, worsening, or concerning symptoms. Problem Qualifiers
== END 2017-03-24 17:36 | disposition home or self-care (01) ==
LOC: C.EDB 14:17 → C.EDD 17:36
DX: M71.21 Synovial cyst of popliteal space [Baker], right knee (principal); I10 Essential (primary) hypertension; E03.9 Hypothyroidism, unspecified; D69.49 Other primary thrombocytopenia; Z98.52 Vasectomy status; Z79.899 Other long term (current) drug therapy

== ENCOUNTER → 2017-03-30 | Outpatient (CLI) | payer OTHER ==
[~2017-03-30] MED LIST changes: -ASPEC325 PO; -TESTOSTERONE SUPP PO
== END | disposition home or self-care (01) ==
LOC: C.PATHSPEC 17:19
PROVIDERS: ATTEND Urology
DX: R97.20 Elevated prostate specific antigen [PSA] (principal); N41.1 Chronic prostatitis

== ENCOUNTER → 2018-01-10 | Outpatient (CLI) | payer OTHER ==
[2018-01-10 16:45] LABS: BLOOD UREA NITROGEN 20 mg/dl (7-18); CREATININE 1.23 mg/dl (0.60-1.40)
== END | disposition home or self-care (01) ==
LOC: C.LABBFT 14:24
PROVIDERS: ATTEND Urology
DX: D49.59 Neoplasm of unspecified behavior of other genitourinary organ (principal)

== ENCOUNTER → 2018-01-19 | Outpatient (CLI) | payer OTHER ==
[~2018-01-19] MED LIST changes: +GADAVIST IV PRN
--- NOTE | 2018-01-19 12:14 | DIAGNOSTIC IMAGING REPORT ---
PROSTATE MRI COMBO CLINICAL HISTORY: 67 years-old Male presenting with elevated PSA. PSA 7.24 ng/mL on 12/11/2017. TECHNIQUE: Multisequence, multiplanar MR imaging of the prostate was performed before and after the administration of intravenous contrast. Additional postprocessing was performed on a separate [employer] (formerly [employer]) workstation by the radiologist for 3-D volumetric segmentation of the prostate and contouring of region(s) of interest (LIANNE) for targeting. IV contrast: 9 mL of Gadavist. COMPARISON: None. FINDINGS: Prostate: The prostate measures 6.4 x 5.9 x 6.0 cm (DynaCAD prostate boundary segmentation volume 109 mL). PSA density (PSA/prostate volume): 0.066 ng/mL/mL. Severe changes of benign prostatic hyperplasia. Atrophy of the peripheral zone diffusely. Heterogeneous T2 signal intensity of the residual peripheral zone, which limits evaluation. Prominent exophytic BPH nodules noted at the base, some protruding into the peripheral zone. Precontrast T1 weighted imaging demonstrates no evidence of intrinsic T1 hyperintensity to suggest hemorrhage. No suspicious lesion is apparent in the transition or peripheral zones. Seminal vesicles atrophic. Bladder: Bladder wall thickening likely indicating chronic outlet obstruction. Bowel: Visualized portion of the rectum normal. Peritoneum: No free fluid in the pelvis. Lymph nodes: Prominent bilateral subcentimeter inguinal and external iliac lymph nodes. The largest node is on the right in the obturator region of the right external iliac jones chain measuring 7 mm in the short axis (series 4 image 52). These may be reactive. No pathologically enlarged lymph nodes by size criteria. Vasculature: Iliac vessels patent. Abdominal wall: Normal. Osseous structures: Normal bone marrow signal intensity. IMPRESSION: 1. No suspicious lesion in the transition or peripheral zones for targeted biopsy. 2. Benign prostatic hyperplasia. 3. Prominent bilateral inguinal and iliac lymph nodes may be reactive. Electronically signed by: Demetrio Bonds M.D. 01/19/2018 12:13 PM Dictated Date/Time: 01/19/2018 12:03 PM
== END | disposition home or self-care (01) ==
LOC: C.MRIBC 10:16
PROVIDERS: ATTEND Urology
DX: R97.20 Elevated prostate specific antigen [PSA] (principal)

== ENCOUNTER 2021-07-28 10:53 | Inpatient (IN) ==
[2021-07-28] MEDS ORDERED: SODIUM CHLORIDE 0.9% 250 ML IV PRN (11:12)
[2021-07-28] MEDS ORDERED: PANTOprazole 40 MG in SYRINGE 0 ML IV ONE (11:12)
--- NOTE | 2021-07-28 11:21 | Emergency Department Note ---
Impression & Plan Acute upper gastrointestinal bleeding, Anemia, Weakness, Thrombocytopenia, Chronic ITP (idiopathic thrombocytopenic purpura) ED Provider Note NAME: KISHA NIELSEN AGE: 70 SEX: M : 1950 ARRIVES VIA: Walk-In INFORMANT: Patient, ED PROVIDER(S): Dann Marks DO CHIEF COMPLAINT: Weakness HPI: The patient is a 70-year-old male who presented to emergency department for an evaluation of generalized weakness. The patient states that he has been having symptoms over the course the last few weeks. He initially was exposed to somebody with COVID-19 and thought his symptoms were from COVID-19 however the patient had a home test of COVID-19 which was negative. The patient went to see his family doctor yesterday for similar symptoms. At that time he had some blood work ordered because of dark stool. He was called today and told to come to the emergency department because his hemoglobin was significantly low. The patient himself does complain of some shortness of breath with exertion as well as generalized weakness. He denies having any vomiting. He is never had an upper GI work-up in the past. He currently does not notice any bloody bowel movements. He has had no vomiting. He denies having any chest pain. He denies having any swelling in his legs. ROS: See above HPI for pertinent positives & negatives. A total of 10 systems reviewed and were otherwise negative. PAST MEDICAL HISTORY: See Below PAST SURGICAL HISTORY: See Below FAMILY HISTORY: See Below SOCIAL HISTORY: See Below HOME MEDICATIONS: See Below ALLERGIES: See Below VITALS: See Below PHYSICAL EXAMINATION: GENERAL: The patient is awake and alert. He is nonanxious appearing. EYES: The conjunctivae are clear. The pupils are round and reactive. EARS, NOSE, MOUTH AND THROAT: The nose is without any evidence of any deformity. Mucous membranes are moist. Tongue is midline. NECK: The neck is nontender and supple. RESPIRATORY: Normal respiratory effort is noted there is no evidence of wheezing rhonchi or rales CARDIOVASCULAR: Regular rate and rhythm noted there no murmurs rubs or gallops normal S1 normal S2. GASTROINTESTINAL: The abdomen is soft and nondistended. There is no tenderness guarding or rigidity. Rectal exam revealed dark stool which was strongly heme positive. MUSCULOSKELETAL/EXTREMITIES: There is no evidence of gross deformity full range of motion is noted in the hips and shoulders. SKIN: skin was warm and dry. Trace pedal edema was noted bilaterally. NEUROLOGIC: Patient is awake alert and oriented x3. MEDICAL DECISION MAKING: The patient is a 70-year-old male who presented to the emergency department for an evaluation of upper GI bleeding. The patient has noted dark stool. He was ordered outpatient laboratory studies which revealed significant anemia. The patient was started on a blood transfusion in the emergency department. I discussed the patient's laboratory and radiographic studies with him. His anemia had significant symptoms with it. I discussed the patient's condition with the on-call [facility] hospitalist. Prior to evaluating the patient they did consult with hematology given the patient's history of ITP and they recommended that the patient be transferred to a tertiary center for further management given the ITP and is likely need for platelet transfusion IgG infusion as well as upper endoscopy. I discussed this with the patient and he was agreeable. Triage Nursing notes reviewed. Prior medical records reviewed Vital Signs: reviewed and remarkable for no significant abnormalities Differential diagnosis: Infection, dehydration, metabolic abnormality, hypo/hyperglycemia, electrolyte disturbance, anemia, hypoxia, cardiac sources, intracerebral event, toxicologic, neurologic, as well as other pathologies. ER treatment provided: See below Diagnostics interpreted by me: ECG: EKG was obtained in the emergency department. My interpretation is normal sinus rhythm at 62 bpm. There was no ectopy. Nonspecific ST segment abnormalities were noted. This was compared to a tracing from January 222000. No significant changes were noted. Cardiac Monitoring: An order was placed for continuous cardiac monitoring. The monitor shows a rate of 61 bpm with sinus rhythm. Laboratory studies: As stated above and show below. Imaging studies: See below Consultation(s): I discussed this case [facility]. I discussed this case with Dr Giron who was telephone answerer for medicine at [facility] [place] I discussed this case with Dr Lyn who was on for HEME/ONC at [facility] [place]. She does recommend decadron after the UGIB has been addressed. She also recommends we give IVIG 1 g/kg every day for 2 days. She recommends high-dose dexamethasone at 40 mg once the upper GI bleeding has been addressed. She recommends no platelet transfusion unless the patient were to develop hematochezia or worsening symptoms. ED COURSE: Procedures: none Critical Care: I have personally spent greater than 55 minutes of critical care time in the direct management of this patient. This includes bedside care, interpretation of diagnostic studies, and testing, discussion with consultants, patient, and family members, and other required patient management activities. This 55 minutes is in excess of all separately billable procedures. Past Med/Surg History Medical History Arthritis, septic, knee BPH (benign prostatic hyperplasia) Chronic ITP (idiopathic thrombocytopenic purpura) Diabetic neuropathy Effusion of knee Hemorrhagic cyst HTN (hypertension) Hypothyroidism Lyme arthritis Sepsis Type 2 diabetes mellitus Urinary symptom or sign Surgical History H/O: vasectomy History of lithotripsy Family History Other Family history unknown Social History Smoking Status: Never smoker Hx Alcohol Use: No Hx Substance Use: No Preferred Language: Greek marital status: Current Living Situation: Spouse current occupational status: employed Feels Safe at Home: Yes Allergies Allergies Allergy/AdvReac Type Severity Reaction Status Date / Time Penicillins Allergy Unknown . Verified 07/28/21 13:14 Home Meds Home Medications Medication Instructions Recorded Confirmed gabapentin 100 mg capsule 100 mg PO TID 07/28/21 07/28/21 levothyroxine 150 mcg tablet 150 mcg PO DAILY 07/28/21 07/28/21 losartan 100 1 tab PO DAILY 07/28/21 07/28/21 mg-hydrochlorothiazide 25 mg tablet metformin 500 mg tablet 500 mg PO BID 07/28/21 07/28/21 multivitamin with minerals 1 tab PO DAILY 07/28/21 07/28/21 Previous Rx's Medication Instructions Recorded pantoprazole 40 mg tablet,delayed 40 mg PO DAILY #10 tab 07/08/20 release dutasteride 0.5 mg capsule 0.5 mg PO DAILY #90 cap 06/02/21 (Avodart) tamsulosin 0.4 mg capsule 0.4 mg PO DAILY #90 cap 06/02/21 Results & Data (ED) Vital Signs Vital Signs - 24 hr 07/28/21 10:59 07/28/21 11:14 07/28/21 11:20 Temperature 36.5 C Temperature Source Oral Pulse Rate 104 H 69 78 Pulse Rate from SpO2 Sensor 69 Pulse Rhythm Pulse Strength Respiratory Rate 20 18 20 Respiratory Effort / Characteristics Non-Labored Spontaneous Respiratory Depth Normal Respiratory Pattern Regular Blood Pressure 127/66 152/79 H Blood Pressure Mean 86 103 Blood Pressure Position Sitting Pulse Oximetry 98 100 100 Oxygen Delivery Method Room Air Room Air Sepsis Recent Fever Within 48 Hours No Sepsis New/Unexplained Change in Mental Status No Sepsis Action Taken by Nursing No Action Required 07/28/21 11:24 07/28/21 11:30 07/28/21 11:40 Temperature Temperature Source Pulse Rate 62 65 63 Pulse Rate from SpO2 Sensor 65 63 Pulse Rhythm Regular Pulse Strength Respiratory Rate 17 20 15 Respiratory Effort / Characteristics Respiratory Depth Respiratory Pattern Blood Pressure 155/82 H Blood Pressure Mean 106 Blood Pressure Position Pulse Oximetry 100 100 100 Oxygen Delivery Method Room Air Sepsis Recent Fever Within 48 Hours Sepsis New/Unexplained Change in Mental Status Sepsis Action Taken by Nursing 07/28/21 11:50 07/28/21 12:00 07/28/21 12:10 Temperature Temperature Source Pulse Rate 66 62 60 Pulse Rate from SpO2 Sensor 66 59 L Pulse Rhythm Pulse Strength Respiratory Rate 20 19 15 Respiratory Effort / Characteristics Respiratory Depth Respiratory Pattern Blood Pressure Blood Pressure Mean Blood Pressure Position Pulse Oximetry 100 100 100 Oxygen Delivery Method Room Air Room Air Sepsis Recent Fever Within 48 Hours Sepsis New/Unexplained Change in Mental Status Sepsis Action Taken by Nursing 07/28/21 12:20 07/28/21 12:30 07/28/21 12:40 Temperature Temperature Source Pulse Rate 59 L 71 62 Pulse Rate from SpO2 Sensor 59 L 67 61 Pulse Rhythm Pulse Strength Respiratory Rate 17 24 15 Respiratory Effort / Characteristics Respiratory Depth Respiratory Pattern Blood Pressure Blood Pressure Mean Blood Pressure Position Pulse Oximetry 100 96 100 Oxygen Delivery Method Room Air Sepsis Recent Fever Within 48 Hours Sepsis New/Unexplained Change in Mental Status Sepsis Action Taken by Nursing 07/28/21 12:50 07/28/21 12:52 07/28/21 13:00 Temperature 36.7 C Temperature Source Oral Pulse Rate 64 98 H 58 L Pulse Rate from SpO2 Sensor 65 63 Pulse Rhythm Regular Pulse Strength Normal Respiratory Rate 20 16 20 Respiratory Effort / Characteristics Respiratory Depth Respiratory Pattern Blood Pressure 161/87 H 162/67 H Blood Pressure Mean 111 98 Blood Pressure Position Pulse Oximetry 100 100 100 Oxygen Delivery Method Room Air Room Air Sepsis Recent Fever Within 48 Hours Sepsis New/Unexplained Change in Mental Status Sepsis Action Taken by Nursing 07/28/21 13:10 07/28/21 13:12 07/28/21 13:20 Temperature 37.0 C Temperature Source Oral Pulse Rate 58 L 61 59 L Pulse Rate from SpO2 Sensor 58 L 60 Pulse Rhythm Regular Pulse Strength Normal Respiratory Rate 17 19 18 Respiratory Effort / Characteristics Respiratory Depth Respiratory Pattern Blood Pressure 151/85 H Blood Pressure Mean 107 Blood Pressure Position Sitting Pulse Oximetry 98 100 92 Oxygen Delivery Method Room Air Sepsis Recent Fever Within 48 Hours Sepsis New/Unexplained Change in Mental Status Sepsis Action Taken by Nursing 07/28/21 13:27 07/28/21 13:30 07/28/21 13:40 Temperature 37.0 C Temperature Source Oral Pulse Rate 60 61 60 Pulse Rate from SpO2 Sensor 61 59 L Pulse Rhythm Regular Pulse Strength Normal Respiratory Rate 16 16 16 Respiratory Effort / Characteristics Respiratory Depth Respiratory Pattern Blood Pressure 164/109 H 128/75 Blood Pressure Mean 127 92 Blood Pressure Position Pulse Oximetry 100 100 100 Oxygen Delivery Method Room Air Sepsis Recent Fever Within 48 Hours Sepsis New/Unexplained Change in Mental Status Sepsis Action Taken by Nursing 07/28/21 13:50 07/28/21 13:57 07/28/21 14:00 Temperature 37.0 C Temperature Source Oral Pulse Rate 60 63 66 Pulse Rate from SpO2 Sensor 60 66 Pulse Rhythm Regular Pulse Strength Normal Respiratory Rate 20 19 20 Respiratory Effort / Characteristics Respiratory Depth Respiratory Pattern Blood Pressure 155/86 H 149/88 H Blood Pressure Mean 109 108 Blood Pressure Position Sitting Pulse Oximetry 100 100 100 Oxygen Delivery Method Room Air Sepsis Recent Fever Within 48 Hours Sepsis New/Unexplained Change in Mental Status Sepsis Action Taken by Nursing 07/28/21 14:10 07/28/21 14:20 07/28/21 14:30 Temperature Temperature Source Pulse Rate 63 66 60 Pulse Rate from SpO2 Sensor 63 67 Pulse Rhythm Pulse Strength Respiratory Rate 19 18 20 Respiratory Effort / Characteristics Respiratory Depth Respiratory Pattern Blood Pressure Blood Pressure Mean Blood Pressure Position Pulse Oximetry 100 100 100 Oxygen Delivery Method Room Air Room Air Sepsis Recent Fever Within 48 Hours Sepsis New/Unexplained Change in Mental Status Sepsis Action Taken by Nursing 07/28/21 14:40 07/28/21 14:50 07/28/21 14:57 Temperature 37.1 C Temperature Source Oral Pulse Rate 65 68 61 Pulse Rate from SpO2 Sensor 67 68 Pulse Rhythm Regular Pulse Strength Normal Respiratory Rate 18 17 20 Respiratory Effort / Characteristics Respiratory Depth Respiratory Pattern Blood Pressure 133/71 Blood Pressure Mean 91 Blood Pressure Position Sitting Pulse Oximetry 100 100 100 Oxygen Delivery Method Sepsis Recent Fever Within 48 Hours Sepsis New/Unexplained Change in Mental Status Sepsis Action Taken by Nursing 07/28/21 15:00 07/28/21 15:15 07/28/21 15:20 Temperature Temperature Source Pulse Rate 61 61 58 L Pulse Rate from SpO2 Sensor 60 62 59 L Pulse Rhythm Pulse Strength Respiratory Rate 15 20 19 Respiratory Effort / Characteristics Respiratory Depth Respiratory Pattern Blood Pressure Blood Pressure Mean Blood Pressure Position Pulse Oximetry 100 97 100 Oxygen Delivery Method Room Air Sepsis Recent Fever Within 48 Hours Sepsis New/Unexplained Change in Mental Status Sepsis Action Taken by Nursing 07/28/21 15:30 07/28/21 15:40 07/28/21 15:49 Temperature 36.8 C Temperature Source Oral Pulse Rate 59 L 57 L 60 Pulse Rate from SpO2 Sensor 59 L 58 L Pulse Rhythm Pulse Strength Respiratory Rate 21 16 19 Respiratory Effort / Characteristics Respiratory Depth Respiratory Pattern Blood Pressure 145/72 H 136/74 Blood Pressure Mean 96 94 Blood Pressure Position Sitting Pulse Oximetry 100 100 100 Oxygen Delivery Method Sepsis Recent Fever Within 48 Hours Sepsis New/Unexplained Change in Mental Status Sepsis Action Taken by [facility] Medications Current Medication List: was personally reviewed by me Laboratory Data Attestation: I reviewed the patient's lab results. Result diagrams: 07/28/21 11:15 07/28/21 11:15 Lab Results 07/28/21 07/28/21 07/28/21 Range/Units 11:15 11:15 11:15 WBC 3.59 L (4.8-10.8) K/uL RBC 2.26 L (4.7-6.1) M/uL Hgb 6.2 L* (14.0-18.0) g/dL Hct 20.4 L* (42-52) % MCV 90.3 (80-100) fL MCH 27.4 (25-34) pg MCHC 30.4 L (32-36) g/dL RDW Std Deviation 46.7 H (36.4-46.3) fL RDW Coeff of Jessica 14.2 (11.5-14.5) % Plt Count 2 L* (130-400) K/uL Immature Gran % (Auto) 0.3 % Neut % (Auto) 70.6 % Lymph % (Auto) 20.3 % [place] % (Auto) 6.1 % Eos % (Auto) 1.9 % Baso % (Auto) 0.8 % Neut # (Auto) 2.53 (1.4-6.5) K/uL Lymph # (Auto) 0.73 L (1.2-3.4) K/uL [place] # (Auto) 0.22 (0.11-0.59) K/uL Eos # (Auto) 0.07 (0-0.5) K/uL Baso # (Auto) 0.03 (0-0.2) K/uL Immature Gran # (Auto) 0.01 (0.00-0.02) K/uL PT 10.0 (9.0-12.0) Seconds INR 1.0 (0.9-1.1) APTT 20.2 L (21.0-31.0) Seconds PTT Ratio 0.8 Sodium (136-145) mmol/L Potassium (3.5-5.1) mmol/L Chloride (98-107) mmol/L Carbon Dioxide (21-32) mmol/L Anion Gap (3-11) BUN (7-18) mg/dl Creatinine (0.6-1.4) mg/dl Est Cr Clr Drug Dosing ml/min Est GFR ( Amer) ml/min Est GFR (Non-Af Amer) ml/min BUN/Creatinine Ratio (10-20) Glucose (70-99) mg/dl Calcium (8.5-10.1) mg/dl Total Bilirubin (0.2-1) mg/dl AST (15-37) U/L ALT (12-78) U/L Alkaline Phosphatase (45-117) U/L Troponin I (0-0.045) ng/ml Total Protein (6.4-8.2) gm/dl Albumin (3.4-5.0) gm/dl Globulin (2.5-4.0) gm/dl Albumin/Globulin Ratio (0.9-2) Lipase (73-393) U/L Urine Color Urine Appearance (Clear) Urine pH (4.5-7.5) Ur Specific [place] (1.000-1.030) Urine Protein (Negative) Urine Glucose (UA) (Negative) Urine Ketones (Negative) Urine Blood (Negative) Urine Nitrite (Negative) Urine Bilirubin (Negative) Urine Urobilinogen (Negative) Ur Leukocyte Esterase (Negative) Urine WBC (Auto) (0-5) /hpf Urine RBC (Auto) (0-4) /hpf U Hyaline Cast (Auto) (0-5) /lpf U Epithel Cells (Auto) (0-5) /lpf Urine Bacteria (Auto) (Negative) COVID-19 Eval Order SARS-CoV-2 (PCR) (Negative) Blood Type A Positive Blood Type Recheck Antibody Screen NEGATIVE Crossmatch See Detail 07/28/21 07/28/21 07/28/21 Range/Units 11:15 11:24 11:24 WBC (4.8-10.8) K/uL RBC (4.7-6.1) M/uL Hgb (14.0-18.0) g/dL Hct (42-52) % MCV (80-100) fL MCH (25-34) pg MCHC (32-36) g/dL RDW Std Deviation (36.4-46.3) fL RDW Coeff of Jessica (11.5-14.5) % Plt Count (130-400) K/uL Immature Gran % (Auto) % Neut % (Auto) % Lymph % (Auto) % [place] % (Auto) % Eos % (Auto) % Baso % (Auto) % Neut # (Auto) (1.4-6.5) K/uL Lymph # (Auto) (1.2-3.4) K/uL [place] # (Auto) (0.11-0.59) K/uL Eos # (Auto) (0-0.5) K/uL Baso # (Auto) (0-0.2) K/uL Immature Gran # (Auto) (0.00-0.02) K/uL PT (9.0-12.0) Seconds INR (0.9-1.1) APTT (21.0-31.0) Seconds PTT Ratio Sodium 138 (136-145) mmol/L Potassium 4.1 (3.5-5.1) mmol/L Chloride 108 H (98-107) mmol/L Carbon Dioxide 23 (21-32) mmol/L Anion Gap 7.0 (3-11) BUN 18 (7-18) mg/dl Creatinine 0.88 (0.6-1.4) mg/dl Est Cr Clr Drug Dosing 76.6 ml/min Est GFR ( Amer) 101.6 ml/min Est GFR (Non-Af Amer) 87.6 ml/min BUN/Creatinine Ratio 20.2 H (10-20) Glucose 147 H (70-99) mg/dl Calcium 8.7 (8.5-10.1) mg/dl Total Bilirubin 0.3 (0.2-1) mg/dl AST 23 (15-37) U/L ALT 36 (12-78) U/L Alkaline Phosphatase 53 (45-117) U/L Troponin I < 0.015 (0-0.045) ng/ml Total Protein 6.5 (6.4-8.2) gm/dl Albumin 3.3 L (3.4-5.0) gm/dl Globulin 3.2 (2.5-4.0) gm/dl Albumin/Globulin Ratio 1.0 (0.9-2) Lipase 217 (73-393) U/L Urine Color Urine Appearance (Clear) Urine pH (4.5-7.5) Ur Specific [place] (1.000-1.030) Urine Protein (Negative) Urine Glucose (UA) (Negative) Urine Ketones (Negative) Urine Blood (Negative) Urine Nitrite (Negative) Urine Bilirubin (Negative) Urine Urobilinogen (Negative) Ur Leukocyte Esterase (Negative) Urine WBC (Auto) (0-5) /hpf Urine RBC (Auto) (0-4) /hpf U Hyaline Cast (Auto) (0-5) /lpf U Epithel Cells (Auto) (0-5) /lpf Urine Bacteria (Auto) (Negative) COVID-19 Eval Order Covid19 at [facility] SARS-CoV-2 (PCR) POSITIVE A* (Negative) Blood Type Blood Type Recheck Antibody Screen Crossmatch 07/28/21 07/28/21 Range/Units 11:35 Unknown WBC (4.8-10.8) K/uL RBC (4.7-6.1) M/uL Hgb (14.0-18.0) g/dL Hct (42-52) % MCV (80-100) fL MCH (25-34) pg MCHC (32-36) g/dL RDW Std Deviation (36.4-46.3) fL RDW Coeff of Jessica (11.5-14.5) % Plt Count (130-400) K/uL Immature Gran % (Auto) % Neut % (Auto) % Lymph % (Auto) % [place] % (Auto) % Eos % (Auto) % Baso % (Auto) % Neut # (Auto) (1.4-6.5) K/uL Lymph # (Auto) (1.2-3.4) K/uL [place] # (Auto) (0.11-0.59) K/uL Eos # (Auto) (0-0.5) K/uL Baso # (Auto) (0-0.2) K/uL Immature Gran # (Auto) (0.00-0.02) K/uL PT (9.0-12.0) Seconds INR (0.9-1.1) APTT (21.0-31.0) Seconds PTT Ratio Sodium (136-145) mmol/L Potassium (3.5-5.1) mmol/L Chloride (98-107) mmol/L Carbon Dioxide (21-32) mmol/L Anion Gap (3-11) BUN (7-18) mg/dl Creatinine (0.6-1.4) mg/dl Est Cr Clr Drug Dosing ml/min Est GFR ( Amer) ml/min Est GFR (Non-Af Amer) ml/min BUN/Creatinine Ratio (10-20) Glucose (70-99) mg/dl Calcium (8.5-10.1) mg/dl Total Bilirubin (0.2-1) mg/dl AST (15-37) U/L ALT (12-78) U/L Alkaline Phosphatase (45-117) U/L Troponin I (0-0.045) ng/ml Total Protein (6.4-8.2) gm/dl Albumin (3.4-5.0) gm/dl Globulin (2.5-4.0) gm/dl Albumin/Globulin Ratio (0.9-2) Lipase (73-393) U/L Urine Color Yellow Urine Appearance Clear (Clear) Urine pH 5.5 (4.5-7.5) Ur Specific [place] 1.006 (1.000-1.030) Urine Protein Negative (Negative) Urine Glucose (UA) Negative (Negative) Urine Ketones Negative (Negative) Urine Blood Trace H (Negative) Urine Nitrite Negative (Negative) Urine Bilirubin Negative (Negative) Urine Urobilinogen Negative (Negative) Ur Leukocyte Esterase Negative (Negative) Urine WBC (Auto) 0 (0-5) /hpf Urine RBC (Auto) 0-4 (0-4) /hpf U Hyaline Cast (Auto) 0 (0-5) /lpf U Epithel Cells (Auto) 0-5 (0-5) /lpf Urine Bacteria (Auto) Negative (Negative) COVID-19 Eval Order SARS-CoV-2 (PCR) (Negative) Blood Type Blood Type Recheck A Positive Antibody Screen Crossmatch Administered Medications Discontinued Medications Pantoprazole Sodium 40 mg/ (Syringe) 10 mls @ 5 mls/min IV NOW ONE Stop: 07/28/21 11:13 Last Admin: 07/28/21 11:28 Dose: 5 mls/min Documented by: [id number] Famotidine (Pepcid 20mg Iv Push) 20 mg in 5 mls @ 2.5 mls/min IV NOW STA Stop: 07/28/21 15:42 Last Admin: 07/28/21 15:46 Dose: 2.5 mls/min Documented by: [id number] Imaging Data Radiologist's Impression: Chest X-Ray 07/28/21 11:12 SINGLE VIEW CHEST CLINICAL HISTORY: Dyspnea. FINDINGS: An AP, portable, upright chest radiograph is obtained. No prior studies are available for comparison at the time of dictation. The cardiomediastinal silhouette is top normal for projection. There is mild bib asilar atelectasis. The lung and pleural spaces are otherwise clear. No pneumothorax is seen. The bony thorax is grossly intact. IMPRESSION: No active disease in the chest. ACT 112: Negative or not required by law. Electronically signed by: Valdemar Carvajal M.D. 07/28/2021 11:35 AM Discharge Plan Visit Data Chief Complaint: Abnormal Labs/Diagnostic Testing Stated Complaint: HEMOGLOBLIN 5.9/REFERRED BY DR AUGUST Provider: Dann Marks Discharge Problem: Acute upper gastrointestinal bleeding, Anemia, Weakness, Thrombocytopenia, Retail Customer Service Representative bernard ITP (idiopathic thrombocytopenic purpura) Patient Disposition: Transfer Acute Care Hospital Forms Stand Alone Forms: [facility] Prescriptions Prescriptions: No Action dutasteride [Avodart] 0.5 mg capsule 0.5 mg PO DAILY Qty: 90 RF: 3 tamsulosin 0.4 mg capsule 0.4 mg PO DAILY Qty: 90 RF: 3 pantoprazole 40 mg tablet,delayed release (DR/EC) 40 mg PO DAILY Qty: 10 RF: 0 metformin 500 mg tablet 500 mg PO BID RF: 0 losartan-hydrochlorothiazide 100-25 mg tablet 1 tab PO DAILY RF: 0 levothyroxine 150 mcg tablet 150 mcg PO DAILY RF: 0 gabapentin 100 mg capsule 100 mg PO TID RF: 0 multivitamin with minerals Tablet 1 tab PO DAILY RF: 0 Referrals Referrals: Matt Neely MD [Primary Care Provider] - Discharge Problem: Anemia Qualifiers: Anemia type: unspecified type Qualified Code(s): D64.9 - Anemia, unspecified
--- NOTE | 2021-07-28 11:36 | XRay Report ---
SINGLE VIEW CHEST CLINICAL HISTORY: Dyspnea. FINDINGS: An AP, portable, upright chest radiograph is obtained. No prior studies are available for c omparison at the time of dictation. The cardiomediastinal silhouette is top normal for projection. T here is mild bibasilar atelectasis. The lung and pleural spaces are otherwise clear. No pneumothorax is seen. The bony thorax is grossly intact. IMPRESSION: No active disease in the chest. ACT 112: Negative or not required by law. Electronically signed by: Valdemar Carvajal M.D. 07/28/2021 11:35 AM
[2021-07-28 11:41] LABS: Alanine Aminotransferase 36 U/L (12-78); Albumin Level 3.3 gm/dl (3.4-5.0); Aspartate Aminotransferase 23 U/L (15-37); BUN Creatinine Ratio 20.2 (10-20); Blood Urea Nitrogen 18 mg/dl (7-18); Calcium 8.7 mg/dl (8.5-10.1); Carbon Dioxide 23 mmol/L (21-32); Chloride 108 mmol/L (98-107); Creatinine Clr Calc Pharmacy 76.6 ml/min; Est GFR (African American) 101.6 ml/min; Est GFR (Non-African American) 87.6 ml/min; Glucose 147 mg/dl (70-99); Lipase 217 U/L (73-393); Potassium 4.1 mmol/L (3.5-5.1); Sodium 138 mmol/L (136-145)
[2021-07-28 11:46] LABS: Alkaline Phosphatase 53 U/L (45-117); Bilirubin,Total 0.3 mg/dl (0.2-1); Globulin 3.2 gm/dl (2.5-4.0); Total Protein 6.5 gm/dl (6.4-8.2); Troponin I < 0.015 ng/ml (0-0.045)
[2021-07-28 11:47] LABS: Appearance Urine Clear (Clear); Bacteria Urine Automated Negative (Negative); Bilirubin Urine Negative (Negative); Blood Urine Trace (Negative); Cast Urine Automated 0 /lpf (0-5); Color Urine Yellow; Epithelial Cell Urine Auto 0-5 /lpf (0-5); Glucose Urine UA Negative (Negative); Ketones Urine Negative (Negative); Leukocyte Esterase Urine Negative (Negative); Nitrite Urine Negative (Negative); Protein Urine Negative (Negative); RBC Urine Automated 0-4 /hpf (0-4); Specific Gravity Urine 1.006 (1.000-1.030); Urobilinogen Urine Negative (Negative); WBC Urine Automated 0 /hpf (0-5); pH Urine 5.5 (4.5-7.5)
[2021-07-28 11:55] LABS: Hematocrit (blood only) 20.4 % (42-52); Hemoglobin 6.2 g/dL (14.0-18.0); Mean Corpuscular Hemoglobin 27.4 pg (25-34); Mean Corpuscular Hgb Conc 30.4 g/dL (32-36); Mean Corpuscular Volume 90.3 fL (80-100); Platelet Count 2 K/uL (130-400); RDW Coefficient of Variation 14.2 % (11.5-14.5); RDW Standard Deviation 46.7 fL (36.4-46.3); Red Blood Count 2.26 M/uL (4.7-6.1); White Blood Count 3.59 K/uL (4.8-10.8)
[2021-07-28 11:58] LABS: Basophils # (auto) 0.03 K/uL (0-0.2); Basophils % (auto) 0.8 %; Eosinophils # (auto) 0.07 K/uL (0-0.5); Eosinophils % (auto) 1.9 %; Immature Granulocytes # (auto) 0.01 K/uL (0.00-0.02); Immature Granulocytes % (auto) 0.3 %; Lymphocytes # (auto) 0.73 K/uL (1.2-3.4); Lymphocytes % (auto) 20.3 %; Monocytes # (auto) 0.22 K/uL (0.11-0.59); Monocytes % (auto) 6.1 %; Neutrophils # (auto) 2.53 K/uL (1.4-6.5); Neutrophils % (auto) 70.6 %
[2021-07-28 14:31] LABS: Partial Thromboplastin Ratio 0.8; Partial Thromboplastin Time 20.2 Seconds (21.0-31.0)
--- NOTE | 2021-07-28 15:32 | Hospitalist Consultation ---
Date of Consultation July 28, 2021 Assessment & Plan (1) Acute upper gastrointestinal bleeding: (2) Anemia: (3) Weakness: (4) Chronic ITP (idiopathic thrombocytopenic purpura): (5) Type 2 diabetes mellitus: (6) Diabetic neuropathy: (7) HTN (hypertension): (8) Hypothyroidism: (9) BPH (benign prostatic hyperplasia): The case was discussed with hematology (Dr. Hever Clark) and gastroenterology (Joe ZAMORA/Dr. Carias) who both recommend transfer for higher level of care. Initially pt declined transfer when he spoke with the ED provider so we were consulted to discuss admission here vs. transfer. Upon further conversation with the pt including an explanation of the reasons for the transfer, pt was agreeable. Hematology recommended the following: - IV Solu-Medrol 200 mg IV/day for 4 days - IV Immunoglobulin 1 gram/kg for 2 days - IV Protonix gtt - Platelet transfusion. Currently there are only two units of platelets available in the blood bank at [facility]. If transfer delayed, consider initiating platelet transfusion here. Mary Chiu PA-C History of Present Illness Reason for Consultation: evaluate for admission Requesting Physician: Dr. Marks Attending Physician: Dr. Marks History of Present Illness This is a 70 y/o male with a PMH of chronic ITP, HTN, hypothyroidism, DM with associated neuropathy, and BPH who presents to the ED today after being referred from his PCP office due to outpatient labs showing a Hgb of 5.9. Pt has a history of ITP for more than twenty years for which he was previously followed by Dr. Fisher and more recently saw Dr. Hever Clark. Due to acute on chronic ITP earlier this year, pt was given steroids (Decadron, prednisone) but pt declined to continue them since they were causing dramatically elevated blood sugars and he has not had any issues with bleeding previously. In May, pt was seen by PCP office and had labs done which showed a platelet count of 3 and mild anemia with a Hgb of 11.3. He was reportedly taking some ibuprofen for peripheral neuropathy but stopped this more than a month ago. Now only using occasional Tylenol. 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 Home COVID test was positive. Symptoms lasted about a week then seemed to improve. Yesterday, he saw his PCP for a routine f/u apt and mentioned that he had noticed progressive HENDRIX, fatigue, and generalized weakness over the past month. He has also had intermittent dark to black stools over the past month last one this morning. Denies hematochezia, diarrhea, nausea, vomiting or abdominal pain. No prior EGD or colonoscopy. No known hx of PUD or prior GI bleed. Outpatient labs were done at visit yesterday and Hgb came back 5.9 so pt referred to the ED. In the ED, Hgb 6.2 and platelet count was 2 so pt referred for admission. Allergies Allergy/AdvReac Type Severity Reaction Status Date / Time Penicillins Allergy Unknown . Verified 07/28/21 13:14 Home Medications Medication Instructions Recorded Confirmed Type pantoprazole 40 mg tablet,delayed 40 mg PO DAILY #10 tab 07/08/20 07/28/21 Rx release dutasteride 0.5 mg capsule 0.5 mg PO DAILY #90 cap 06/02/21 07/28/21 Rx (Avodart) tamsulosin 0.4 mg capsule 0.4 mg PO DAILY #90 cap 06/02/21 07/28/21 Rx gabapentin 100 mg capsule 100 mg PO TID 07/28/21 07/28/21 History levothyroxine 150 mcg tablet 150 mcg PO DAILY 07/28/21 07/28/21 History losartan 100 1 tab PO DAILY 07/28/21 07/28/21 History mg-hydrochlorothiazide 25 mg tablet metformin 500 mg tablet 500 mg PO BID 07/28/21 07/28/21 History multivitamin with minerals 1 tab PO DAILY 07/28/21 07/28/21 History Patient History Medical History Arthritis, septic, knee BPH (benign prostatic hyperplasia) Chronic ITP (idiopathic thrombocytopenic purpura) Diabetic neuropathy Effusion of knee Hemorrhagic cyst HTN (hypertension) Hypothyroidism Lyme arthritis Sepsis Type 2 diabetes mellitus Urinary symptom or sign Surgical History H/O: vasectomy History of lithotripsy Family History Other Family history unknown Social History Smoking Status: Never smoker Hx Alcohol Use: No Hx Substance Use: No Preferred Language: Palestinian marital status: Current Living Situation: Spouse current occupational status: employed Feels Safe at Home: Yes Review of Systems Review of Systems: All systems reviewed & are unremarkable except as noted in HPI & below Constitutional: + fatigue and + weakness; no fever, no chills and no sweats Ear, Nose, Mouth, Throat: no nasal congestion, no nasal discharge and no sore throat Respiratory: + dyspnea on exertion; no cough, no hemoptysis and no wheezing Cardiovascular: + lightheadedness (with position changes); no chest pain, no palpitations, no syncope and no edema Gastrointestinal: + melena; no abdominal pain, no nausea, no vomiting and no diarrhea/loose stools Genitourinary: no dysuria or no hematuria Integumentary: no rash Neurologic: + problem reported (neuropathy in bilateral feet - improved with gabapentin); no tremor(s) and no headache(s) Physical Exam Constitutional: well developed and well nourished; no acute distress Eyes: + anicteric sclerae Neck: trachea midline Respiratory: no respiratory distress and no labored breathing Auscultation: lungs clear to auscultation bilaterally; no rales, no rhonchi and no wheezes Cardiovascular: Rate/Rhythm: regular rate and regular rhythm Vessels: p osterior tibial pulses present and radial pulses present Extremities: + abnormal capillary refill (delayed ~3 seconds) and no pedal edema Gastrointestinal (Abdomen): Inspection/Auscultation: normal bowel sounds; abdomen not distended Percussion/Palpation: abdomen soft; abdomen nontender Skin: bilateral LE with multiple petechiae Neurologic: moves all extremities; no focal motor deficits Psychiatric: A+Ox3, euthymic affect Results & Data Results & Data ([facility]) Vital Signs (Past 12 Hours) Vital Signs Temp Pulse Resp BP Pulse Ox 07/28/21 14:57 37.1 C 61 20 133/71 100 07/28/21 14:30 60 20 100 07/28/21 14:20 66 18 100 07/28/21 14:10 63 19 100 07/28/21 14:00 66 20 149/88 H 100 07/28/21 13:57 37.0 C 63 19 155/86 H 100 07/28/21 13:50 60 20 100 07/28/21 13:40 60 16 100 07/28/21 13:30 61 16 128/75 100 07/28/21 13:27 37.0 C 60 16 164/109 H 100 07/28/21 13:20 59 L 18 92 07/28/21 13:12 37.0 C 61 19 151/85 H 100 07/28/21 13:10 58 L 17 98 07/28/21 13:00 58 L 20 100 07/28/21 12:52 36.7 C 98 H 16 162/67 H 100 07/28/21 12:50 64 20 161/87 H 100 07/28/21 12:40 62 15 100 07/28/21 12:30 71 24 96 07/28/21 12:20 59 L 17 100 07/28/21 12:10 60 15 100 07/28/21 12:00 62 19 100 07/28/21 11:50 66 20 100 07/28/21 11:40 63 15 100 07/28/21 11:30 65 20 155/82 H 100 07/28/21 11:24 62 17 100 07/28/21 11:20 78 20 100 07/28/21 11:14 69 18 152/79 H 100 07/28/21 10:59 36.5 C 104 H 20 127/66 98 Laboratory Results Laboratory Results - last 24 hr 07/28/21 07/28/21 07/28/21 11:15 11:15 11:15 WBC 3.59 L RBC 2.26 L Hgb 6.2 L* Hct 20.4 L* MCV 90.3 MCH 27.4 MCHC 30.4 L RDW Std Deviation 46.7 H RDW Coeff of Jessica 14.2 Plt Count 2 L* Immature Gran % (Auto) 0.3 Neut % (Auto) 70.6 Lymph % (Auto) 20.3 Mccracken % (Auto) 6.1 Eos % (Auto) 1.9 Baso % (Auto) 0.8 Neut # (Auto) 2.53 Lymph # (Auto) 0.73 L Mccracken # (Auto) 0.22 Eos # (Auto) 0.07 Baso # (Auto) 0.03 Immature Gran # (Auto) 0.01 PT 10.0 INR 1.0 APTT 20.2 L PTT Ratio 0.8 Sodium Potassium Chloride Carbon Dioxide Anion Gap BUN Creatinine Est Cr Clr Drug Dosing Est GFR ( Amer) Est GFR (Non-Af Amer) BUN/Creatinine Ratio Glucose Calcium Total Bilirubin AST ALT Alkaline Phosphatase Troponin I Total Protein Albumin Globulin Albumin/Globulin Ratio Lipase Urine Color Urine Appearance Urine pH Ur Specific Webster Urine Protein Urine Glucose (UA) Urine Ketones Urine Blood Urine Nitrite Urine Bilirubin Urine Urobilinogen Ur Leukocyte Esterase Urine WBC (Auto) Urine RBC (Auto) U Hyaline Cast (Auto) U Epithel Cells (Auto) Urine Bacteria (Auto) COVID-19 Eval Order SARS-CoV-2 (PCR) Blood Type A Positive Blood Type Recheck Antibody Screen NEGATIVE Crossmatch See Detail 07/28/21 07/28/21 07/28/21 11:15 11:24 11:24 WBC RBC Hgb Hct MCV MCH MCHC RDW Std Deviation RDW Coeff of Jessica Plt Count Immature Gran % (Auto) Neut % (Auto) Lymph % (Auto) Mccracken % (Auto) Eos % (Auto) Baso % (Auto) Neut # (Auto) Lymph # (Auto) Mccracken # (Auto) Eos # (Auto) Baso # (Auto) Immature Gran # (Auto) PT INR APTT PTT Ratio Sodium 138 Potassium 4.1 Chloride 108 H Carbon Dioxide 23 Anion Gap 7.0 BUN 18 Creatinine 0.88 Est Cr Clr Drug Dosing 76.6 Est GFR ( Amer) 101.6 Est GFR (Non-Af Amer) 87.6 BUN/Creatinine Ratio 20.2 H Glucose 147 H Calcium 8.7 Total Bilirubin 0.3 AST 23 ALT 36 Alkaline Phosphatase 53 Troponin I < 0.015 Total Protein 6.5 Albumin 3.3 L Globulin 3.2 Albumin/Globulin Ratio 1.0 Lipase 217 Urine Color Urine Appearance Urine pH Ur Specific Webster Urine Protein Urine Glucose (UA) Urine Ketones Urine Blood Urine Nitrite Urine Bilirubin Urine Urobilinogen Ur Leukocyte Esterase Urine WBC (Auto) Urine RBC (Auto) U Hyaline Cast (Auto) U Epithel Cells (Auto) Urine Bacteria (Auto) COVID-19 Eval Order Covid19 at [facility] SARS-CoV-2 (PCR) POSITIVE A* Blood Type Blood Type Recheck Antibody Screen Crossmatch 07/28/21 07/28/21 11:35 Unknown WBC RBC Hgb Hct MCV MCH MCHC RDW Std Deviation RDW Coeff of Jessica Plt Count Immature Gran % (Auto) Neut % (Auto) Lymph % (Auto) Mccracken % (Auto) Eos % (Auto) Baso % (Auto) Neut # (Auto) Lymph # (Auto) Mccracken # (Auto) Eos # (Auto) Baso # (Auto) Immature Gran # (Auto) PT INR APTT PTT Ratio Sodium Potassium Chloride Carbon Dioxide Anion Gap BUN Creatinine Est Cr Clr Drug Dosing Est GFR ( Amer) Est GFR (Non-Af Amer) BUN/Creatinine Ratio Glucose Calcium Total Bilirubin AST ALT Alkaline Phosphatase Troponin I Total Protein Albumin Globulin Albumin/Globulin Ratio Lipase Urine Color Yellow Urine Appearance Clear Urine pH 5.5 Ur Specific Webster 1.006 Urine Protein Negative Urine Glucose (UA) Negative Urine Ketones Negative Urine Blood Trace H Urine Nitrite Negative Urine Bilirubin Negative Urine Urobilinogen Negative Ur Leukocyte Esterase Negative Urine WBC (Auto) 0 Urine RBC (Auto) 0-4 U Hyaline Cast (Auto) 0 U Epithel Cells (Auto) 0-5 Urine Bacteria (Auto) Negative COVID-19 Eval Order SARS-CoV-2 (PCR) Blood Type Blood Type Recheck A Positive Antibody Screen Crossmatch Diagnostic Findings Chest X-ray 07/28/21 - IMPRESSION: No active disease in the chest. Medications Administered Discontinued Medications Pantoprazole Sodium 40 mg/ (Syringe) 10 mls @ 5 mls/min IV NOW ONE Stop: 07/28/21 11:13 Last Admin: 07/28/21 11:28 Dose: 5 mls/min Documented by: [id number] (1) Anemia Anemia type: unspecified type Qualified Code(s): D64.9 - Anemia, unspecified
[2021-07-28] MEDS ORDERED: IMMUNE GLOBULIN (HUMAN) SOLN IV STA (15:34)
[2021-07-28] MEDS ORDERED: FAMOTIDINE 20MG IV PUSH 20 MG/5 ML SYR IV STA (15:41)
[2021-07-28] MEDS ORDERED: [UNRECOGNIZED DRUG - OTHER] IV SCH (16:30)
[2021-07-28] MEDS ORDERED: IMMUN GLOBG(IGG)/MALT/IGA OV50 100 ML IV SCH ×20 (16:30→22:30)
--- NOTE | 2021-07-28 16:31 | History & Physical Report ---
Date of Service July 28, 2021 Assessment & Plan (1) Acute upper gastrointestinal bleeding: (2) Anemia: (3) Weakness: (4) Chronic ITP (idiopathic thrombocytopenic purpura): (5) Type 2 diabetes mellitus: (6) Diabetic neuropathy: (7) HTN (hypertension): (8) Hypothyroidism: (9) BPH (benign prostatic hyperplasia): Plan: The case was discussed with hematology (Dr. Hever Clark) and gastroenterology (Joe ZAMORA/Dr. Carias) who both recommend transfer for higher level of care. Initially pt declined transfer when he spoke with the ED provider so we were consulted to discuss admission here vs. transfer. Upon further conversation with the pt including an explanation of the reasons for the transfer, pt was agreeable. [place] [facility] [place] beds currently available - currently estimated to be up to a 72 hour wait. Hematology at [facility] [place] the following recommendation: "Called through transfer center regarding patient presenting with suspected GI bleed with melena, Platelet count 2, Hgb 5. History of chronic ITP, follows . COVID positive. Awaiting transfer [place] [facility] but no beds are available for 48-72 hours. Advised to start IVIG 1gram/kg daily for 2 days at [facility]. Check hepatitis B screening, including core Ab IgG and IgM, prior to infusion. Pt has received protonix. PRBC transfusion ordered. Platelet transfusion can be considered if hemoglobin dropping acutely or evidence of hematochezia/brisk bleeding. Continue protonix and if hemoglobin stable, would consider dexamethasone 40mg daily x 4 days for ITP treatment as well." - Follow H&H Q6 hrs to monitor for stability post-transfusion - Labs in AM - IVIG ordered by the ED as recommended - Holding dexamethasone for now but will start if H&H stable - COVID precautions although not currently symptomatic, no indication for additional treatments for this at this time. - NPO for now due to concern for ongoing GI blood loss Pt seen and reviewed with attending physician, Dr. Leach. Plan of care discussed and as outlined above. Code status: full code DVT prophylaxis: SCDs Mary Chiu PA-C History of Present Illness Chief Complaint: Abnormal labs, weakness Primary Care Provider: Matt Neely MD This is a 70 y/o male with a PMH of chronic ITP, HTN, hypothyroidism, DM with associated neuropathy, and BPH who presents to the ED today after being referred from his PCP office due to outpatient labs showing a Hgb of 5.9. Pt has a history of ITP for more than twenty years for which he was previously followed by Dr. Fisher and more recently saw Dr. Hever Clark. Due to acute on chronic ITP earlier this year, pt was given steroids (Decadron, prednisone) but pt declined to continue them since they were causing dramatically elevated blood sugars and he has not had any issues with bleeding previously. In May, pt was seen by PCP office and had labs done which showed a platelet count of 3 and mild anemia with a Hgb of 11.3. He was reportedly taking some ibuprofen for peripheral neuropathy but stopped this more than a month ago. Now only using occasional Tylenol. 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 Home COVID test was positive. Symptoms lasted about a week then seemed to improve. Yesterday, he saw his PCP for a routine f/u apt and mentioned that he had noticed progressive HENDRIX, fatigue, and generalized weakness over the past month. He has also had intermittent dark to black stools over the past month last one this morning. Denies hematochezia, diarrhea, nausea, vomiting or abdominal pain. No prior EGD or colonoscopy. No known hx of PUD or prior GI bleed. Outpatient labs were done at visit yesterday and Hgb came back 5.9 so pt referred to the ED. In the ED, Hgb 6.2 and platelet count was 2 so pt referred for admission. Allergies Allergy/AdvReac Type Severity Reaction Status Date / Time Penicillins Allergy Unknown . Verified 07/28/21 13:14 Home Medications Medication Instructions Recorded Confirmed Type dutasteride 0.5 mg capsule 0.5 mg PO DAILY #90 cap 06/02/21 07/28/21 Rx (Avodart) tamsulosin 0.4 mg capsule 0.4 mg PO DAILY #90 cap 06/02/21 07/28/21 Rx gabapentin 100 mg capsule 100 mg PO TID 07/28/21 07/28/21 History levothyroxine 150 mcg tablet 150 mcg PO DAILY 07/28/21 07/28/21 History losartan 100 1 tab PO DAILY 07/28/21 07/28/21 History mg-hydrochlorothiazide 25 mg tablet metformin 500 mg tablet 500 mg PO BID 07/28/21 07/28/21 History Past Med/Surg History Medical History Arthritis, septic, knee BPH (benign prostatic hyperplasia) Chronic ITP (idiopathic thrombocytopenic purpura) Diabetic neuropathy Effusion of knee Hemorrhagic cyst HTN (hypertension) Hypothyroidism Lyme arthritis Sepsis Type 2 diabetes mellitus Urinary symptom or sign Surgical History H/O: vasectomy History of lithotripsy Family History Other Family history unknown Social History Smoking Status: Never smoker Hx Alcohol Use: No Hx Substance Use: No Preferred Language: Maori marital status: Current Living Situation: Spouse current occupational status: employed Feels Safe at Home: Yes Review of Systems Review of Systems: All systems reviewed & are unremarkable except as noted in HPI & below Constitutional: + fatigue and + weakness; no fever, no chills and no sweats Ear, Nose, Mouth, Throat: no nasal congestion, no nasal discharge and no sore throat Respiratory: + dyspnea on exertion; no cough and no wheezing Cardiovascular: + lightheadedness; no chest pain, no palpitations, no syncope and no edema Gastrointestinal: as per Subjective / HPI and + melena; no diarrhea/loose stools Genitourinary: no dysuria or no hematuria Musculoskeletal: no back pain and no neck pain Integumentary: no rash and no yellowing of the skin Neurologic: + problem reported (chronic neuropathy in bilateral feet); no tremor(s), no seizure-like activity and no headache(s) Psychiatric: no depression and no anxiety Physical Exam Constitutional: well developed and well nourished; no acute distress Eyes: + anicteric sclerae Neck: trachea midline Respiratory: no respiratory distress and no labored breathing Auscultation: lungs clear to auscultation bilaterally; no rales, no rhonchi and no wheezes Cardiovascular: Rate/Rhythm: regular rate and regular rhythm Heart Sounds: no gallop, no murmur and no cardiac rub Vessels: posterior tibial pulses present and radial pulses present Extremities: no pedal edema Gastrointestinal (Abdomen): Inspection/Auscultation: normal bowel sounds; abdomen not distended Percussion/Palpation: abdomen soft; abdomen nontender Musculoskeletal: Head/Neck/Chest: normocephalic, head atraumatic and neck supple Skin: bilateral LE with petechiae Neurologic: moves all extremities; no focal motor deficits and not confused Psychiatric: A+Ox3, euthymic affect Results & Data Results & Data ([facility]) Vital Signs (Past 12 Hours) Vital Signs Temp Pulse Resp BP Pulse Ox 07/28/21 16:08 37.0 C 62 20 134/74 100 07/28/21 15:49 36.8 C 60 19 136/74 100 07/28/21 15:40 57 L 16 100 07/28/21 15:30 59 L 21 145/72 H 100 07/28/21 15:20 58 L 19 100 07/28/21 15:15 61 20 97 07/28/21 15:00 61 15 100 07/28/21 14:57 37.1 C 61 20 133/71 100 07/28/21 14:50 68 17 100 07/28/21 14:40 65 18 100 07/28/21 14:30 60 20 100 07/28/21 14:20 66 18 100 07/28/21 14:10 63 19 100 07/28/21 14:00 66 20 149/88 H 100 07/28/21 13:57 37.0 C 63 19 155/86 H 100 07/28/21 13:50 60 20 100 07/28/21 13:40 60 16 100 07/28/21 13:30 61 16 128/75 100 07/28/21 13:27 37.0 C 60 16 164/109 H 100 07/28/21 13:20 59 L 18 92 07/28/21 13:12 37.0 C 61 19 151/85 H 100 07/28/21 13:10 58 L 17 98 07/28/21 13:00 58 L 20 100 07/28/21 12:52 36.7 C 98 H 16 162/67 H 100 07/28/21 12:50 64 20 161/87 H 100 07/28/21 12:40 62 15 100 07/28/21 12:30 71 24 96 07/28/21 12:20 59 L 17 100 07/28/21 12:10 60 15 100 07/28/21 12:00 62 19 100 07/28/21 11:50 66 20 100 07/28/21 11:40 63 15 100 07/28/21 11:30 65 20 155/82 H 100 07/28/21 11:24 62 17 100 07/28/21 11:20 78 20 100 07/28/21 11:14 69 18 152/79 H 100 07/28/21 10:59 36.5 C 104 H 20 127/66 98 Laboratory Results Laboratory Results - last 24 hr 07/28/21 07/28/21 07/28/21 11:13 11:13 11:15 WBC RBC Hgb Hct MCV MCH MCHC RDW Std Deviation RDW Coeff of Jessica Plt Count Immature Gran % (Auto) Neut % (Auto) Lymph % (Auto) [place] % (Auto) Eos % (Auto) Baso % (Auto) Neut # (Auto) Lymph # (Auto) [place] # (Auto) Eos # (Auto) Baso # (Auto) Immature Gran # (Auto) PT INR APTT PTT Ratio Sodium Potassium Chloride Carbon Dioxide Anion Gap BUN Creatinine Est Cr Clr Drug Dosing Est GFR ( Amer) Est GFR (Non-Af Amer) BUN/Creatinine Ratio Glucose Calcium Total Bilirubin AST ALT Alkaline Phosphatase Troponin I Total Protein Albumin Globulin Albumin/Globulin Ratio Lipase Urine Color Urine Appearance Urine pH Ur Specific [place] Urine Protein Urine Glucose (UA) Urine Ketones Urine Blood Urine Nitrite Urine Bilirubin Urine Urobilinogen Ur Leukocyte Esterase Urine WBC (Auto) Urine RBC (Auto) U Hyaline Cast (Auto) U Epithel Cells (Auto) Urine Bacteria (Auto) COVID-19 Eval Order SARS-CoV-2 (PCR) Hepatitis A IgM Ab Pending Hep Bs Antigen Pending Hep B Core IgM Ab Pending Hepatitis C Antibody Pending Blood Type A Positive Blood Type Recheck Antibody Screen NEGATIVE Crossmatch See Detail 07/28/21 07/28/21 07/28/21 11:15 11:15 11:15 WBC 3.59 L RBC 2.26 L Hgb 6.2 L* Hct 20.4 L* MCV 90.3 MCH 27.4 MCHC 30.4 L RDW Std Deviation 46.7 H RDW Coeff of Jessica 14.2 Plt Count 2 L* Immature Gran % (Auto) 0.3 Neut % (Auto) 70.6 Lymph % (Auto) 20.3 [place] % (Auto) 6.1 Eos % (Auto) 1.9 Baso % (Auto) 0.8 Neut # (Auto) 2.53 Lymph # (Auto) 0.73 L [place] # (Auto) 0.22 Eos # (Auto) 0.07 Baso # (Auto) 0.03 Immature Gran # (Auto) 0.01 PT 10.0 INR 1.0 APTT 20.2 L PTT Ratio 0.8 Sodium 138 Potassium 4.1 Chloride 108 H Carbon Dioxide 23 Anion Gap 7.0 BUN 18 Creatinine 0.88 Est Cr Clr Drug Dosing 76.6 Est GFR ( Amer) 101.6 Est GFR (Non-Af Amer) 87.6 BUN/Creatinine Ratio 20.2 H Glucose 147 H Calcium 8.7 Total Bilirubin 0.3 AST 23 ALT 36 Alkaline Phosphatase 53 Troponin I < 0.015 Total Protein 6.5 Albumin 3.3 L Globulin 3.2 Albumin/Globulin Ratio 1.0 Lipase 217 Urine Color Urine Appearance Urine pH Ur Specific [place] Urine Protein Urine Glucose (UA) Urine Ketones Urine Blood Urine Nitrite Urine Bilirubin Urine Urobilinogen Ur Leukocyte Esterase Urine WBC (Auto) Urine RBC (Auto) U Hyaline Cast (Auto) U Epithel Cells (Auto) Urine Bacteria (Auto) COVID-19 Eval Order SARS-CoV-2 (PCR) Hepatitis A IgM Ab Hep Bs Antigen Hep B Core IgM Ab Hepatitis C Antibody Blood Type Blood Type Recheck Antibody Screen Crossmatch 07/28/21 07/28/21 07/28/21 11:24 11:24 11:35 WBC RBC Hgb Hct MCV MCH MCHC RDW Std Deviation RDW Coeff of Jessica Plt Count Immature Gran % (Auto) Neut % (Auto) Lymph % (Auto) [place] % (Auto) Eos % (Auto) Baso % (Auto) Neut # (Auto) Lymph # (Auto) [place] # (Auto) Eos # (Auto) Baso # (Auto) Immature Gran # (Auto) PT INR APTT PTT Ratio Sodium Potassium Chloride Carbon Dioxide Anion Gap BUN Creatinine Est Cr Clr Drug Dosing Est GFR ( Amer) Est GFR (Non-Af Amer) BUN/Creatinine Ratio Glucose Calcium Total Bilirubin AST ALT Alkaline Phosphatase Troponin I Total Protein Albumin Globulin Albumin/Globulin Ratio Lipase Urine Color Urine Appearance Urine pH Ur Specific [place] Urine Protein Urine Glucose (UA) Urine Ketones Urine Blood Urine Nitrite Urine Bilirubin Urine Urobilinogen Ur Leukocyte Esterase Urine WBC (Auto) Urine RBC (Auto) U Hyaline Cast (Auto) U Epithel Cells (Auto) Urine Bacteria (Auto) COVID-19 Eval Order Covid19 at [facility] SARS-CoV-2 (PCR) POSITIVE A* Hepatitis A IgM Ab Hep Bs Antigen Hep B Core IgM Ab Hepatitis C Antibody Blood Type Blood Type Recheck A Positive Antibody Screen Crossmatch 07/28/21 Unknown WBC RBC Hgb Hct MCV MCH MCHC RDW Std Deviation RDW Coeff of Jessica Plt Count Immature Gran % (Auto) Neut % (Auto) Lymph % (Auto) [place] % (Auto) Eos % (Auto) Baso % (Auto) Neut # (Auto) Lymph # (Auto) [place] # (Auto) Eos # (Auto) Baso # (Auto) Immature Gran # (Auto) PT INR APTT PTT Ratio Sodium Potassium Chloride Carbon Dioxide Anion Gap BUN Creatinine Est Cr Clr Drug Dosing Est GFR ( Amer) Est GFR (Non-Af Amer) BUN/Creatinine Ratio Glucose Calcium Total Bilirubin AST ALT Alkaline Phosphatase Troponin I Total Protein Albumin Globulin Albumin/Globulin Ratio Lipase Urine Color Yellow Urine Appearance Clear Urine pH 5.5 Ur Specific [place] 1.006 Urine Protein Negative Urine Glucose (UA) Negative Urine Ketones Negative Urine Blood Trace H Urine Nitrite Negative Urine Bilirubin Negative Urine Urobilinogen Negative Ur Leukocyte Esterase Negative Urine WBC (Auto) 0 Urine RBC (Auto) 0-4 U Hyaline Cast (Auto) 0 U Epithel Cells (Auto) 0-5 Urine Bacteria (Auto) Negative COVID-19 Eval Order SARS-CoV-2 (PCR) Hepatitis A IgM Ab Hep Bs Antigen Hep B Core IgM Ab Hepatitis C Antibody Blood Type Blood Type Recheck Antibody Screen Crossmatch Diagnostic Findings Chest X-ray 07/28/21 - IMPRESSION: No active disease in the chest. Medications Administered Discontinued Medications Pantoprazole Sodium 40 mg/ (Syringe) 10 mls @ 5 mls/min IV NOW ONE Stop: 07/28/21 11:13 Last Admin: 07/28/21 11:28 Dose: 5 mls/min Documented by: [id number] Famotidine (Pepcid 20mg Iv Push) 20 mg in 5 mls @ 2.5 mls/min IV NOW STA Stop: 07/28/21 15:42 Last Admin: 07/28/21 15:46 Dose: 2.5 mls/min Documented by: [id number] Supervising Physician Co-Signing Physician Notes Patient is a 70-year-old male with history of chronic ITP, hypothyroidism, diabetes mellitus and other medical problems presents with history of abnormal labs. Patient also states having significant fatigue, decreased exercise tolerance, intermittent black stools since 1 month duration. Please review HPI for complete details of presentation. Blood work suggestive of hemoglobin 6.2, white blood cell count 3.29, platelet count 2. Chest x-ray showed no acute process. Discussed with oncologist Dr. Hever Clark. On exam patient is moderately built and nourished, no apparent distress, normocephalic atraumatic, lungs are clear to auscultation, normal breath sounds, S1-S2, no murmur, abdomen soft, nontender, normal bowel sounds, alert, oriented, grossly no focal deficits,+ positive petechiae on bilateral lower extremities noted. Patient was admitted for management of acute GI bleed, pancytopenia,+ COVID-19 infection. Currently he is saturating well on room air. Chest x-ray showed no acute findings. No plan for starting any treatment for COVID-19. Transfuse PRBCs as needed. Monitor H&H. Continue Protonix drip. Started on IVIG for ITP. Patient waiting for transfer to [facility] when bed available. I personally reviewed the record. Patient is interviewed and examined at bedside. Patient's care is coordinated with Danita Chiu PA-C. Please refer to the documentation above for details of patient's presentation and for discussion of other issues. (1) Anemia Anemia type: unspecified type Qualified Code(s): D64.9 - Anemia, unspecified
[2021-07-28 16:43] LABS: Hepatitis B Surf Ag Rflx Conf Neg (Neg)
[2021-07-28 17:11] LABS: Hepatitis C IgG 13Yrs+Old_Rflx Neg (Neg)
[2021-07-28 20:33] LABS: Hematocrit (blood only) 24.6 % (42-52); Hemoglobin 7.9 g/dL (14.0-18.0)
[2021-07-28 23:26] LABS: Hematocrit (blood only) 23.4 % (42-52); Hemoglobin 7.6 g/dL (14.0-18.0)
[2021-07-29] MEDS ORDERED: CARBOHYDRATES FOR HYPOGLYCEMIA PO PRN (00:36)
[2021-07-29] MEDS ORDERED: GLUCOSE 10 TABS/TUBE PO PRN (00:36)
[2021-07-29] MEDS ORDERED: DEXTROSE 50% 50 ML SYRINGE IV PRN (00:36)
[2021-07-29] MEDS ORDERED: GLUCOSE 40% GEL 15 GM TUBE PO PRN (00:36)
[2021-07-29] MEDS ORDERED: GLUCAGON FOR INJ 1 MG VIAL SQ PRN (00:36)
[2021-07-29] MEDS: INSULIN ASPART 100 UNITS/ML VIAL SC SCH ×4 (01:44→20:38)
[2021-07-29] MEDS: PANTOprazole 40 MG in DEXTROSE 5% 100 ML IV SCH ×3 (03:10→20:40)
[2021-07-29] MEDS: SODIUM CHLORIDE 0.9% 1000ML 1,000 ML IV SCH ×2 (03:14→18:30)
[2021-07-29 06:23] LABS: BUN Creatinine Ratio 13.5 (10-20); Calcium 8.5 mg/dl (8.5-10.1); Creatinine Clr Calc Pharmacy 66.8 ml/min; Est GFR (African American) 87.6 ml/min; Est GFR (Non-African American) 75.5 ml/min; Potassium 3.8 mmol/L (3.5-5.1)
[2021-07-29 06:25] LABS: Hematocrit (blood only) 23.5 % (42-52); Hemoglobin 7.6 g/dL (14.0-18.0); Mean Corpuscular Hemoglobin 28.6 pg (25-34); Mean Corpuscular Hgb Conc 32.3 g/dL (32-36); Mean Corpuscular Volume 88.3 fL (80-100); Platelet Count 4 K/uL (130-400); RDW Coefficient of Variation 14.5 % (11.5-14.5); Red Blood Count 2.66 M/uL (4.7-6.1); White Blood Count 3.21 K/uL (4.8-10.8)
[2021-07-29 06:39] LABS: Basophils # (auto) 0.03 K/uL (0-0.2); Basophils % (auto) 0.9 %; Eosinophils # (auto) 0.11 K/uL (0-0.5); Eosinophils % (auto) 3.4 %; Giant Platelets 1+; Immature Granulocytes # (auto) 0.01 K/uL (0.00-0.02); Immature Granulocytes % (auto) 0.3 %; Lymphocytes % (auto) 21.8 %; Monocytes % (auto) 9.3 %; Neutrophils # (auto) 2.06 K/uL (1.4-6.5); Neutrophils % (auto) 64.3 %; Platelet Estimate SIGNIFIC DECREASED (Normal); Polychromasia 1+
[2021-07-29] MEDS ORDERED: LEVOTHYROXINE SODIUM 75 MCG in SYRINGE 0 ML IV SCH (09:00)
--- NOTE | 2021-07-29 09:07 | Electrocardiogram Report ---
Test Reason : Blood Pressure : / mmHG Vent. Rate : 062 BPM Atrial Rate : 062 BPM P-R Int : 162 ms QRS Dur : 092 ms QT Int : 440 ms P-R-T Axes : 031 027 060 degrees QTc Int : 446 ms Normal sinus rhythm Normal ECG When compared with ECG of 22-JAN-2001 10:54, No significant change was found Confirmed by Candelario Tapia ([id number]) on 07/29/2021 9:07:50 AM Referred By: Confirmed By:Candelario Tapia
[2021-07-29 11:46] LABS: Hematocrit (blood only) 23.9 % (42-52); Hemoglobin 7.6 g/dL (14.0-18.0)
[2021-07-29] MEDS ORDERED: IMMUN GLOBG(IGG)/MALT/IGA OV50 100 ML IV SCH ×7 (17:30→23:30)
--- NOTE | 2021-07-29 19:40 | Hospitalist Progress Note ---
Date of Service July 29, 2021 Assessment & Plan (1) Acute upper gastrointestinal bleeding: (2) Anemia: (3) Weakness: (4) Chronic ITP (idiopathic thrombocytopenic purpura): (5) Type 2 diabetes mellitus: (6) Diabetic neuropathy: (7) HTN (hypertension): (8) Hypothyroidism: (9) BPH (benign prostatic hyperplasia): Plan: Patient condition is discussed with hematology (Dr. Hever Clark) and gastroenterology (Joe ZMAORA/Dr. Carias) who both recommend transfer for higher level of care. Initially pt declined transfer when he spoke with the ED provider so we were consulted to discuss admission here vs. transfer. Upon further conversation with the pt including an explanation of the reasons for the transfer, pt was agreeable. Pt has been [place] [facility] but there are no beds currently available - currently estimated to be up to a 72 hour wait. Acute Upper GI Bleeding H/O intermittent Melena In setting of ITP Presented with Hb 6.2 S/P 2 units PRBCs Continue Protonix drip, IV fluids Currently no acute bleeding Discussed with Collette JADE, advised to transfer to tertiary care facility Monitor H&H and transfuse as needed COVID 19 infection CXR:No active disease in the chest. Saturating well on room air Denies any respiratory symptoms Currently does not qualify for any treatment ITP H/O Chronic ITP Discussed with Hematology at [facility] provided the following recommendation: "Called through transfer center regarding patient presenting with suspected GI bleed with melena, Platelet count 2, Hgb 5. History of chronic ITP, follows . COVID positive. Awaiting transfer to [facility], but no beds are available for 48-72 hours. Advised to start IVIG 1gram/kg daily for 2 days at [facility]. Check hepatitis B screening, including core Ab IgG and IgM, prior to infusion. Pt has received protonix. PRBC transfusion ordered. Platelet transfusion can be considered if hemoglobin dropping acutely or evidence of hematochezia/brisk bleeding. Continue protonix and if hemoglobin stable, would consider dexamethasone 40mg daily x 4 days for ITP treatment as well." Received IVIG Day #2/2 Platelet count slowly improving Consider starting dexamethasone tomorrow if Hb stable Monitor platelet count DM II Hold Metformin Continue insulin sliding scale while hospitalized Hypothyroidism Continue levothyroxine DVT px: SCDs Code Status Full Code Disposition Waiting to be transferred to [facility] when bed is available Admission and Anticipated Discharge Date Admission Date: July 28, 2021 Subjective Patient is seen and examined bedside States doing better today Denies any recurrence of bleeding issues Discussed with oncology Denies any chest pain, shortness of breath, dizziness, nausea, abdominal pain Offers no other complaints Waiting for transfer to tertiary care facility. Review of Systems 2 Review of Systems: All systems reviewed & are unremarkable except as noted in Subjective Physical Exam Physical Exam: Physical Exam: Vitals signs as noted above General Appearance:Moderately built and nourished, no apparent distress Head: normocephalic, Atraumatic Eyes: normal inspection, EOMI Neck: supple, Trachea midline Respiratory/Chest: Normal breath sounds, CTA Cardiovascular: S1, S2, No murmur Abdomen/GI:Soft, Non tender, Bowel sounds present Extremities/Musculoskeletal:normal inspection, no edema Neurologic/Psych:AAOX3, grossly no focal neurological deficits Skin: normal color, warm, + petechiae on lower extremities Results & Data Results & Data ([facility]) Vital Signs (Past 12 Hours) Vital Signs Temp Pulse Pulse Resp BP BP Pulse Ox 07/29/21 18:48 62 20 147/80 H 97 07/29/21 18:28 36.9 C 58 L 20 140/64 100 07/29/21 12:00 65 16 99 07/29/21 11:30 100 07/29/21 11:00 53 L 147/83 H 99 07/29/21 10:30 55 L 15 99 07/29/21 10:00 65 116/61 92 07/29/21 09:33 60 16 142/78 H 100 07/29/21 09:30 57 L 99 07/29/21 09:00 62 20 142/78 H 98 07/29/21 08:30 66 17 100 07/29/21 08:00 64 23 99 07/29/21 07:30 54 L 17 99 Laboratory Results Short CBC 07/28/21 07/28/21 07/29/21 Range/Units 20:20 23:20 05:31 WBC 3.21 L (4.8-10.8) K/uL Hgb 7.9 L 7.6 L 7.6 L (14.0-18.0) g/dL Hct 24.6 L 23.4 L 23.5 L (42-52) % Plt Count 4 L* D (130-400) K/uL 07/29/21 Range/Units 11:22 WBC (4.8-10.8) K/uL Hgb 7.6 L (14.0-18.0) g/dL Hct 23.9 L (42-52) % Plt Count (130-400) K/uL BMP 07/29/21 05:31 Sodium 138 Potassium 3.8 Chloride 109 H Carbon Dioxide 24 BUN 14 Creatinine 1.01 Glucose 142 H Calcium 8.5 (1) Anemia Anemia type: unspecified type Qualified Code(s): D64.9 - Anemia, unspecified
--- NOTE | 2021-07-29 19:55 | Discharge Summary ---
Date of Service July 29, 2021 Admission HPI Per Admitting Provider This is a 70 y/o male with a PMH of chronic ITP, HTN, hypothyroidism, DM with associated neuropathy, and BPH who presents to the ED today after being referred from his PCP office due to outpatient labs showing a Hgb of 5.9. Pt has a history of ITP for more than twenty years for which he was previously followed by Dr. Fisher and more recently saw Dr. Hever Clark. Due to acute on chronic ITP earlier this year, pt was given steroids (Decadron, prednisone) but pt declined to continue them since they were causing dramatically elevated blood sugars and he has not had any issues with bleeding previously. In May, pt was seen by PCP office and had labs done which showed a platelet count of 3 and mild anemia with a Hgb of 11.3. He was reportedly taking some ibuprofen for peripheral neuropathy but stopped this more than a month ago. Now only using occasional Tylenol. 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 Home COVID test was positive . Symptoms lasted about a week then seemed to improve. Yesterday, he saw his PCP for a routine f/u apt and mentioned that he had noticed progressive HENDRIX, fatigue, and generalized weakness over the past month. He has also had intermittent dark to black stools over the past month last one this morning. Denies hematochezia, diarrhea, nausea, vomiting or abdominal pain. No prior EGD or colonoscopy. No known hx of PUD or prior GI bleed. Outpatient labs were done at visit yesterday and Hgb came back 5.9 so pt referred to the ED. In the ED, Hgb 6.2 and platelet count was 2 so pt referred for admission. Admission Exam Per Admitting Provider Physical Exam Constitutional: well developed and well nourished; no acute distress Eyes: + anicteric sclerae Neck: trachea midline Respiratory: no respiratory distress and no labored breathing Auscultation: lungs clear to auscultation bilaterally; no rales, no rhonchi and no wheezes Cardiovascular: Rate/Rhythm: regular rate and regular rhythm Heart Sounds: no gallop, no murmur and no cardiac rub Vessels: posterior tibial pulses present and radial pulses present Extremities: no pedal edema Gastrointestinal (Abdomen): Inspection/Auscultation: normal bowel sounds; abdomen not distended Percussion/Palpation: abdomen soft; abdomen nontender Musculoskeletal: Head/Neck/Chest: normocephalic, head atraumatic and neck supple Skin: bilateral LE with petechiae Neurologic: moves all extremities; no focal motor deficits and not confused Psychiatric: A+Ox3, euthymic affect Principal Diagnosis Melena ITP COVID-19 infection Discharge Data Allergies Allergy/AdvReac Type Severity Reaction Status Date / Time Penicillins Allergy Unknown . Verified 07/28/21 13:14 Consultations 07/28/21 12:28 ED Decision to Admit Stat Hospital Course (1) Acute upper gastrointestinal bleeding: (2) Anemia: (3) Weakness: (4) Chronic ITP (idiopathic thrombocytopenic purpura): (5) Type 2 diabetes mellitus: (6) Diabetic neuropathy: (7) HTN (hypertension): (8) Hypothyroidism: (9) BPH (benign prostatic hyperplasia): Patient condition is discussed with hematology (Dr. Hever Clark) and gastroenterology (Joe ZAMORA/Dr. Carias) who both recommend transfer for higher level of care. Initially pt declined transfer when he spoke with the ED provider so we were consulted to discuss admission here vs. transfer. Upon further conversation with the pt including an explanation of the reasons for the transfer, pt was agreeable. Pt has been accepted at [facility] but there are no beds currently available - currently estimated to be up to a 72 hour wait. Acute Upper GI Bleeding H/O intermittent Melena In setting of ITP Presented with Hb 6.2 S/P 2 units PRBCs Continue Protonix drip, IV fluids Currently no acute bleeding Discussed with Collette JADE, advised to transfer to tertiary care facility Monitor H&H and transfuse as needed COVID 19 infection CXR:No active disease in the chest. Saturating well on room air Denies any respiratory symptoms Currently does not qualify for any treatment ITP H/O Chronic ITP Discussed with Hematology at [facility] provided the following recommendation: "Called through transfer center regarding patient presenting with suspected GI bleed with melena, Platelet count 2, Hgb 5. History of chronic ITP, follows . COVID positive. Awaiting transfer to [facility], but no beds are available for 48-72 hours. Advised to start IVIG 1gram/kg daily for 2 days at [facility]. Check hepatitis B screening, including core Ab IgG and IgM, prior to infusion. Pt has received protonix. PRBC transfusion ordered. Platelet transfusion can be considered if hemoglobin dropping acutely or evidence of hematochezia/brisk bleeding. Continue protonix and if hemoglobin stable, would consider dexamethasone 40mg daily x 4 days for ITP treatment as well." Received IVIG Day #2/2 Platelet count slowly improving Consider starting dexamethasone tomorrow if Hb stable Monitor platelet count DM II Hold Metformin Continue insulin sliding scale while hospitalized Hypothyroidism Continue levothyroxine DVT px: SCDs Code Status Full Code Disposition Waiting to be transferred to [facility] when bed is available Total Time Total Time Spent Total Time Spent (In Minutes): 50 minutes Discharge Plan Discharge Items Patient Disposition: Transfer Acute Care Hospital Reason For Visit: GI BLEED, THROMBOCYTOPENIA Discharge Diagnosis: Melena ITP COVID-19 infection Activity: Per Instructions section Exercise/Sports: Wait until after follow-up appointment Non-emergency contact: Primary Care Provider, Ase Certified Technician and Oncologist Call non-emergency contact if: you have any medication questions, your symptoms worsen, your pain is concerning for you and you have a fever Follow-up/Referrals: Matt Neely MD [Primary Care Provider] - Diet: Carb Consistent or DM2 Addtl Attending Provider Instructions: Follow up with Dr Giron (Internal Medicine)/Eboni Arellano (Heme-Onch) at [facility] for further management. Pending Studies at Discharge: Yes Studies:: Serological studies Stand-Alone Forms: My [facility] Skilled Items Patient informed of condition?: Yes DNR: No Discharge Level of Care: Other Communicable Disease: Yes Discharge Prognosis: Stable Lines: Peripheral IV Urinary Catheter: No Medications and DC Order Prescriptions: Continued dutasteride [Avodart] 0.5 mg capsule 0.5 mg PO DAILY Qty: 90 RF: 3 tamsulosin 0.4 mg capsule 0.4 mg PO DAILY Qty: 90 RF: 3 metformin 500 mg tablet 500 mg PO BID RF: 0 losartan-hydrochlorothiazide 100-25 mg tablet 1 tab PO DAILY RF: 0 levothyroxine 150 mcg tablet 150 mcg PO DAILY RF: 0 gabapentin 100 mg capsule 100 mg PO TID RF: 0 Discharge Orders: Discharge Order (Routine); Ordered 07/29/21 Ordered By: Jesus Ceballos Admission Data Admit Date/Time: 11/17/21 16:43 Attending Provider: Miguel Leach Admit Provider: Miguel Leach Primary Care Provider: Matt Neely Other Providers: Miguel Leach
[2021-07-29 20:18] LABS: Hematocrit (blood only) 23.4 % (42-52); Hemoglobin 7.4 g/dL (14.0-18.0)
[2021-07-30 16:56] LABS: Hepatitis A Antibody IgM NON-REACTIVE (NON-REACTIVE); Hepatitis B Core Antibody IgM NON-REACTIVE (NON-REACTIVE)
== END 2021-07-29 21:50 | disposition short-term general hospital (02) | DRG 377 ==
LOC: ED 10:53 → EDINP 16:43